=== PATIENT | female | born 1955 | race Two or more races ===

== ENCOUNTER 2020-07-21 15:10 | Outpatient (REF) | payer OTHER, SELFPAY ==
--- NOTE | 2020-07-21 15:14 | MM_ITS ---
EXAMINATION: MM SCREENING DIGITAL BREAST TOMOSYNTHESIS, BILATERAL CLINICAL INFORMATION: Screening. Asymptomatic. Family history breast cancer in sister. The lifetime risk of breast cancer based on the Tyrer-Cuzick Model is 12%. COMPARISON: Mammography: 07/16/2019, 06/30/2018 TECHNIQUE: Digital breast tomosynthesis is performed in both the craniocaudal and mediolateral oblique views along with computer-aided detection (CAD). Synthesized 2D images are generated from the tomosynthesis. FINDINGS: There are scattered areas of fibroglandular density (ACR BI-RADS breast composition Category b). There are no significant masses, abnormal calcifications, or other abnormalities. There is stable small smooth nodularity in both breasts, some intramammary nodes. Grouped dermal calcifications again seen posterior 7:00 left breast. There are bilateral vascular calcifications. No significant changes. MM/MM tomosynthesis screening BI IMPRESSION: No significant changes from prior studies. ASSESSMENT: BI-RADS 2: Benign RECOMMENDATION: Routine annual mammography screening. This patient's information was entered into a reminder system with a target due date for their next mammogram.
== END 2020-07-21 15:11 | disposition home or self-care (01) ==
LOC: HO.MAMMO 15:10
PROVIDERS: PCP Nurse Practitioner Family; Visit Provider Nurse Practitioner Family
DX: Z12.31 Encounter for screening mammogram for malignant neoplasm of breast (principal)
CPT/HCPCS: 77063; 77067

== ENCOUNTER 2021-02-20 10:10 | Emergency (ER) | payer MEDICAID, SELFPAY ==
--- NOTE | 2021-02-20 | ECG_ITS ---
Test Reason : EDMD Blood Pressure : / mmHG Vent. Rate : 059 BPM Atrial Rate : 059 BPM P-R Int : 160 ms QRS Dur : 090 ms QT Int : 440 ms P-R-T Axes : 048 003 006 degrees QTc Int : 435 ms Sinus bradycardia Minimal voltage criteria for LVH, may be normal variant Nonspecific T wave abnormality Abnormal ECG When compared with ECG of 26-NOV-2008 07:33, Nonspecific T wave abnormality now evident in Anterior leads Referred By: Generic ED Physician Electronically Signed By:ALEX BUSCH
--- NOTE | ~2021-02-20 | XR_ITS ---
EXAMINATION: XR CHEST CLINICAL INFORMATION: Hypertension COMPARISON: Chest 11/26/2008 TECHNIQUE: Frontal view of the chest was obtained. FINDINGS: No significant abnormality is noted involving the heart, lungs, mediastinum, bony thorax or soft tissues. XR/XR chest 1V IMPRESSION: Unremarkable chest examination.
[2021-02-20 10:39] VITALS: BP 120/70; PULSE 60; RESP 16; TEMP 37.1; O2SAT 98; BMI 30.3
[2021-02-20 12:36] LABS: MANUAL DIFF FLAG NO
[2021-02-20 12:40] LABS: Basophils Absolute Auto 0.1 X10*3/uL (0.0-0.2); Basophils Percent Auto 0.3 % (0-2); Eosinophils Absolute Auto 0.1 X10*3/uL (0.0-0.4); Eosinophils Percent Auto 0.6 % (0-4); Hematocrit 43.3 % (37-47); Hemoglobin 14.8 g/dl (12.0-16.0); Imm Gran Abs Auto 0.07 X10*3/uL (0.00-0.03); Imm Gran Pct Auto 0.4 % (0.0-0.4); Lymphocytes Absolute Auto 1.7 X10*3/uL (1.2-4.9); Lymphocytes Percent Auto 9.4 % (20-40); Mean Corpuscular HGB Conc 34.2 g/dl (31.0-35.0); Mean Corpuscular Hemoglobin 30.7 pg (27.0-33.0); Mean Corpuscular Volume 89.8 fL (80-98); Mean Platelet Volume 10.9 fL (9.4-12.3); Monocytes Absolute Auto 1.2 X10*3/uL (0.1-1.2); Monocytes Percent Auto 6.6 % (2-11); Neutrophils Absolute Auto 14.7 X10*3/uL (2.0-8.3); Neutrophils Percent Auto 82.7 % (45-73); Platelet Count 219 X10*3/uL (160-400); Red Blood Count 4.82 X10*6/uL (4.20-5.50); Red Cell Distribution Width 13.4 % (11.0-16.0); White Blood Count 17.8 X10*3/uL (4.8-10.8)
[2021-02-20 13:03] LABS: Glucose, Whole Blood 118 mg/dL (60-115)
[2021-02-20 13:04] LABS: Anion Gap 15 (12-20); Blood Urea Nitrogen 25 mg/dL (9-16); Calcium 10.7 mg/dL (8.4-10.2); Carbon Dioxide 29 mmol/L (22-29); Chloride 102 mmol/L (96-108); Creatinine Clr Calc Pharmacy 55.3; Estimated Glomerular Filt Rate 57; Glucose Random 137 mg/dL (60-115); Potassium 3.5 mmol/L (3.3-5.1); Sodium 142 mmol/L (135-145)
[2021-02-20 13:05] LABS: Troponin-I High Sensitivity 4.3 ng/L (<3.5-17.0)
--- NOTE | 2021-02-20 14:06 | ED.GENADULT ---
HPI - General Adult General Chief complaint: General Medical Stated complaint: LOW BP Time Seen by Provider: 02/20/21 13:31 Source: patient Mode of arrival: ambulatory Limitations: no limitations History of Present Illness HPI narrative: 65-year-old female history of hypertension patient taking atenolol 100 mg daily/lisinopril 20 mg daily. Patient recently been checking her blood pressure complaining that her blood pressure sometimes drop to her blood pressure. When blood pressure drops patient feel like she is going to pass out, patient declined any chest pain or shortness of breath. No fever, no chills, no coughing, no urinary tract symptoms no dysuria, no urinary frequency. Related Data Previous Rx's Medication Instructions Recorded cefuroxime axetil 500 mg PO BID #14 tab 02/20/21 Allergies Allergy/AdvReac Type Severity Reaction Status Date / Time No Known Allergies Allergy Unverified 06/16/20 14:47 [No Known Allergies*] Review of Systems Review of Systems: All other systems are reviewed and are negative Constitutional: Reports as per HPI and Reports no additional constitutional complaints Eyes: Reports as per HPI and Reports no additional eye complaints Reports system reviewed and no additional complaints, except as documented Cardiovascular: Reports as per HPI and Reports no additional cardiovascular complaints Respiratory: Reports as per HPI and Reports no additional respiratory complaints Gastrointestinal: Reports as per HPI and Reports no additional gastrointestinal complaints Genitourinary: Reports no additional female genitourinary complaints Musculoskeletal: Reports no additional musculoskeletal complaints Skin/Breast: Reports system reviewed and no additional complaints, except as docu Psychiatric: Reports no additional psychiatric complaints Endocrine: Reports no additional endocrine complaints Hematologic/Lymphatic: Reports no additional hematologic/lymphatic complaints Allergic/Immunologic: Reports no additional allergic/immunologic complaints Reports system reviewed and no additional complaints, except as documented and Reports Abnormal speech present [facility] Social History Social History Alcohol intake: never Smoking Status: Never smoker Use of substances other than those prescribed or required for medical reasons: No Advance Directives: Yes Advance Directives Information Provided: Yes Advance Directives on File: No Patient : No Physical Exam Vital Signs: Vital Signs: Last Vital Signs Temp 97.7 F 02/20/21 15:00 Pulse 62 02/20/21 16:12 Resp 18 02/20/21 16:12 BP 145/67 H 02/20/21 16:12 Pulse Ox 100 02/20/21 16:12 Body Mass Index 30.3 Vital signs have been reviewed as appeared to be correct. Blood pressure normal. Heart rate normal. Respiration rate normal. Temperature normal. Oxygen saturation normal. Appearance: Alert. Oriented X3. No acute distress. Head: Normal external exam. Normocephalic. Atraumatic. No [place] signs noted. No raccoon eyes noted Eyes: PERRLA. EOMI. Conjunctiva and sclera normal. Eyelids normal. ENT: TM's Normal. Pharynx normal. Uvula midline. Moist mucous membranes. No trismus noted. No drooling noted. No muffled voice noted. Neck: Normal inspection. Neck supple. FROM. No adenopathy. Thyroid Normal. No meningeal signs. No neck mass noted. CVS: Normal heart rate and rhythm. Heart sound normal. No murmurs noted. Pulses normal throughout. Respiratory: No respiratory distress. Painless inspiration. Breath sounds normal. No wheezes/rales/rhonchi noted. Chest nontender. No accessory muscle usage noted or decreased air movement noted. Abdomen: Soft and nontender. Bowel sounds normal in all 4 quadrants. No distention noted. No organomegaly noted. No visible injury noted. Back: No CVA tenderness. Full range of motion noted. Skin: Skin warm and dry. Normal skin color. Normal skin turgor. No rashes/lesions/lacerations noted. Extremities: No lower extremity edema. Extremities exhibit normal range of motion. Extremities nontender. Neuro: Oriented X 3. No motor deficit. No sensory deficit. Reflexes normal. Course Course Course Narrative: Assessment and plan. 65-year-old female came in for hypotension at home, patient then in the emergency department for few hours no reported hypotension while in the emergency department, patient remained asymptomatic, patient is taking lisinopril 20 mg and atenolol 100 mg which I thought to be to high dosage, I recommended to the patient to cut down the pills to half dosage, patient stated that she will not do that until get back to her primary doctor. Until then patient was instructed to drink plenty of fluids. Patient has no symptoms for UTI. Patient was instructed to drink plenty of fluids. Leukocytosis could be secondary to UTI. Not meeting criteria for SIRS, no sepsis. Medical Decision Making Lab Data Lab results reviewed: Yes I reviewed the patient's lab results. Result diagrams: 02/20/21 12:27 02/20/21 12:27 Labs: Lab Results 02/20/21 02/20/21 02/20/21 Range/Units 12:26 12:27 12:27 WBC 17.8 H (4.8-10.8) X10*3/uL RBC 4.82 (4.20-5.50) X10*6/uL Hgb 14.8 (12.0-16.0) g/dl Hct 43.3 (37-47) % MCV 89.8 (80-98) fL MCH 30.7 (27.0-33.0) pg MCHC 34.2 (31.0-35.0) g/dl RDW 13.4 (11.0-16.0) % Plt Count 219 (160-400) X10*3/uL MPV 10.9 (9.4-12.3) fL Immature Gran % (Auto) 0.4 (0.0-0.4) % Neut % (Auto) 82.7 H (45-73) % Lymph % (Auto) 9.4 L (20-40) % [place] % (Auto) 6.6 (2-11) % Eos % (Auto) 0.6 (0-4) % Baso % (Auto) 0.3 (0-2) % Lymph # (Auto) 1.7 (1.2-4.9) X10*3/uL [place] # (Auto) 1.2 (0.1-1.2) X10*3/uL Eos # (Auto) 0.1 (0.0-0.4) X10*3/uL Baso # (Auto) 0.1 (0.0-0.2) X10*3/uL Abs Immat Gran (auto) 0.07 H (0.00-0.03) X10*3/uL Absolute Neuts (auto) 14.7 H (2.0-8.3) X10*3/uL Absolute Nucleated RBC 0.000 (0.0-0.012) X10*3/uL Nucleated RBC % (auto) 0.0 (0.0-0.2) /100WBC Sodium 142 (135-145) mmol/L Potassium 3.5 (3.3-5.1) mmol/L Chloride 102 (96-108) mmol/L Carbon Dioxide 29 (22-29) mmol/L Anion Gap 15 (12-20) BUN 25 H (9-16) mg/dL Creatinine 0.99 (0.5-1.4) mg/dL Estim Creat Clear Calc 55.3 Estimated GFR 57 POC Glucose (60-115) mg/dL Random Glucose 137 H (60-115) mg/dL Calcium 10.7 H (8.4-10.2) mg/dL Troponin I High Sens 4.3 (<3.5-17.0) ng/L Urine Color Urine Appearance Urine pH (5.0-8.0) Ur Specific [place] (1.005-1.025) Urine Protein (NEG-TRACE) MG/DL Urine Glucose (UA) (NEG) MG/DL Urine Ketones (NEG) MG/DL Urine Blood (NEG) Urine Nitrite (NEG) Ur Leukocyte Esterase (NEG) 02/20/21 02/20/21 Range/Units 12:31 16:16 WBC (4.8-10.8) X10*3/uL RBC (4.20-5.50) X10*6/uL Hgb (12.0-16.0) g/dl Hct (37-47) % MCV (80-98) fL MCH (27.0-33.0) pg MCHC (31.0-35.0) g/dl RDW (11.0-16.0) % Plt Count (160-400) X10*3/uL MPV (9.4-12.3) fL Immature Gran % (Auto) (0.0-0.4) % Neut % (Auto) (45-73) % Lymph % (Auto) (20-40) % [place] % (Auto) (2-11) % Eos % (Auto) (0-4) % Baso % (Auto) (0-2) % Lymph # (Auto) (1.2-4.9) X10*3/uL [place] # (Auto) (0.1-1.2) X10*3/uL Eos # (Auto) (0.0-0.4) X10*3/uL Baso # (Auto) (0.0-0.2) X10*3/uL Abs Immat Gran (auto) (0.00-0.03) X10*3/uL Absolute Neuts (auto) (2.0-8.3) X10*3/uL Absolute Nucleated RBC (0.0-0.012) X10*3/uL Nucleated RBC % (auto) (0.0-0.2) /100WBC Sodium (135-145) mmol/L Potassium (3.3-5.1) mmol/L Chloride (96-108) mmol/L Carbon Dioxide (22-29) mmol/L Anion Gap (12-20) BUN (9-16) mg/dL Creatinine (0.5-1.4) mg/dL Estim Creat Clear Calc Estimated GFR POC Glucose 118 H (60-115) mg/dL Random Glucose (60-115) mg/dL Calcium (8.4-10.2) mg/dL Troponin I High Sens (<3.5-17.0) ng/L Urine Color YELLOW Urine Appearance HAZY Urine pH 6.0 (5.0-8.0) Ur Specific [place] 1.010 (1.005-1.025) Urine Protein NEG (NEG-TRACE) MG/DL Urine Glucose (UA) NEG (NEG) MG/DL Urine Ketones NEG (NEG) MG/DL Urine Blood NEG (NEG) Urine Nitrite NEG (NEG) Ur Leukocyte Esterase 1+ H (NEG) Imaging Data Chest x-ray: Radiologist's impression: Unremarkable chest examination. ECG Data Interpretation: sinus bradycardia at 59 beats per minute, LVH, left axis deviation, nonspecific T-wave changes, no major change from old EKG. Discharge Plan Discharge Clinical Impression: Hypotension, Leukocytosis UTI (urinary tract infection) Qualifiers: Urinary tract infection type: acute cystitis Hematuria presence: without hematuria Qualified Code(s): N30.00 - Acute cystitis without hematuria Patient Disposition: Home, Self-Care Instructions: Hypertension (ED) Additional Instructions: He should cut your blood pressure pills in to have of the does. Lisinopril should be 10 mg orally once a day instead of 20 mg pill. Atenolol should be 50 mg orally once a day instead of 100 mg pill a day. Prescriptions: New cefuroxime axetil 500 mg tablet 500 mg PO BID Qty: 14 RF: 0 Referrals: Physician,Unknown [Primary Care Provider] - 2 days
[2021-02-20 15:00] VITALS: BP 119/55; PULSE 61; RESP 18; TEMP 36.5; O2SAT 97
[2021-02-20] MEDS: 0.9 % Sodium Chloride 1,000 ML 999 ML IVCONT (15:27)
[2021-02-20 16:12] VITALS: BP 145/67; PULSE 62; RESP 18; O2SAT 100
[2021-02-20 16:22] LABS: Glucose Urine UA NEG (NEG); Leukocyte Esterase Urine 1+ (NEG); Nitrite Urine NEG (NEG); UACC Culture Trigger YES; Urine Blood NEG (NEG); Urine Ketones NEG (NEG); Urine Protein NEG (NEG-TRACE)
[2021-02-20 16:23] LABS: Appearance Urine HAZY; Color Urine YELLOW
[2021-02-20 16:31] LABS: Bacteria Urine 2+ /LPF; Mucus Urine 2+ /LPF; RBC Urine 0-2 /HPF (0); Squamous Epithelial Cell Urine 2+ /LPF
== END 2021-02-20 16:48 | disposition home or self-care (01) ==
PROVIDERS: Emergency Provider Emergency Medicine
DX: I95.9 Hypotension, unspecified (principal); D72.829 Elevated white blood cell count, unspecified; N30.00 Acute cystitis without hematuria; R00.1 Bradycardia, unspecified
CPT/HCPCS: 36415; 71045; 80048; 81001; 81003; 82947; 84484; 85025; 87086; 93005; 96360; 99284

== ENCOUNTER 2021-03-21 07:16 | Outpatient (REF) | payer MEDICAID, SELFPAY ==
[2021-03-21 07:53] LABS: MANUAL DIFF FLAG NO
[2021-03-21 07:58] LABS: Basophils Percent Auto 0.6 % (0-2); Eosinophils Absolute Auto 0.2 X10*3/uL (0.0-0.4); Eosinophils Percent Auto 2.5 % (0-4); Hematocrit 42.3 % (37-47); Hemoglobin 14.2 g/dl (12.0-16.0); Imm Gran Abs Auto 0.01 X10*3/uL (0.00-0.03); Imm Gran Pct Auto 0.2 % (0.0-0.4); Lymphocytes Percent Auto 31.5 % (20-40); Mean Corpuscular HGB Conc 33.6 g/dl (31.0-35.0); Mean Corpuscular Hemoglobin 30.1 pg (27.0-33.0); Mean Corpuscular Volume 89.6 fL (80-98); Monocytes Absolute Auto 0.5 X10*3/uL (0.1-1.2); Monocytes Percent Auto 7.1 % (2-11); Neutrophils Absolute Auto 3.8 X10*3/uL (2.0-8.3); Neutrophils Percent Auto 58.1 % (45-73); Platelet Count 232 X10*3/uL (160-400); Red Blood Count 4.72 X10*6/uL (4.20-5.50); Red Cell Distribution Width 13.3 % (11.0-16.0); White Blood Count 6.5 X10*3/uL (4.8-10.8)
[2021-03-21 08:45] LABS: Alanine Aminotransferase 22 U/L (0-31); Albumin Level 4.6 g/dL (3.5-5.0); Alkaline Phosphatase 124 U/L (39-117); Anion Gap 15 (12-20); Aspartate Amino Transferase 25 U/L (5-31); Bilirubin Total 2.4 mg/dL (0.0-1.0); Blood Urea Nitrogen 9 mg/dL (9-16); C Reactive Protein 0.59 mg/dL (< or = 0.50); Calcium 10.5 mg/dL (8.4-10.2); Carbon Dioxide 25 mmol/L (22-29); Chloride 108 mmol/L (96-108); Cholesterol 133 mg/dL; Erythrocyte Sedimentation Rate 10 MM/HR (0-20); Estimated Glomerular Filt Rate > 60; Glucose Random 97 mg/dL (60-115); HDL Cholesterol 49 mg/dL; LDL Cholesterol Calculated 55 mg/dl; Potassium 3.9 mmol/L (3.3-5.1); Sodium 144 mmol/L (135-145); Total Protein 7.8 g/dL (6.5-8.0); Triglycerides 146 mg/dL
[2021-03-21 08:46] LABS: Creatinine Urine 42.61 mg/dL; Microalbumin Urine < 5.0 mg/L
[2021-03-21 09:04] LABS: Thyroid Stimulating Hormone 0.67 uIU/mL (0.32-4.0); Vitamin D 25-OH Total 29.7 ng/mL (>30)
[2021-03-21 09:27] LABS: Folate 11.5 ng/mL (> or = 4.0); Vitamin B12 634 pg/mL (200-900)
== END 2021-03-21 07:17 | disposition home or self-care (01) ==
LOC: HO.LAB 07:16
PROVIDERS: PCP Internal Medicine; Visit Provider Internal Medicine
DX: E11.9 Type 2 diabetes mellitus without complications (principal); E78.2 Mixed hyperlipidemia; I10 Essential (primary) hypertension
CPT/HCPCS: 36415; 80053; 80061; 82043; 82306; 82607; 82746; 84443; 85025; 85652; 86140

== ENCOUNTER 2021-07-24 13:39 | Outpatient (REF) | payer MEDICAID, SELFPAY ==
--- NOTE | ~2021-07-24 | MM_ITS ---
EXAMINATION: MM SCREENING DIGITAL BREAST TOMOSYNTHESIS, BILATERAL CLINICAL INFORMATION: Screening. Asymptomatic. The lifetime risk of breast cancer based on the Tyrer-Cuzick Model is 10%. COMPARISON: Mammography: 07/21/2020, 07/16/2019, 06/30/2018 TECHNIQUE: Digital breast tomosynthesis is performed in both the craniocaudal and mediolateral oblique views along with computer-aided detection (CAD). Synthesized 2D images are generated from the tomosynthesis. FINDINGS: There are scattered areas of fibroglandular density (ACR BI-RADS breast composition Category b). There are no significant masses, abnormal calcifications, or other abnormalities. There is scattered stable nodularity again seen bilateral outer breasts and 2 inferior mid 6:00 left breast similar to prior exams. No developing density. There are vascular calcifications again seen as well as grouped benign dermal calcifications posterior 7:00 left breast. MM/MM tomosynthesis screening BI IMPRESSION: No significant changes from prior studies. ASSESSMENT: BI-RADS 2: Benign RECOMMENDATION: Routine annual mammography screening. This patient's information was entered into a reminder system with a target due date for their next mammogram.
== END 2021-07-24 13:40 | disposition home or self-care (01) ==
LOC: HO.MAMMO 13:39
PROVIDERS: Visit Provider Internal Medicine
DX: Z12.31 Encounter for screening mammogram for malignant neoplasm of breast (principal)
CPT/HCPCS: 77063; 77067

== ENCOUNTER 2022-07-26 14:12 | Outpatient (REF) | payer MEDICARE, MEDICAID, SELFPAY ==
--- NOTE | ~2022-07-26 | MM_ITS ---
EXAMINATION: BONE DENSITOMETRY CLINICAL INDICATION: Menopause. COMPARISON: This is the patient's baseline examination. TECHNIQUE: Using a Reppler DXA System (software version: 13.1) manufactured by [employer], dual-energy x-ray absorptiometry was performed of the lumbar spine and left hip. The images are of good technical quality. Summary results are attached. FINDINGS: AP SPINE L1-L4: BMD 1.146 g/cm2, Z-score 1.0, T-score -0.3, normal. LEFT FEMUR, NECK: BMD 0.937 g/cm2, Z-score 0.6, T-score -0.7, normal. LEFT FEMUR, TOTAL: BMD 1.011 g/cm2, Z-score 1.0, T-score 0.0, normal. IDENTIFIED RISK FACTORS: Menopause. HISTORY OF FRACTURE: None listed. MEDICATIONS: None listed. MM/XR DEXA axial skeleton IMPRESSION: 1. DIAGNOSIS: Normal bone density based on the lowest T-score value of -0.7 in the femoral neck applying World Health Organization criteria. 2. 10-YEAR FRACTURE RISK PREDICTION, FRAX: According to the guidelines, FRAX calculation should only be performed on patients in the osteopenia bone density category. Therefore, FRAX was not performed on this patient. 3. Treatment Recommendations: NOF guidelines recommend consideration for treatment in postmenopausal women and men age 50 and older presenting with the following: -A hip or vertebral (clinical or morphometric) fracture. -T-score less than or equal to -2.5 at the femoral neck or spine after appropriate evaluation to exclude secondary causes. -Low bone mass at the hip or spine and a 10-year fracture probability by FRAX of greater than or equal to 3% for hip fracture or greater than or equal to 20% for major osteoporotic fracture based on the [place] adapted WHO algorithm. 4. Other Recommendations: All treatment decisions require clinical judgment and consideration of individual patient factors, including patient preferences, comorbidities, previous drug use, risk factors not captured in the FRAX model (e.g. frailty, falls, vitamin D deficiency, increased bone turnover, interval significant decline in bone density) and possible under or overestimation of fracture risk by FRAX. FUTURE SCAN RECOMMENDATION: People with diagnosed cases of osteoporosis or at high risk for fracture should have regular bone mineral density tests. For patients eligible for Medicare, routine testing is allowed once every 2 years. The testing frequency can be increased to one year for patients who have rapidly progressing disease, those who are receiving or discontinuing medical therapy to restore bone mass, or have additional risk factors.
== END 2022-07-26 14:13 | disposition home or self-care (01) ==
LOC: HO.MAMMO 14:12
PROVIDERS: Visit Provider Internal Medicine
DX: Z13.820 Encounter for screening for osteoporosis (principal); Z78.0 Asymptomatic menopausal state
CPT/HCPCS: 77080

== ENCOUNTER 2022-08-16 14:05 | Outpatient (REF) | payer MEDICARE, SELFPAY ==
--- NOTE | ~2022-08-16 | MM_ITS ---
EXAMINATION: MM SCREENING DIGITAL BREAST TOMOSYNTHESIS, BILATERAL CLINICAL INFORMATION: Screening. Asymptomatic. The lifetime risk of breast cancer based on the Tyrer-Cuzick Model is 11.0%. COMPARISON: Mammography: July 24, 2021 and studies dating back to January 04, 2015 TECHNIQUE: Digital breast tomosynthesis is performed in both the craniocaudal and mediolateral oblique views along with computer-aided detection (CAD). Synthesized 2D images are generated from the tomosynthesis. FINDINGS: There are scattered areas of fibroglandular density (ACR BI-RADS breast composition Category b). There are no new significant masses, abnormal calcifications, or other abnormalities. Stable bilateral circumscribed densities again seen. MM/MM tomosynthesis screening BI IMPRESSION: No significant changes from prior exam. ASSESSMENT: BI-RADS 2: Benign RECOMMENDATION: Routine annual mammography screening. This patient's information was entered into a reminder system with a target due date for their next mammogram.
== END 2022-08-16 14:06 | disposition home or self-care (01) ==
LOC: HO.MAMMO 14:05
PROVIDERS: PCP Internal Medicine; Visit Provider Internal Medicine
DX: Z12.31 Encounter for screening mammogram for malignant neoplasm of breast (principal)
CPT/HCPCS: 77063; 77067

== ENCOUNTER 2023-03-01 07:35 | Outpatient (REF) | payer MEDICARE, MEDICAID, SELFPAY ==
--- NOTE | ~2023-03-01 | US_ITS ---
EXAMINATION: US ABDOMEN COMPLETE CLINICAL INFORMATION: History of elevated bilirubin. COMPARISON: Ultrasound abdomen limited 10/28/2019. TECHNIQUE: Real-time imaging of the abdominal viscera. FINDINGS: PANCREAS: Normal. ABDOMINAL AORTA: The proximal, mid, and distal segments are normal in caliber. INFERIOR VENA CAVA: Visualized portions are normal. LIVER: The liver is normal in size. The liver contour is normal. There is diffuse increased liver parenchymal echogenicity. No focal hepatic lesion. There is no intrahepatic biliary duct dilatation seen. GALLBLADDER: An increased gallbladder polyp is noted, now measuring 1.1 x 0.4 x 0.5 cm. Alternatively, this may represent 2 adjacent smaller gallbladder polyps abutting one another. The polyps previously noted measured 5 mm and 3 mm in maximal diameter. The gallbladder is physiologically distended without evidence of stones, sludge, wall thickening or pericholecystic fluid. COMMON BILE DUCT: Normal in caliber measuring 0.4 cm in diameter. RIGHT KIDNEY: At the interpolar aspect, a 1.1 cm benign, simple right renal cyst is seen. No hydronephrosis or renal calculi. The kidney measures 10.8 cm in maximum dimension. LEFT KIDNEY: Normal. No hydronephrosis. No renal calculi or focal parenchymal lesions. The kidney measures 10.8 cm in maximum dimension. SPLEEN: Normal. The spleen measures 10.7 cm in maximum dimension. FREE FLUID: None. US/US abdomen complete IMPRESSION: 1. There is generalized increase in hepatic echotexture, consistent with fatty infiltration or hepatocellular disease. Please correlate clinically. No focal hepatic mass or intrahepatic biliary dilatation is seen. 2. An increased gallbladder polyp or adjacent polyps are noted, with maximal aggregate diameter of 1.1 cm. General Surgery evaluation and management is recommended. 3. A 1.1 cm benign, simple right renal cyst is seen, for which no imaging follow-up is recommended.
== END 2023-03-01 07:36 | disposition home or self-care (01) ==
LOC: HO.US 07:35
PROVIDERS: Visit Provider Student in an Organized Health Care Education/Training Program
DX: E80.6 Other disorders of bilirubin metabolism (principal)
CPT/HCPCS: 76700

== ENCOUNTER → 2023-03-22 11:00 | Outpatient (BNVA) | payer MEDICARE, SELFPAY | PROVIDERS: PCP Student in an Organized Health Care Education/Training Program; Referring Provider Student in an Organized Health Care Education/Training Program; Visit Provider Surgery | DX: K82.4 Cholesterolosis of gallbladder (principal) | CPT/HCPCS: 99202 ==

== ENCOUNTER 2023-04-09 12:40 | Outpatient (REF) | payer MEDICARE, SELFPAY ==
[2023-04-13 03:27] LABS: HPV mRNA E6/E7 rflx Not Detected (Not Detected)
== END 2023-04-09 12:41 | disposition home or self-care (01) ==
LOC: HO.LNP 12:40
PROVIDERS: PCP Student in an Organized Health Care Education/Training Program; Visit Provider Advanced Practice Midwife
DX: Z01.419 Encounter for gynecological examination (general) (routine) without abnormal findings (principal); Z11.51 Encounter for screening for human papillomavirus (HPV)
CPT/HCPCS: 87624; 88142

== ENCOUNTER 2023-04-09 12:40 | Outpatient (AMB) | payer MEDICARE, SELFPAY ==
--- NOTE | 2023-04-09 12:54 | A.OFFVIS_ITS ---
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 Scribed for SITA Barger by Shavon Bledsoe medical transport specialist, on 04/09/2023 at 1:10 pm EST. Cash Applications Coordinator: Cash Applications Coordinator Present (Melly) Allergies No Known Allergies [No Known Allergies*] Allergy (Verified 04/09/23 12:56) HPI HPI Comments History of Present Illness Details She is a postmenopausal woman presenting for annual exam with complains of itching in groin area. Denies any new soaps or detergents Patient admits she tries to eat a healthy diet, Some calcium w/cheeses. She stays active with exercise. Currently sexually active. Reports VB, light x 1 episode after intercourse. Reports not SA often, decreased libido. Denies any vaginal discharge,itching-ext. only. STD screening offered; she declines and states it was recently done at [facility] along with bloodwork. Denies family hx of ovarian cancer. FMHx of HBP. Has appt. for w/specialist for HNT. Last pap smear 01/25/17. Hx. LEEP 2014. Last mammogram 08/16/22. Scheduling colonoscopy. [facility] Medical History Elevated cholesterol GERD (gastroesophageal reflux disease) High blood pressure Hypothyroid Type 2 diabetes mellitus Surgical History (Updated 04/09/23 @ 13:31 by Kimmy Love CNM) H/O colonoscopy History of loop electrical excision procedure (LEEP) Hx of dilation and curettage Family History Father Prostate cancer Sister History of breast cancer BRCA negative Family/Other Colon cancer Social History Alcohol intake: never Patient Tobacco Use Status: Never used Tobacco Sexual orientation: Straight/Heterosexual Gender identity: Female Female Reproductive History Menstrual control method: permanent sterilization Permanent Sterilization: BTL Menopause type: surgical Total pregnancies: 2 Full term: 2 Number of Living Children: 2 Date of last pap smear: 01/25/17 (neg pap and hpv) History of abnormal pap smear: Yes (08/13 rg 2 09/12/ colpo rg 2 10/14 leep rg 1) Date of Mammogram: 08/16/22 Physical Exam Vital Signs: Last Vital Signs BP 148/106 H 04/09/23 12:56 BMI result Body Mass Index 29.6 Const General: cooperative, healthy appearing, no acute distress, well developed and alert Orientation/consciousness: patient oriented x3 HEENT Head: Yes normal to inspection Eyes General: appearance normal, both eyes and all related structures Neck Neck: Yes normal visual inspection Thyroid: Thyroid normal Chest Chest palpation & inspection: normal inspection of the chest Breast/axilla inspection: normal inspection of the breasts (no puckering, dimpling, peau de orange, retraction, discharge, masses) Breast/axilla palpation: normal palpation of the breasts Resp Effort & Inspection: normal respiratory effort GI Inspection: Yes normal to inspection Palpation (GI): Soft to palpation (to palpation) Rectal Exam - Female: deferred General: Yes bladder normal to inspection External Female Exam: normal external appearance and normal appearance of the urethra Speculum Exam - Vagina: normal appearance of the vagina, normal palpation and vagina atrophic Speculum Exam - Cervix: normal appearance of the cervix and normal palpation Bimanual exam- vagina & uterus: normal palpation and normal palpation Bimanual Exam- Adnexa, other: normal adnexae and no masses Skin General skin exam: no rashes or lesions noted Neuro General: patient oriented x3 Cognition (Neuro): normal cognition Extrem General: Yes normal to inspection Psych Attitude: cooperative Thought process: Normal thought process present Thought content: Normal thought content present Assessment & Plan Assessment & Plan (1) Encounter for well woman exam: Code(s): Z01.419 - Encounter for gynecological examination (general) (routine) without abnormal findings Plan: Discussed: Current recommendations for pap smears per ASCCP guidelines. Breast awareness and periodic self breast exams. Encouraged yearly mammograms. Maintaining a healthy lifestyle including a well balanced diet including Calcium and Vitamin D and routine exercise. Release of records from [facility] regarding STD lab work. Advised to clean groin area with water only, no soaps to the area, dry well and wear cotton underwear. Use of vaginal lubrication for vaginal dryness. Contact office if experience VB episode after intimacy or any PMB. Normal libido changes with aging. All of her questions and concerns were addressed to the best of my ability RTO in 1 year for AG. Orders: Orders Pap Smear Today Z01.419 - Encounter for gynecological examination (general) (routine) without abnormal findings Coding Level of Care Code New Pt Prev Care >65yr (35659) Diagnoses Encounter for well woman exam Z01.419
[2023-04-09 12:56] VITALS: BP 148/106; BMI 29.6
== END 2023-04-09 14:00 | disposition home or self-care (01) ==
LOC: HO.HWS 12:40
PROVIDERS: PCP Student in an Organized Health Care Education/Training Program; Visit Provider Advanced Practice Midwife
DX: Z01.419 Encounter for gynecological examination (general) (routine) without abnormal findings (principal)
CPT/HCPCS: 99387

== ENCOUNTER 2023-04-11 07:17 | Day surgery (SDC) | payer MEDICARE, SELFPAY ==
[2023-04-08 15:27] VITALS: BMI 31.4
[2023-04-11] VITALS (11 sets, daily range): BP systolic 146–187; BP diastolic 67–95; PULSE 56–64; RESP 12–18; TEMP 36.1–36.7; O2SAT 95–100
--- NOTE | 2023-04-11 07:36 | MHC.SHP ---
Pre-Procedural Eval Section A Date of Service: 04/11/23 The patient is an INPATIENT: No Changes since office visit: No Cold of Flu in the past 2 weeks, No New Medical Problems, No Changes in Medication and No Patient answered all questions The History & Physical has been completed within 30 days and I have reviewed it.: Yes Section B Chief Complaint: Cholesterolosis of gallbladder Allergies: Allergies Allergy/AdvReac Type Severity Reaction Status Date / Time No Known Allergies Allergy Verified 04/09/23 12:56 [No Known Allergies*] Plan I have reviewed the history and physical and performed a pertinent physical examination on my patient. No changes have occurred unless specified. Time Spent With Patient Time: Total time managing care of this patient today ____ minutes.
[2023-04-11 08:06] LABS: Glucose, Whole Blood 105 mg/dL (60-115)
[2023-04-11] MEDS: Lactated Ringers 1,000 ML 100 ML IVCONT (08:12)
--- NOTE | 2023-04-11 08:37 | HO.ANESPROP2 ---
HPI - Anesthesia Eval Consult details Narrative: lap choly PMFSH Active Problems Active Problems: All Active Problems (Updated 04/09/23 @ 13:31 by Kimmy Love CNM) Gallbladder polyp (Acute) Past Medical History Medical History Elevated cholesterol GERD (gastroesophageal reflux disease) High blood pressure Hypothyroid Type 2 diabetes mellitus Family History Family History Father Prostate cancer Sister History of breast cancer BRCA negative Family/Other Colon cancer Family history of problems with anesthesia: No Surgical History Surgical History H/O colonoscopy History of loop electrical excision procedure (LEEP) Hx of dilation and curettage History of Problems with Anesthesia: No Social History Social History Alcohol intake: never Patient Tobacco Use Status: Never used Tobacco Are you DNR?: No Advance Directives: No Advance Directives Information Provided: Yes Nutrition Risks: No Nutritional Risk Sexual orientation: Straight/Heterosexual Gender identity: Female Meds Allergies Allergy/AdvReac Type Severity Reaction Status Date / Time No Known Allergies Allergy Verified 04/11/23 08:23 [No Known Allergies*] Active Medications: Current Medications Lactated Ringer's (Lr) 1,000 mls @ 100 mls/hr IVCONT .Q10H MAYITO Last Admin: 04/11/23 08:12 Dose: 100 mls/hr Home Medications Medication Instructions Recorded Confirmed Last Taken Type atorvastatin 20 mg tablet 20 mg PO DAILY 03/22/23 04/08/23 Unknown History cholecalciferol (vitamin D3) 25 25 mcg PO DAILY 03/22/23 04/08/23 Unknown History mcg (1,000 unit) capsule levothyroxine 75 mcg capsule 75 mcg PO DAILY 03/22/23 04/08/23 04/11/23 History losartan 100 mg tablet 100 mg PO DAILY 03/22/23 04/08/23 04/11/23 History metoprolol succinate 25 mg 12.5 mg PO BID 03/22/23 04/08/23 04/11/23 History tablet,extended release 24 hr Exam Exam Date and Time: April 11, 2023 0837 Height,Weight and Vital Signs: Height 5 ft 1 in Weight 75.296 kg Last Vital Signs Temp 98.1 F 04/11/23 08:16 Pulse 63 04/11/23 08:16 Resp 18 04/11/23 08:16 BP 187/95 H 04/11/23 08:16 Pulse Ox 97 04/11/23 08:16 O2 Del Method Room Air 04/11/23 08:16 Pertinent Lab Results Pertinent Lab Results: Laboratory Tests 04/11/23 08:03 POC Glucose 105 Airway Mallampati Class: III TM Dist: <=3cm Heart: rrr Lungs: cta Assessment and Plan Assessment Anesthesia Assessment: Anesthesia Plan Discussed and Chart Reviewed Final Anesthetic Review Family History of Problems with Anesthesia: No History of Problems with Anesthesia: No NPO: Yes ASA Class: II Final Preanesthetic Review: No Changes in Pt Med Stat, Meds/Allgs Chart Reviewed, Consent Obtained/Reviewed and Anes Risks/Benef Reviewed Patient Risk: Intermediate Procedure Risk: Intermediate Anesthetic Plan Anesthetic Plan: GA and Agree w/ Assess. and Plan Disposition: Standard PACU
--- NOTE | 2023-04-11 08:44 | PC.NURSE ---
dr. gardiner updated of which medications patient took at 0630 and bp result. okay to proceed no interventions at this time.
--- NOTE | 2023-04-11 09:56 | W.PM.OPN ---
Operative Note Operative Note Date of Service: 04/11/23 Narrative: Preoperative diagnosis: [] enlarging gallbladder polyp Postop diagnosis: [] save Procedure [] laparoscopic cholecystectomy Surgeon: [] Lauri Dredge Or Barge Shore Hand: [] Verónica STILL Type of Anesthesia: [] general Indication for surgery: [] corpulent abdomen. Omental and gastric adhesions to the gallbladder. Findings: [] Patient brought to the operating room, placed on operative table in supine position, after adequate level of general anesthesia was induced, the patient's abdomen was prepped and draped in usual sterile fashion. Using an infraumbilical incision from a prior scar from previous surgery, Gonzalez technique was used to insufflate the abdominal cavity to 15 mm of CO2. Upper midline and right subcostal ports were placed under direct laparoscopic view, and the patient was placed in reverse Trendelenburg position, tilted to the left. Gallbladder was grasped using laparoscopic graspers, and retracted superiorly and laterally. Soft gastric and omental adhesions were swept off the gallbladder, where it's was hilum was approached. Cystic artery and cystic duct were each identified, circumferentially skeletonized, traced directly to the gallbladder and critical view obtained. Each was clipped proximally x2, distally x1, and transected. Gallbladder was then cauterized from the gallbladder fossa using Bovie. Specimen was placed in an Endo-Catch bag, andretrieved through the umbilical port. Abdominal cavity was copiously irrigated, and secured hemostasis. All ports were removed under direct laparoscopic view. Wounds were closed in the following manner; umbilical wound had it's fascia reapproximated using interrupted 0 Vicryl sutures. Skin wounds were closed using subcuticular 4-0 Vicryl sutures followed by Steri-Strips and sterile dressings. Wounds were infiltrated 0.5% Marcaine at completion. Sponge, needle, and instrument counts reported to be correct. Patient tolerated the procedure well and emerged anesthesia in stable condition. EBL minimal
[2023-04-11] MEDS: fentaNYL citrate/PF 100 MCG/2 ML VIAL 25 MCG IVPUSH (10:25)
== END 2023-04-11 11:48 | disposition home or self-care (01) ==
PROVIDERS: PCP Student in an Organized Health Care Education/Training Program; Visit Provider Surgery
PROC: 0FT44ZZ Resection of Gallbladder, Percutaneous Endoscopic Approach (ICD-10-PCS; CPT 47562; principal; 2023-04-11 09:30)
DX: K80.10 Calculus of gallbladder with chronic cholecystitis without obstruction (principal); K82.8 Other specified diseases of gallbladder; K66.0 Peritoneal adhesions (postprocedural) (postinfection); I10 Essential (primary) hypertension; E78.00 Pure hypercholesterolemia, unspecified; E03.9 Hypothyroidism, unspecified; E11.9 Type 2 diabetes mellitus without complications; Z79.899 Other long term (current) drug therapy
CPT/HCPCS: 47562; 82947; 88304; J0690; J1100; J2250; J2405; J2795; J3010

== ENCOUNTER → 2023-04-11 07:17 | Outpatient (BNV) | payer MEDICARE, SELFPAY | PROVIDERS: PCP Student in an Organized Health Care Education/Training Program; Visit Provider Surgery | DX: K81.1 Chronic cholecystitis (principal) | CPT/HCPCS: 47562 ==

== ENCOUNTER 2023-04-19 11:35 | Outpatient (AMB) | payer MEDICARE, SELFPAY ==
[2023-04-19 11:49] VITALS: BP 176/92; PULSE 86
--- NOTE | 2023-04-19 11:49 | A.OFFVIS_ITS ---
Intake Vital Signs 04/19/23 11:49 Weight 160 lb BP 176/92 H Blood Pressure Location Rt brachial Position Sitting Pulse 86 Intake Visit Reasons: S/P lap yony Intake Note: Patient here s/p lap yony. Patient reports steri strips are irritating and itchy. Denies bleeding, pain or oozing. Reports incisions healing well. Pediatric Oncology Nurse Required: No Accompanied by: Self / Same As Patient Allergies No Known Allergies [No Known Allergies*] Allergy (Verified 04/19/23 11:50) HPI HPI Comments History of Present Illness Details Aside from mild incisional discomfort, patient is doing well. She has time diet. She is having normal bowel habits. She is slowly but steadily increasing her activity level. Pathology was reviewed and is benign. [facility] Medical History Elevated cholesterol GERD (gastroesophageal reflux disease) High blood pressure Hypothyroid Type 2 diabetes mellitus Surgical History H/O colonoscopy History of laparoscopic cholecystectomy (04/11/23) History of loop electrical excision procedure (LEEP) Hx of dilation and curettage Family History Father Prostate cancer Sister History of breast cancer BRCA negative Family/Other Colon cancer Social History Alcohol intake: never Patient Tobacco Use Status: Never used Tobacco Sexual orientation: Straight/Heterosexual Gender identity: Female Physical Exam Vital Signs: Last Vital Signs Pulse 86 04/19/23 11:49 BP 176/92 H 04/19/23 11:49 Eyes Other: Anicteric GI Other: Abdomen soft. All wounds clean dry and intact and healing uneventfully. Assessment & Plan Assessment & Plan (1) Gallbladder polyp: Code(s): K82.4 - Cholesterolosis of gallbladder Plan Patient has been given local wound instructions, and will follow-up p.r.n. Coding Level of Care Code Global (41168) Diagnoses Gallbladder polyp K82.4
== END 2023-04-19 12:01 | disposition home or self-care (01) ==
PROVIDERS: PCP Student in an Organized Health Care Education/Training Program; Visit Provider Surgery
DX: K82.4 Cholesterolosis of gallbladder (principal)
CPT/HCPCS: 99024

== ENCOUNTER → 2023-04-19 11:35 | Outpatient (BNVA) | payer MEDICARE, SELFPAY | PROVIDERS: PCP Student in an Organized Health Care Education/Training Program; Visit Provider Surgery ==

== ENCOUNTER 2023-06-26 10:30 | Outpatient (AMB) | payer MEDICARE, SELFPAY ==
--- NOTE | 2023-06-26 10:46 | A.OFFVIS_ITS ---
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 It seems that numerous recordings while getting checked at doctor's office are generally high but at home the blood pressure readings are substantially lower. Even today, blood pressure recording is 178/96 mm Hg but she states home recordings them across 140 mm Hg and generally much lower than that, more so in the 120s. Hence not clear why there is a big discrepancy. She does not seem to be too anxious. In terms of symptoms, does not have any chest pain or shortness of breath or in fact anything cardiac sounding. No history of any coronary artery disease, myocardial infarction or cardiomyopathy. [facility] Medical History Elevated cholesterol GERD (gastroesophageal reflux disease) High blood pressure Hypothyroid Type 2 diabetes mellitus Surgical History History of laparoscopic cholecystectomy (04/11/23) History of loop electrical excision procedure (LEEP) Hx of dilation and curettage H/O colonoscopy Family History Father Prostate cancer Sister History of breast cancer BRCA negative Family/Other Colon cancer Social History Alcohol intake: never Patient Tobacco Use Status: Never used Tobacco Sexual orientation: Straight/Heterosexual Gender identity: Female Review of Systems Const Denies chills, Denies daytime sleepiness, Denies fatigue, Denies fever(s), Denies frequent falls, Denies night sweats, Denies snoring, Denies weakness, Denies weight gain and Denies weight loss Eyes Denies loss of vision ENT Denies dizziness and Denies hearing loss Card Denies chest pain, Denies chest pain with activity, Denies syncope, Denies rapid heart rate, Denies edema, Denies claudication, Denies leg edema, Denies lightheadedness, Denies palpitations, Denies dyspnea, Denies dyspnea on exertion and Denies orthopnea Resp Denies cough, Denies excessive phlegm production, Denies dyspnea, Denies dyspnea on exertion, Denies snoring and Denies wheezing GI Denies abdominal pain, Denies hematochezia, Denies change in bowel habits, Denies change in stool character, Denies heartburn, Denies nausea and Denies vomiting Denies hematuria, Denies urinary frequency and Denies dysuria Musc Denies arthralgias, Denies muscle weakness, Denies numbness and Denies tingling Skin/Breast Denies nail changes and Denies rash Neuro Denies Abnormal speech present, Denies dizziness, Denies syncope, Denies frequent falls, Denies loss of vision, Denies memory loss, Denies numbness, Denies tingling and Denies weakness Psych Denies depression and Denies memory loss Endo Denies fatigue and Denies palpitations Aller/Immun Denies wheezing Physical Exam Vital Signs: Last Vital Signs Pulse 62 06/26/23 10:50 BP 178/96 H 06/26/23 10:50 BMI result Body Mass Index 29.7 Const General: comfortable and no acute distress Orientation/consciousness: patient oriented x3 HEENT Other: Unremarkable Head: Yes normal to inspection Neck Neck: Yes normal visual inspection Chest Chest palpation & inspection: normal inspection of the chest Resp Auscultation: clear to auscultation bilaterally Cardio Palpation: normal PMI Heart sounds: S1 normal heart sound present, S2 normal heart sound present, no gallops, no murmurs and no rubs GI Palpation (GI): Soft to palpation Back/Spine/Pelvis Other: unremarkable Skin General skin exam: no rashes or lesions noted Neuro General: patient oriented x3 Speech: No Abnormal speech present Extrem General: Yes normal to inspection Psych Mental Status: mental status grossly normal Office Procedures EKG Details: EKG with sinus rhythm at 62/Min; no significant ST-T changes and otherwise [place]remark[place] [id number], Complete Assessment & Plan Assessment & Plan (1) Essential hypertension: Code(s): I10 - Essential (primary) hypertension Plan Unclear if this is just poorly controlled hypertension or if there is truly high readings in the clinic but not at home. Advised to bring the diary next time. Also advised her to bring the home acute when she uses for blood pressure checking so we can double check here. Will get echocardiogram to look for any LV dysfunction or left ventricular hypertrophy or diastolic dysfunction. These will be indicated above poorly controlled hypertension. Based on the above, may need medication changes. To be followed up in a few weeks time. Orders: Orders CA echo transthoracic complete Today I10 - Essential (primary) hypertension, I51.7 - Cardiomegaly, I51.89 - Other ill-defined heart diseases Coding Level of Care Code New Pt Level 3 (02095) Diagnoses Essential hypertension I10 CPT Codes EKG - CPT: 18310-[id number], Complete ([id number])
[2023-06-26 10:50] VITALS: BP 178/96; PULSE 62; BMI 29.7
== END 2023-06-26 11:07 | disposition home or self-care (01) ==
PROVIDERS: PCP Student in an Organized Health Care Education/Training Program; Visit Provider Internal Medicine
DX: I10 Essential (primary) hypertension (principal)
CPT/HCPCS: 93010; 99213

== ENCOUNTER → 2023-06-26 10:30 | Outpatient (BNVA) | payer MEDICARE, SELFPAY | PROVIDERS: PCP Student in an Organized Health Care Education/Training Program; Visit Provider Internal Medicine | DX: I10 Essential (primary) hypertension (principal) | CPT/HCPCS: 93005; 99212 ==

== ENCOUNTER → 2023-07-11 14:07 | Outpatient (BNVA) | payer MEDICARE, SELFPAY | PROVIDERS: PCP Student in an Organized Health Care Education/Training Program; Visit Provider Physician Assistant ==

== ENCOUNTER 2023-07-23 09:27 | Outpatient (REF) | payer MEDICARE, SELFPAY ==
[2023-07-23 11:27] LABS: MANUAL DIFF FLAG NO
[2023-07-23 11:42] LABS: Basophils Percent Auto 0.5 % (0-2); Eosinophils Absolute Auto 0.2 X10*3/uL (0.0-0.4); Eosinophils Percent Auto 2.8 % (0-4); Hematocrit 46.5 % (37.0-47.0); Hemoglobin 15.6 g/dl (12.0-16.0); Imm Gran Abs Auto 0.01 X10*3/uL (0.00-0.03); Imm Gran Pct Auto 0.2 % (0.0-0.4); Lymphocytes Absolute Auto 2.2 X10*3/uL (1.2-4.9); Lymphocytes Percent Auto 33.9 % (20-40); Mean Corpuscular HGB Conc 33.5 g/dl (31.0-35.0); Mean Corpuscular Hemoglobin 29.7 pg (27.0-33.0); Mean Corpuscular Volume 88.6 fL (80.0-98.0); Mean Platelet Volume 11.6 fL (9.4-12.3); Monocytes Absolute Auto 0.5 X10*3/uL (0.1-1.2); Neutrophils Absolute Auto 3.6 x10*3/uL (2.0-8.3); Neutrophils Percent Auto 54.6 % (45-73); Platelet Count 172 X10*3/uL (160-400); Red Blood Count 5.25 X10*6/uL (4.20-5.50); Red Cell Distribution Width 14.2 % (11.0-16.0); White Blood Count 6.5 X10*3/uL (4.8-10.8)
[2023-07-23 12:21] LABS: Alanine Aminotransferase 23 U/L (0-31); Albumin Level 4.6 g/dL (3.5-5.0); Alkaline Phosphatase 123 U/L (39-117); Anion Gap 17 (12-20); Aspartate Amino Transferase 22 U/L (5-31); Bilirubin Total 3.3 mg/dL (0.0-1.0); Blood Urea Nitrogen 13 mg/dL (9-16); Calcium 10.6 mg/dL (8.4-10.2); Carbon Dioxide 24 mmol/L (22-29); Chloride 107 mmol/L (96-108); Cholesterol 130 mg/dL (<200); Estimated Glomerular Filt Rate > 60; Glucose Random 103 mg/dL (60-115); HDL Cholesterol 59 mg/dL (>40); Iron 141 mcg/dL (30-160); LDL Cholesterol Calculated 51 mg/dL (<100); Percent Iron Saturation 46 % (15-50); Potassium 3.6 mmol/L (3.3-5.1); Sodium 144 mmol/L (135-145); Total Iron Binding Capacity 309 mcg/dL (228-428); Total Protein 8.2 g/dL (6.5-8.0); Triglycerides 102 mg/dL (<150); Unsaturated Iron Binding 168 ug/dL
[2023-07-23 12:29] LABS: Ferritin 77 ng/mL (10-250); Free T4 (Free Thyroxine) 1.12 ng/dL (0.71-1.85); Thyroid Stimulating Hormone 1.22 uIU/mL (0.32-4.0)
[2023-07-23 12:33] LABS: Folate 7.9 ng/mL (> or = 4.0); Vitamin B12 1105 pg/mL (200-900)
[2023-07-23 12:57] LABS: Estimated Average Glucose 108 mg/dL; Hemoglobin A1c % 5.4 % (<6.0)
[2023-07-30 00:09] LABS: VITAMIN D (1,25 OH) D3 61 pg/mL; Vit D (1,25-Dihydroxy) Total 61 pg/mL (18-72); Vitamin D (1,25 OH) D2 <8 pg/mL
== END 2023-07-23 09:28 | disposition home or self-care (01) ==
LOC: HO.HHCL 09:27
PROVIDERS: Visit Provider Student in an Organized Health Care Education/Training Program
DX: E11.9 Type 2 diabetes mellitus without complications (principal); L65.9 Nonscarring hair loss, unspecified; E03.9 Hypothyroidism, unspecified; Z13.21 Encounter for screening for nutritional disorder
CPT/HCPCS: 36415; 80053; 80061; 82607; 82652; 82728; 82746; 83036; 83540; 84439; 84443; 85025

== ENCOUNTER → 2023-07-25 13:29 | Outpatient (REF) | payer MEDICARE, SELFPAY ==
--- NOTE | 2023-07-25 13:31 | CA_ITS ---
Transthoracic Echocardiogram Patient (Last, First, Middle): Laura Arellano E Gender: Female Date of : 1955 Age: 68 Procedure Date: 07/25/2023 Procedure Type: Transthoracic Echocardiogram Location: OP Height: 157.48 cm Weight: 71.67 kg BSA: 1.73 m2 Heart Rate: bpm BP: 130 / 90 mmHg Band Attacher: TO Referring MD: Arian Hernandez MD Silver Service Waiter: Rafiq Vazquez MD Symptoms: I10 - Essential (primary) hypertension Study Quality: Fair ECG Rhythm: Sinus Conclusions: - 1. Normal LV systolic and diastolic function 2. Normal cardiac valvular Dopplers 3. Mildly elevated right ventricular systolic pressure of 40 mmHg 4. No gross pericardial effusion Findings Left Ventricle Normal left ventricular size, thickness, and systolic function. The visually estimated ejection fraction is between 60-65%. Spectral Doppler is indicative of a normal filling pattern. Right Ventricle Normal right ventricular cavity size and systolic function. Atria Both atria are normal in size. There is no evidence of interatrial shunt. Aortic Valve Normal aortic valve structure and function. There is no aortic valve stenosis. There is no aortic valve regurgitation. Mitral Valve Normal mitral valve structure and function. There is trace mitral valve regurgitation. There is no mitral valve stenosis. Pulmonic Valve The pulmonic valve is likely normal. There is trace pulmonic valve regurgitation. Tricuspid Valve Normal tricuspid valve structure. There is mild tricuspid valve regurgitation. Normal right atrial pressure. Mild pulmonary hypertension is present. Great Vessels All visible segments of the aorta are normal in size. The pulmonary artery was not well visualized. Venous The inferior vena cava is normal in size and collapses greater than 50% with inspiration. Pericardium/Pleural There is no evidence of pericardial effusion. Prior Study Comparison No prior study available for comparison. Measurements 2D Linear Measurements IVSd: 0.92 0.6-0.9/0.6-1.0 cm LVIDd: 4.47 3.9-5.3/4.2-5.9 cm LVIDd Index: 2.58 2.4-3.2/2.2-3.1 cm/m2 LVIDs: 2.65 2.0-3.6 cm LVPWd: 0.77 0.7-1.1 cm LA Diam: 3.70 2.7-3.8/3.0-4.0 cm LAIDs Index: 2.14 1.5-2.3 cm/m2 LV Mass: 149.73 67-162/88-224 g LV Mass Index: 86.55 43-95/49-115 g/m2 LVOT Diam: 1.80 3.0+(-)1.3 cm 2D Systolic Function EF 4C: 62.10 >55% EF 2C: 65.40 >55% EF BiP: 64.20 >55% Mitral Valve MV Pk E: 0.90 MV PK A: 0.83 MV Decel Time: 214.00 E/A: 1.10 E'Lateral: 9.90 E'Medial: 8.49 E/E' Med: 10.50 E/E' Lat: 9.00 PHT: 63.00 MVA PHT: 3.49 Decel Mccormick: 4.19 Aortic Valve AoV Pk Jason: 1.18 AoV Mn Jason: 0.76 AoV VTI: 0.26 AoV Pk Grad: 6.00 Aov Mn Grad: 3.00 JYOTSNA Cont.VTI: 2.25 LVOT LVOT Pk Jason: 0.97 LVOT Mn Jason: 0.59 LVOT VTI: 0.23 LVOT Pk Grad: 4.00 LVOT Mn Grad: 2.00 LVOT Diam: 1.80 LVOT Area: 2.54 Diastolic Function MV Pk E: 0.90 MV Pk A: 0.83 E/A: 1.10 E'Medial: 8.49 E/E' Med: 10.50 E' Laterial: 9.90 E/E' Lat: 9.00 Right Ventricle TAPSE (mm): 25.60 TVS' Jason: 11.90 Tricuspid Valve TR Pk Jason: 3.03 TR Pk Grad: 37.00 RA Press: 3.00 RVSP: 40.00 Great Vessels Aorta Sinus of Valsalva: 2.80 2.0-3.[address] [place]: 2.29 1.7-3.4 cm Ao Asc: 3.00 2.1-3.4 cm Updated in Other Vendor System with Status of Final Rafiq Vazquez MD electronically signed on 07/26/2023 8:48:54 AM with status of Final
== END ==
LOC: HO.CARD 13:29
PROVIDERS: PCP Student in an Organized Health Care Education/Training Program; Visit Provider Internal Medicine
DX: I51.7 Cardiomegaly (principal); I51.89 Other ill-defined heart diseases
CPT/HCPCS: 93306

== ENCOUNTER → 2023-07-25 13:31 | Outpatient (BNV) | payer MEDICARE, SELFPAY | PROVIDERS: PCP Student in an Organized Health Care Education/Training Program; Visit Provider Internal Medicine Cardiovascular Disease | DX: I36.1 Nonrheumatic tricuspid (valve) insufficiency (principal) | CPT/HCPCS: 93306 ==

== ENCOUNTER 2023-08-19 14:22 | Outpatient (REF) | payer MEDICARE, SELFPAY | END 2023-08-19 14:23 | disposition home or self-care (01) | LOC: HO.MAMMO 14:22 | PROVIDERS: PCP Student in an Organized Health Care Education/Training Program; Visit Provider Internal Medicine | DX: Z12.31 Encounter for screening mammogram for malignant neoplasm of breast (principal) | CPT/HCPCS: 77063; 77067 ==

== ENCOUNTER → 2023-08-19 14:30 | Outpatient (BNV) | payer MEDICARE, SELFPAY | PROVIDERS: PCP Student in an Organized Health Care Education/Training Program; Visit Provider Radiology Diagnostic Radiology | DX: Z12.31 Encounter for screening mammogram for malignant neoplasm of breast (principal) | CPT/HCPCS: 77063; 77067 ==

== ENCOUNTER 2023-08-27 14:50 | Outpatient (AMB) | payer MEDICARE, SELFPAY ==
[2023-08-27 15:12] VITALS: BP 140/90; PULSE 59
--- NOTE | 2023-08-27 15:12 | MHC.OFFVIS ---
Intake Vital Signs 08/27/23 15:12 Height 5 ft 2 in Weight 164 lb 0.383 oz BMI 30.0 BP 140/90 H Blood Pressure Location Lt brachial Position Sitting Pulse 59 Pulse Source Pulse Oximeter Intake Visit Reasons: f/up echo HS Food Operations Manager Required: No Allergies nifedipine Allergy (Mild, Verified 08/27/23 15:14) Unknown Medication List - Last Reconciled 08/27/23 by Alana Cox, MONAE-C atorvastatin 20 mg PO DAILY bisacodyl (Dulcolax (bisacodyl)) 20 mg (4 x 5 mg) PO ONCE 1 day cholecalciferol (vitamin D3) 25 mcg PO DAILY levothyroxine 75 mcg PO DAILY losartan 100 mg PO DAILY metoprolol tartrate 50 mg PO BID pantoprazole 20 mg PO BID polyethylene glycol 3350 (Miralax) 238 grams PO ONCE PRN 1 day HPI f/up echo HS HPI Details Laura is a 68-year-old female past medical history of hypertension, hyperlipidemia, obesity who recently underwent an echocardiogram and presents for follow-up. Today she reports that her home blood pressures for the most part are good. She brings her automated cuff and shows me the electronic readings. The systolic ranges from 130 to 160s recently. Over the summer systolic was more 120-130. She reports no recent medication adjustment. She she is taking meds as directed. She denies any concerning symptoms. No chest discomfort at rest or with activity. No shortness of breath, palpitations, presyncope, syncope, PND, orthopnea or edema. Home sleep study to be done next week. [facility] Medical History GERD (gastroesophageal reflux disease) Type 2 diabetes mellitus Hypothyroid Elevated cholesterol High blood pressure Surgical History History of laparoscopic cholecystectomy (04/11/23) History of loop electrical excision procedure (LEEP) Hx of dilation and curettage H/O colonoscopy Family History Father Prostate cancer Sister History of breast cancer BRCA negative Family/Other Colon cancer Social History Household Members: Spouse Alcohol intake: never Patient Tobacco Use Status: Never used Tobacco Sexual orientation: Straight/Heterosexual Gender identity: Female Review of Systems Const All systems reviewed & are unremarkable except as noted in HPI and below ENT Reports dizziness Card Denies chest pain, Denies chest pain at rest, Denies chest pain with activity, Denies rapid heart rate, Denies pedal edema, Denies edema, Denies leg edema, Denies lightheadedness, Denies palpitations, Denies dyspnea, Denies dyspnea on exertion and Denies orthopnea Resp Denies cough, Denies dyspnea and Denies dyspnea on exertion GI Denies hematochezia and Denies change in stool character Musc Denies abnormal gait, Denies limited range of motion, Denies muscle cramps, Denies muscle weakness, Denies numbness, Denies radiating pain into limb, Denies stiffness and Denies tingling Neuro Denies abnormal gait, Reports dizziness, Denies numbness and Denies tingling Endo Denies palpitations Physical Exam Vital Signs: Last Vital Signs Pulse 59 08/27/23 15:12 BP 140/90 H 08/27/23 15:12 BMI result Body Mass Index 30.0 Const General: cooperative, healthy appearing, comfortable and no acute distress Orientation/consciousness: patient oriented x3 Neck Neck: Yes normal visual inspection Resp Effort & Inspection: normal respiratory effort Auscultation: clear to auscultation bilaterally, no crackles, no rales, no rhonchi and no wheezes Cardio Jugular venous distension: no JVD Rate: regular rate Rhythm: regular rhythm Heart sounds: S1 normal heart sound present, S2 normal heart sound present, no murmurs and no rubs Neuro General: patient oriented x3 Extrem General: Yes normal to inspection, No no pedal edema and No calf tenderness Psych Appearance: grossly normal Mental Status: mental status grossly normal Speech and movement: Normal speech and movement present Assessment & Plan Assessment & Plan (1) Essential hypertension: Code(s): I10 - Essential (primary) hypertension Plan: History of hypertension. Currently on losartan 100 mg daily and metoprolol tartrate 50 mg b.i.d.. Blood pressure not yet optimally controlled. Elevated in the office today at 140/90. Echocardiogram done 07/25/2023 showing EF 60-65%, normal LV thickness, normal RV, mildly elevated RV systolic pressure of 40 mmHg. A home sleep study has been ordered however not completed as of yet. 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 Labs done on 07/23/2023 showed creatinine 0.83, potassium 3.6. Will add Aldactone 12.5 mg daily to help with blood pressure control. BMP planned for 1 week from now. She will continue to monitor blood pressures at home. Cardiology follow-up in 4-6 weeks, sooner if needed (2) Abnormal echocardiogram findings without diagnosis: Code(s): R93.1 - Abnormal findings on diagnostic imaging of heart and coronary circulation Plan: Elevated RVSP. Adding Aldactone. Sleep study pending Orders: Orders Basic Metabolic Panel Today I10 - Essential (primary) hypertension Medications: New spironolactone 12.5 mg (1/2 x 25 mg) PO DAILY 30 days 15 tabs 2RF Coding Level of Care Code Est Pt Level 3 (30058) Diagnoses Essential hypertension I10 Abnormal echocardiogram findings without diagnosis R93.1 Time Spent (min) 24
== END 2023-08-27 15:58 | disposition home or self-care (01) ==
PROVIDERS: PCP Student in an Organized Health Care Education/Training Program; Visit Provider Nurse Practitioner Family
DX: I10 Essential (primary) hypertension (principal); R93.1 Abnormal findings on diagnostic imaging of heart and coronary circulation
CPT/HCPCS: 99213

== ENCOUNTER → 2023-08-27 14:50 | Outpatient (BNVA) | payer MEDICARE, SELFPAY | PROVIDERS: PCP Student in an Organized Health Care Education/Training Program; Visit Provider Nurse Practitioner Family | DX: I10 Essential (primary) hypertension (principal); R93.1 Abnormal findings on diagnostic imaging of heart and coronary circulation | CPT/HCPCS: 99212 ==

== ENCOUNTER → 2023-09-04 14:42 | Outpatient (REF) | payer MEDICARE, SELFPAY ==
[2023-09-04 15:28] LABS: Anion Gap 10 (12-20); Blood Urea Nitrogen 14 mg/dL (9-16); Calcium 10.5 mg/dL (8.4-10.2); Carbon Dioxide 29 mmol/L (22-29); Chloride 105 mmol/L (96-108); Estimated Glomerular Filt Rate > 60; Glucose Random 120 mg/dL (60-115); Potassium 3.9 mmol/L (3.3-5.1); Sodium 140 mmol/L (135-145)
== END ==
LOC: HO.SL 14:42
PROVIDERS: Absent Provider Nurse Practitioner Family; PCP Student in an Organized Health Care Education/Training Program; Visit Provider Internal Medicine
DX: I10 Essential (primary) hypertension (principal); G47.33 Obstructive sleep apnea (adult) (pediatric)
CPT/HCPCS: 36415; 80048

== ENCOUNTER → 2023-10-17 14:44 | Outpatient (REF) | payer OTHER, SELFPAY | LOC: HO.SL 14:44 | PROVIDERS: PCP Student in an Organized Health Care Education/Training Program; Visit Provider Internal Medicine | DX: G47.33 Obstructive sleep apnea (adult) (pediatric) (principal) | CPT/HCPCS: 95806 ==

== ENCOUNTER → 2023-10-17 14:53 | Outpatient (BNV) | payer OTHER, SELFPAY | PROVIDERS: PCP Student in an Organized Health Care Education/Training Program; Visit Provider Internal Medicine | DX: R06.83 Snoring (principal) | CPT/HCPCS: 95806 ==

== ENCOUNTER → 2023-10-21 13:21 | Outpatient (BNVA) | payer OTHER, SELFPAY | PROVIDERS: PCP Student in an Organized Health Care Education/Training Program; Visit Provider Nurse Practitioner Family | DX: Z01.810 Encounter for preprocedural cardiovascular examination (principal); I10 Essential (primary) hypertension; R93.1 Abnormal findings on diagnostic imaging of heart and coronary circulation | CPT/HCPCS: 93005; 99212 ==

== ENCOUNTER 2023-12-12 06:51 | Day surgery (SDC) | payer MEDICARE, SELFPAY ==
[2023-12-10 13:38] VITALS: BMI 30.2
[2023-12-12 07:15] VITALS: BMI 29.8
[2023-12-12 07:28] VITALS: BP 161/74; PULSE 56; RESP 16; TEMP 36.7; O2SAT 98
--- NOTE | 2023-12-12 07:35 | HO.ANESPROP2 ---
HPI - Anesthesia Eval Consult details Narrative: for colonoscopy [facility] Active Problems Active Problems: All Active Problems (Updated 04/18/23 @ 14:21 by RASHID Cedeno) Preop cardiovascular exam (Acute) Abnormal echocardiogram findings without diagnosis (Acute) Encounter for screening colonoscopy (Acute) Essential hypertension (Acute) Gallbladder polyp (Acute) Past Medical History Medical History GERD (gastroesophageal reflux disease) Type 2 diabetes mellitus Hypothyroid Elevated cholesterol High blood pressure Narrative: ECHO: Normal LV, RV, and valves. Mild PHTN. Normal IVC. Family History Family History Father Prostate cancer Sister History of breast cancer BRCA negative Family/Other Colon cancer Family history of problems with anesthesia: No Surgical History Surgical History History of laparoscopic cholecystectomy (04/11/23) History of loop electrical excision procedure (LEEP) Hx of dilation and curettage H/O colonoscopy History of Problems with Anesthesia: No Social History Social History Household Members: Spouse Alcohol intake: never Patient Tobacco Use Status: Never used Tobacco Use of substances other than those prescribed or required for medical reasons: No Are you DNR?: No Advance Directives: No Advance Directives Information Provided: Yes Sexual orientation: Straight/Heterosexual Gender identity: Female Meds Allergies Allergy/AdvReac Type Severity Reaction Status Date / Time nifedipine Allergy Mild Unknown Verified 12/12/23 07:17 Home Medications Medication Instructions Recorded Confirmed Last Taken Type atorvastatin 20 mg tablet 20 mg PO DAILY 03/22/23 12/12/23 Unknown History cholecalciferol (vitamin D3) 25 25 mcg PO DAILY 03/22/23 12/12/23 Unknown History mcg (1,000 unit) capsule levothyroxine 75 mcg capsule 75 mcg PO DAILY 03/22/23 12/12/23 12/12/23 06:00 History pantoprazole 20 mg tablet,delayed 20 mg PO BID 07/11/23 12/12/23 Unknown History release Exam Height,Weight and Vital Signs: Height 5 ft 2 in Weight 73.936 kg Last Vital Signs Temp 98.0 F 12/12/23 07:28 Pulse 56 12/12/23 07:28 Resp 16 12/12/23 07:28 BP 161/74 H 12/12/23 07:28 Pulse Ox 98 12/12/23 07:28 O2 Del Method Room Air 12/12/23 07:28 Airway Mallampati Class: II TM Dist: <=3cm Neck ROM: Full Loose/Missing/Broken Teeth: Yes, Upper and Lower Heart: ok Lungs: ok Assessment and Plan Assessment Anesthesia Assessment: Anesthesia Plan Discussed and Chart Reviewed Final Anesthetic Review Family History of Problems with Anesthesia: No History of Problems with Anesthesia: No NPO: Yes ASA Class: II Final Preanesthetic Review: No Changes in Pt Med Stat, Meds/Allgs Chart Reviewed, Consent Obtained/Reviewed and Anes Risks/Benef Reviewed Patient Risk: Low Procedure Risk: Low Anesthetic Plan Anesthetic Plan: MAC: and Agree w/ Assess. and Plan Disposition: Standard PACU
[2023-12-12 07:56] LABS: Glucose, Whole Blood 119 mg/dL (60-115)
--- NOTE | 2023-12-12 08:23 | MHC.SHP ---
Pre-Procedural Eval Section A - 24 Hr Update-Section A only Date of Service: 12/12/23 Section B - Complete if H&P > 30 days Chief Complaint: screening Details of Present Illness: GERD (gastroesophageal reflux disease) Type 2 diabetes mellitus Hypothyroid Elevated cholesterol High blood pressure Surgical History History of laparoscopic cholecystectomy (04/11/23) History of loop electrical excision procedure (LEEP) Hx of dilation and curettage H/O colonoscopy Allergies: Allergies Allergy/AdvReac Type Severity Reaction Status Date / Time nifedipine Allergy Mild Unknown Verified 12/12/23 07:17 Review of Systems Review of Systems Comment: 10 point ROS negative Exam Exam Comment: Gen appear: No acute distress HEENT: no icterus Chest: No overt resp distress Abd: soft, nontender, nondistended Psych: Stable affect, answering questions appropriately Neuro: A/Ox3 noted to move all extremities spontaneously Ext: no peripheral edema Plan Diagnosis/Plan: Unchanged I have reviewed the history and physical and performed a pertinent physical examination on my patient. No changes have occurred unless specified. Time Spent With Patient Time: Total time managing care of this patient today ____ minutes.
--- NOTE | 2023-12-12 08:41 | P.OP_ITS ---
Operative Note Operative Note Date of Service: 12/12/23 Narrative: Procedure: Colonoscopy Indication: Screening Endoscopist: Calli Michelle MD Anesthesia Provider: Dr Rolf Kaur Anesthesia type: MAC Instrument: Olympus [id number]-[id number] Consent: Indication, risks vs benefits, and alternatives were discussed with the patient who gave written informed consent to proceed. EKG, pulse, pulse oximetry and blood pressure were monitored throughout the procedure. Please see anesthesia flowsheet. Procedure: The patient was brought to the procedure room and placed in the left lateral decubitus position. IV medications were administered by the anesthesia provider in attendance. A digital rectal exam was performed which was normal. A distal attachment cap was affixed to the colonoscope which was then inserted through the anus and advanced through the colon to the cecum at 75 cm,and terminal ileum. Mucosa was carefully examined under high definition white light as the instrument was slowly withdrawn in a retrograde panoramic fashion. Retroflexion was performed in rectum. The procedure was not difficult. There were no immediate obvious complications. The quality of the prep was BBPS: 3+2+3 = adequate Withdrawal time 11 minutes. Limitations: No limitations. Findings: Mucosa: Normal to cecum and terminal ileum. Protruding lesions: * 1 sessile polyp of size 2 mm in ascending colon. Cold forceps polypectomy was performed. The polyp was completely removed and retrieved. * Medium internal hemorrhoids without stigmata of recent bleeding. Impression: 1. Normal colon and terminal ileum mucosa 2. Total of 1 polyp removed 3. Internal hemorrhoids Recommendations: - Follow path results. - Repeat colonoscopy in 7-10 years if polyp is an adenoma
[2023-12-12 09:06] VITALS: BP 112/61; PULSE 66; RESP 18; TEMP 36.2; O2SAT 96
[2023-12-12 09:21] VITALS: BP 115/68; PULSE 64; RESP 18; TEMP 36.2; O2SAT 99
== END 2023-12-12 10:07 | disposition home or self-care (01) ==
PROVIDERS: PCP Student in an Organized Health Care Education/Training Program; Visit Provider Internal Medicine
PROC: 0DJD8ZZ Inspection of Lower Intestinal Tract, Via Natural or Artificial Opening Endoscopic (ICD-10-PCS; CPT 45378; principal; 2023-12-12 08:00)
DX: Z12.11 Encounter for screening for malignant neoplasm of colon (principal); D12.2 Benign neoplasm of ascending colon; K64.8 Other hemorrhoids; K21.9 Gastro-esophageal reflux disease without esophagitis; I10 Essential (primary) hypertension; E78.00 Pure hypercholesterolemia, unspecified; E03.9 Hypothyroidism, unspecified; E11.9 Type 2 diabetes mellitus without complications; Z79.899 Other long term (current) drug therapy; Z88.8 Allergy status to other drugs, medicaments and biological substances
CPT/HCPCS: 45380; 82947; 88305; J2704

== ENCOUNTER → 2023-12-12 06:51 | Outpatient (BNV) | payer MEDICARE, SELFPAY | PROVIDERS: PCP Student in an Organized Health Care Education/Training Program; Visit Provider Internal Medicine | DX: Z12.11 Encounter for screening for malignant neoplasm of colon (principal); D12.2 Benign neoplasm of ascending colon; K64.8 Other hemorrhoids | CPT/HCPCS: 45380 ==

== ENCOUNTER 2023-12-26 10:45 | Outpatient (AMB) | payer OTHER, SELFPAY ==
--- NOTE | 2023-12-26 10:49 | MHC.OFFVIS ---
Intake Vital Signs 12/26/23 10:51 Height 5 ft 2 in Weight 165 lb 8.821 oz BMI 30.3 BP 168/88 H Blood Pressure Location Lt brachial Position Sitting Pulse 52 Intake Visit Reasons: s/p colon Intake Note: Laura presents in the office as a follow up colonoscopy. CC: No concerns just here for results. Line Repairer Required: No Allergies nifedipine Allergy (Mild, Verified 12/26/23 10:50) Unknown HPI HPI Comments History of Present Illness Details A 68 y/o female f/u after screening colonoscopy- BP up A bit anxious today- Reviewed procedure, path, recommendations Appetite good , bowels are normal No N/V/D No CP, SOB- PFSH Medical History GERD (gastroesophageal reflux disease) Type 2 diabetes mellitus Hypothyroid Elevated cholesterol High blood pressure Surgical History History of laparoscopic cholecystectomy (04/11/23) History of loop electrical excision procedure (LEEP) Hx of dilation and curettage H/O colonoscopy Family History Father Prostate cancer Sister History of breast cancer BRCA negative Family/Other Colon cancer Social History Household Members: Spouse Alcohol intake: never Patient Tobacco Use Status: Never used Tobacco Sexual orientation: Straight/Heterosexual Gender identity: Female Review of Systems Const All systems reviewed & are unremarkable except as noted in HPI and below Card Denies chest pain and Denies dyspnea Resp Denies dyspnea GI Denies abdominal pain Physical Exam Vital Signs: Last Vital Signs Pulse 52 12/26/23 10:51 BP 168/88 H 12/26/23 10:51 BMI result Body Mass Index 30.3 Const General: cooperative, healthy appearing, comfortable and no acute distress Orientation/consciousness: patient oriented x3 Limitations: no limitations Resp Effort & Inspection: normal respiratory effort and able to speak in complete sentences GI Palpation (GI): Soft to palpation and nontender Auscultation: normal bowel sounds Skin General skin exam: no rashes or lesions noted Neuro General: patient oriented x3 Extrem General: Yes full ROM Psych Appearance: grossly normal Mental Status: mental status grossly normal Speech and movement: Normal speech and movement present Affect: normal affect Attitude: cooperative Thought process: Normal thought process present Thought content: Normal thought content present Insight: Good insight present (Psych) Judgement: Good judgement present (Psych) Results Reviewed Results Reviewed: indings: Mucosa: Normal to cecum and terminal ileum. Protruding lesions: 1 sessile polyp of size 2 mm in ascending colon. Cold forceps polypectomy was performed. The polyp was completely removed and retrieved. Medium internal hemorrhoids without stigmata of recent bleeding. Impression: 1. Normal colon and terminal ileum mucosa 2. Total of 1 polyp removed 3. Internal hemorrhoids carey: Laura Arellano Age/Sex: 68/F Attending: Calli Michelle MD : 1955 Submitted by: Calli Michelle MD Copies to: Barbara Breen MD MR #: [id number] Status: [facility] Collected: 12/12/23 Location: [facility] Received: 12/12/23 Diagnosis Colon, ascending, polypectomy: Fragments of tubular adenoma; negative for high-grade dysplasia or carcinoma. Clinical History Pre-Op Dx: Screening Post-Op Dx: Colon polyp, hemorrhoids Microscopic Description Microscopic sections reviewed. Material Received Polyp ascending colon Gross Description Received in formalin labeled ?polyp ascending colon? are 2 lu-pink irregular tissue fragments each measuring 0.2 cm, submitted in toto in a cassette labeled A. CEDS Copies To Barbara Breen MD [address] [place] [address] Calli Michelle MD [address] [place] [address], [address] [place] [address] [email or web address] NOTE: Unless otherwise stated, all tissue is formalin-fixed and paraffin-embedded. Some or all of the immunohistochemical tests reported herein may have been developed and their performance characteristics determined by [facility]. They have not been cleared or approved by the U.S. Food and Drug Administration (FDA). However, the FDA has determined that such clearance or approval is not necessary. This laboratory is certified under the Clinical Laboratory Improvement Amendments of 1988 (CLIA) as qualified to perform high complexity clinical laboratory testing. Patient: Laura Arellano Age/Sex: 68/F [facility] [id number] MR#: [id number] Page 1 of 2 Assessment & Plan Assessment & Plan (1) Tubular adenoma of colon: Code(s): D12.6 - Benign neoplasm of colon, unspecified Plan: 5 year repeat colonoscopy (2) Hemorrhoids: Code(s): K64.9 - Unspecified hemorrhoids Plan: HFD avoid strain Plan HFD avoid strain Repeat colonoscopy 5 years Patient Instructions: HFD avoid strain Repeat colonoscopy 5 years Coding Level of Care Code Est Pt Level 3 (96768) Diagnoses Tubular adenoma of colon D12.6 Hemorrhoids K64.9 Time Spent (min) 20
[2023-12-26 10:51] VITALS: BP 168/88; PULSE 52; BMI 30.3
== END 2023-12-26 13:30 | disposition home or self-care (01) ==
PROVIDERS: PCP Student in an Organized Health Care Education/Training Program; Visit Provider Physician Assistant
DX: D12.6 Benign neoplasm of colon, unspecified (principal); K64.9 Unspecified hemorrhoids
CPT/HCPCS: 99213

== ENCOUNTER → 2023-12-26 10:45 | Outpatient (BNVA) | payer OTHER, SELFPAY | PROVIDERS: PCP Student in an Organized Health Care Education/Training Program; Visit Provider Physician Assistant | DX: D12.6 Benign neoplasm of colon, unspecified (principal); K64.9 Unspecified hemorrhoids | CPT/HCPCS: 99212 ==

== ENCOUNTER 2024-04-15 13:50 | Outpatient (AMB) | payer OTHER, SELFPAY ==
--- NOTE | 2024-04-15 14:01 | MHC.OFFVIS ---
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 She is doing well with no concerns. Attempting to eat a healthy diet with calcium and vitamin D and stays active with exercise. Currently sexually active. Denies any vaginal dryness or irritation. STI testing offered; she declined. Last pap smear; 2022. History of abnormal Pap due in 2025. Last mammogram; 2022. Colonoscopy is UTD. Denies any family history of ovarian or colon cancer. Family history of breast cancer sister, BRCA negative. PENDING SALE TO [facility] Medical History GERD (gastroesophageal reflux disease) Type 2 diabetes mellitus Hypothyroid Elevated cholesterol High blood pressure Surgical History History of laparoscopic cholecystectomy (04/11/23) History of loop electrical excision procedure (LEEP) Hx of dilation and curettage H/O colonoscopy Family History Father Prostate cancer Sister History of breast cancer BRCA negative Family/Other Colon cancer Social History Household Members: Spouse Alcohol intake: never Patient Tobacco Use Status: Never used Tobacco Sexual orientation: Straight/Heterosexual Gender identity: Female Female Reproductive History Menstrual Menopause type: natural Total pregnancies: 2 Full term: 2 Number of Living Children: 2 Date of last pap smear: 04/09/23 (neg pap and hpv) History of abnormal pap smear: Yes (08/13 cin2 09/12 colpo cin2 10/14 leep cin1 01/14 neg, neg) Date of Mammogram: 08/19/23 (Birad 1) Review of Systems Const All systems reviewed & are unremarkable except as noted in HPI and below Reports as per HPI Eyes Reports no additional complaints ENT Reports no additional complaints Card Reports no additional complaints Resp Reports no additional complaints GI Reports as per HPI and Reports no additional complaints Reports as per HPI Musc Reports no additional complaints Skin/Breast Reports as per HPI Neuro Reports no additional complaints Psych Reports no additional complaints Endo Reports no additional complaints Bhaskar/Lymph Reports no additional complaints Aller/Immun Reports no additional complaints Physical Exam Vital Signs: Last Vital Signs BP 118/88 04/15/24 14:02 BMI result Body Mass Index 31.5 Const General: cooperative, healthy appearing and no acute distress Orientation/consciousness: patient oriented x3 HEENT Head: Yes normal to inspection Eyes General: appearance normal, both eyes and all related structures Neck Neck: Yes normal visual inspection Thyroid: Thyroid normal Chest Chest palpation & inspection: normal inspection of the chest and other (no puckering, dimpling, peau de orange, retraction, discharge, masses) Breast/axilla inspection: normal inspection of the breasts Breast/axilla palpation: normal palpation of the breasts Resp Effort & Inspection: normal respiratory effort GI Inspection: Yes normal to inspection Palpation (GI): Soft to palpation Rectal Exam - Female: deferred Other: External hypopigmentation dark black irregular with a flaky area in the right labia minora General: Yes bladder normal to palpation External Female Exam: normal external appearance and normal appearance of the urethra Speculum Exam - Vagina: normal appearance of the vagina, normal palpation and normal vaginal discharge Speculum Exam - Cervix: normal appearance of the cervix and normal palpation Bimanual exam- vagina & uterus: normal bimanual exam, normal palpation, uterine size normal, bladder normal to palpation, normal palpation and non-tender Bimanual Exam- Adnexa, other: no masses Skin General skin exam: no rashes or lesions noted Rashes: no rashes Neuro General: patient oriented x3 Cognition (Neuro): normal cognition Extrem General: Yes normal to inspection Psych Appearance: well kempt Attitude: cooperative Thought process: Normal thought process present Assessment & Plan Assessment & Plan (1) Encounter for well woman exam with routine gynecological exam: Code(s): Z01.419 - Encounter for gynecological examination (general) (routine) without abnormal findings Category: Medical (2) Vulvar lesion: Code(s): N90.89 - Other specified noninflammatory disorders of vulva and perineum Category: Medical Plan Discussed: Current recommendations for pap smears per ASCCP guidelines. Breast awareness, periodic self breast exams and yearly mammogram. Maintain a healthy lifestyle, well balanced diet including Calcium 1,200 mg and Vitamin D 600 IU daily, and routine exercise. Advised vulvar skin biopsy to determine any abnormalities including cancer of the vulvar tissue, she agrees to schedule follow up appointment for procedure. Contact the office with any postmenopausal bleeding. Patient verbalizes understanding and agrees to the plan of care. She was given opportunity to ask questions and all questions were answered to the best of my ability. RTO in 1 year for annual obstetrics gyn physician exam. This note is constructed using voice recognition software. While every effort has been made to ensure accuracy, mechanical assembly technician errors may have been included. Coding Level of Care Code Est Pt Prev Care >65y(27848) Diagnoses Encounter for well woman exam with routine gynecological exam Z01.419 Vulvar lesion N90.89
[2024-04-15 14:02] VITALS: BP 118/88; BMI 31.5
== END 2024-04-15 14:33 | disposition home or self-care (01) ==
PROVIDERS: PCP Student in an Organized Health Care Education/Training Program; Visit Provider Advanced Practice Midwife
DX: Z01.419 Encounter for gynecological examination (general) (routine) without abnormal findings (principal); N90.89 Other specified noninflammatory disorders of vulva and perineum
CPT/HCPCS: 99397

== ENCOUNTER → 2024-04-15 13:50 | Outpatient (BNVA) | payer OTHER, SELFPAY | PROVIDERS: PCP Student in an Organized Health Care Education/Training Program; Visit Provider Advanced Practice Midwife ==

== ENCOUNTER 2024-04-21 14:08 | Outpatient (AMB) | payer OTHER, SELFPAY ==
[2024-04-21 14:10] VITALS: BP 158/90; PULSE 66; BMI 31.2
--- NOTE | 2024-04-21 14:10 | MHC.OFFVIS ---
Vital Signs 04/21/24 14:10 Height 5 ft 2 in Weight 170 lb 10.205 oz BMI 31.2 BP 158/90 H Blood Pressure Location Rt brachial Position Sitting Pulse 66 Pulse Source Pulse Oximeter Intake Visit Reasons: 6 mth f/up Property Coordinator Required: No Allergies nifedipine Allergy (Mild, Verified 04/21/24 14:12) Unknown Medication List - Last Reconciled 04/21/24 by Alana Cox, MONAE-C atorvastatin 20 mg PO DAILY cholecalciferol (vitamin D3) 25 mcg PO DAILY levothyroxine 75 mcg PO DAILY losartan 100 mg PO DAILY metoprolol tartrate 25 mg PO BID 30 days pantoprazole 20 mg PO BID spironolactone 12.5 mg (1/2 x 25 mg) PO DAILY 90 days HPI HPI 6 mth f/up: Details: Laura is a 69-year-old female past medical history of hypertension, hyperlipidemia, obesity who presents for follow-up. Today she reports that she has had 3 fainting episodes in the last few months. She states that 2 of the episodes occurred when she was in her house, after doing cleaning she felt her face was cold then developed nausea and then had fainting. When she woke up she had loose stools. Her 3rd episode occurred after being outside in the hot weather mowing her lawn. She went into the house, was sweaty, nauseous and again had fainting. Again she had loose stools following the event. She did not seek medical attention for any of these events. She has been taking all her medications as directed. She believes that she drinks enough liquids. She has been monitoring her blood pressure at home and it ranges between 102 to 123/62 to 83. She tells me her blood pressure was into the 80s following 1 of her fainting episodes. Her heart rate on her blood pressure monitor ranges in the 50s to 60s. She has not had lightheadedness, heart palpitations, shortness of breath, PND, orthopnea or edema. No chest discomfort at rest or with activity. Does not drive. [facility] Medical History GERD (gastroesophageal reflux disease) Type 2 diabetes mellitus Hypothyroid Elevated cholesterol High blood pressure Surgical History History of laparoscopic cholecystectomy (04/11/23) History of loop electrical excision procedure (LEEP) Hx of dilation and curettage H/O colonoscopy Family History Father Prostate cancer Sister History of breast cancer BRCA negative Family/Other Colon cancer Social History Household Members: Spouse Alcohol intake: never Patient Tobacco Use Status: Never used Tobacco Sexual orientation: Straight/Heterosexual Gender identity: Female Review of Systems Const Details: 3 fainting episodes All systems reviewed & are unremarkable except as noted in HPI and below ENT Denies dizziness Card Denies chest pain, Denies chest pain at rest, Denies chest pain with activity, Denies rapid heart rate, Denies pedal edema, Denies edema, Denies leg edema, Denies lightheadedness, Denies palpitations, Denies dyspnea, Denies dyspnea on exertion and Denies orthopnea Resp Denies cough, Denies dyspnea and Denies dyspnea on exertion GI Denies hematochezia and Denies change in stool character Musc Denies abnormal gait, Denies limited range of motion, Denies muscle cramps, Denies muscle weakness, Denies numbness, Denies radiating pain into limb, Denies stiffness and Denies tingling Neuro Denies abnormal gait, Denies dizziness, Denies numbness and Denies tingling Endo Denies palpitations Physical Exam Vital Signs: BMI result Body Mass Index 31.2 Const General: cooperative, healthy appearing, comfortable and no acute distress Orientation/consciousness: patient oriented x3 Neck Neck: Yes normal visual inspection Resp Effort & Inspection: normal respiratory effort Auscultation: clear to auscultation bilaterally, no crackles, no rales, no rhonchi and no wheezes Cardio Jugular venous distension: no JVD Rate: regular rate Rhythm: regular rhythm Heart sounds: S1 normal heart sound present, S2 normal heart sound present, no murmurs and no rubs Neuro General: patient oriented x3 Extrem General: Yes normal to inspection, No no pedal edema and No calf tenderness Psych Appearance: grossly normal Mental Status: mental status grossly normal Speech and movement: Normal speech and movement present Office Procedures EKG Details: Today, read by me, sinus bradycardia with PAC, rate 52, QTC 396 milliseconds, [place]. [id number], Complete Assessment & Plan Assessment & Plan (1) Syncope: Code(s): R55 - Syncope and collapse Category: Medical Plan: Report of 3 syncopal events as described above. Sounds like vasovagal events. EKG done today in the office is showing sinus bradycardia, rate 52, normal W[place], QRS and QTC intervals. Her blood pressure is mildly elevated today however home blood pressures tend to run lower. Following 1 of her syncopal event she reports having a systolic reading in the 80s. Instructed on increasing her fluid intake. Recognize the signs of presyncope and sit/lay down. Will reduce her metoprolol tartrate down to 25 mg b.i.d. from 50 mg b.i.d.. Will check a limited echocardiogram to reassess EF and wall motion. Will check a Holter monitor to assess for any significant bradycardia or arrhythmia. Cardiology follow-up in 6-8 weeks, sooner if needed. Emergency care if needed for recurrent syncope. No driving. (2) Essential hypertension: Code(s): I10 - Essential (primary) hypertension Category: Medical Plan: History of hypertension which has been better controlled on losartan, metoprolol and Aldactone. Labs done 09/04/2023 showed potassium 3.9, creatinine 0.86. Echocardiogram done 07/25/2023 showing EF 60-65%, normal LV thickness, normal RV, mildly elevated RV systolic pressure of 40 mmHg. A home sleep study was done on 10/24/2023 showing no sleep apnea. Home blood pressures running on the lower side. Will reduce her metoprolol dose as above. Continue Aldactone and losartan without change. (3) Abnormal echocardiogram findings without diagnosis: Code(s): R93.1 - Abnormal findings on diagnostic imaging of heart and coronary circulation Category: Medical Plan: Elevated RVSP noted on echo. Blood pressure now better controlled. Sleep study negative. Plan Time spent on chart review, documentation, interview and assessment Orders: Orders ECG 3 day holter monitor Today R55 - Syncope and collapse CA Echo Limited Today R55 - Syncope and collapse Medications: New metoprolol tartrate dose reduced 25 mg PO BID 30 days 60 tabs 5RF Discontinued metoprolol tartrate Discontinued Reason: Doctor's Order 50 mg PO BID 90 days 180 tabs 3RF Coding Level of Care Code Est Pt Level 4 (16783) Diagnoses Syncope R55 Essential hypertension I10 Abnormal echocardiogram findings without diagnosis R93.1 CPT Codes EKG - CPT: 44902-[id number], Complete ([id number]) Time Spent (min) 28
== END 2024-04-21 14:40 | disposition home or self-care (01) ==
PROVIDERS: PCP Student in an Organized Health Care Education/Training Program; Visit Provider Nurse Practitioner Family
DX: R55 Syncope and collapse (principal); I10 Essential (primary) hypertension; R93.1 Abnormal findings on diagnostic imaging of heart and coronary circulation
CPT/HCPCS: 93010; 99214

== ENCOUNTER → 2024-04-21 14:08 | Outpatient (BNVA) | payer OTHER, SELFPAY | PROVIDERS: PCP Student in an Organized Health Care Education/Training Program; Visit Provider Nurse Practitioner Family | DX: R55 Syncope and collapse (principal); I10 Essential (primary) hypertension; R93.1 Abnormal findings on diagnostic imaging of heart and coronary circulation; Z79.899 Other long term (current) drug therapy | CPT/HCPCS: 93005; 99212 ==

== ENCOUNTER → 2024-05-14 13:45 | Outpatient (REF) | payer OTHER, SELFPAY ==
--- NOTE | 2024-05-14 14:06 | HM_ITS ---
Conclusion: 1. Patient was monitored for total period of 2 days and 23 hours 2. Baseline was normal sinus rhythm with average heart of 58 beats per minute 3. No significant pauses noted but frequent sinus bradycardia noted with 53% of the time heart rate below 60 beats per minute 4. No significant arrhythmias noted 5. No patient reported events MTDD
--- NOTE | 2024-05-14 14:06 | CA_ITS ---
Transthoracic Echocardiogram Patient (Last, First, Middle): Laura Arellano E Gender: Female Date of : 1955 Age: 69 Procedure Date: 05/14/2024 Procedure Type: Transthoracic Echocardiogram Location: OP Height: 157.48 cm Weight: 77.57 kg BSA: 1.79 m2 Heart Rate: bpm BP: 150 / 88 mmHg Bar Machine Operator Production: TO Referring MD: Alana Cox OVERLOCK SEWING MACHINE OPERATORDharmesh Symptoms: R55 - Syncope and collapse Study Quality: Adequate w contrast ECG Rhythm: Sinus Conclusions: - The left ventricular systolic function is normal. The calculated ejection fraction is 62% by biplane method. Findings Procedure Information Contrast agent, definity, is being given per protocol without apparent complications. Left Ventricle Normal left ventricular cavity size. There is normal left ventricular wall thickness. The left ventricular systolic function is normal. The calculated ejection fraction is 62% by biplane method. There is no evidence of regional wall motion abnormalities. Venous The inferior vena cava is normal in size and collapses greater than 50% with inspiration. Prior Study Comparison No significant change compared to prior study dated: 07/25/2023. Measurements 2D Linear Measurements IVSd: 0.90 0.6-0.9/0.6-1.0 cm LVIDd: 4.37 3.9-5.3/4.2-5.9 cm LVIDd Index: 2.44 2.4-3.2/2.2-3.1 cm/m2 LVIDs: 2.70 2.0-3.6 cm LVPWd: 0.86 0.7-1.1 cm LV Mass: 153.24 67-162/88-224 g LV Mass Index: 85.61 43-95/49-115 g/m2 LVOT Diam: 1.80 3.0+(-)1.3 cm 2D Systolic Function EF 4C: 59.40 >55% EF 2C: 64.00 >55% EF BiP: 62.00 >55% LVOT LVOT Pk Jason: 1.29 LVOT Mn Jason: 0.73 LVOT VTI: 0.26 LVOT Pk Grad: 7.00 LVOT Mn Grad: 3.00 LVOT Diam: 1.80 LVOT Area: 2.54 Tricuspid Valve RA Press: 3.00 Updated in Other Vendor System with Status of Final Arian Hernandez MD electronically signed on 05/16/2024 1:56:59 PM with status of Final
== END ==
LOC: HO.CARD 13:45
PROVIDERS: PCP Student in an Organized Health Care Education/Training Program; Visit Provider Nurse Practitioner Family
DX: R55 Syncope and collapse (principal)
CPT/HCPCS: 93242; 93308; Q9957

== ENCOUNTER → 2024-05-14 14:06 | Outpatient (BNV) | payer OTHER, SELFPAY | PROVIDERS: PCP Student in an Organized Health Care Education/Training Program; Visit Provider Internal Medicine | DX: R00.1 Bradycardia, unspecified (principal) | CPT/HCPCS: 93244; 93308 ==

== ENCOUNTER 2024-05-22 14:10 | Outpatient (REF) | payer OTHER, SELFPAY | END 2024-05-22 14:11 | disposition home or self-care (01) | LOC: HO.LAB 14:10 | PROVIDERS: PCP Student in an Organized Health Care Education/Training Program; Visit Provider Advanced Practice Midwife | DX: N90.89 Other specified noninflammatory disorders of vulva and perineum (principal) | CPT/HCPCS: 56605; 88305; 88312 ==

== ENCOUNTER 2024-05-22 14:10 | Outpatient (AMB) | payer OTHER, SELFPAY ==
--- NOTE | 2024-05-22 14:12 | A.OFFVIS_ITS ---
Vital Signs 3 05/22/24 14:16 Height 5 ft 2 in Weight 171 lb BMI 31.3 BP 120/80 Intake Visit Reasons: skin biopsy Latex Caster: Latex Caster Present (Melly) Allergies nifedipine Allergy (Mild, Verified 05/22/24 14:12) Unknown Is last menstrual period known: Yes HPI Comments Details: Patient is here today for a vulvar skin biopsy on the right labia. [facility] Medical History GERD (gastroesophageal reflux disease) Type 2 diabetes mellitus Hypothyroid Elevated cholesterol High blood pressure Surgical History History of laparoscopic cholecystectomy (04/11/23) History of loop electrical excision procedure (LEEP) Hx of dilation and curettage H/O colonoscopy Family History Father Prostate cancer Sister History of breast cancer BRCA negative Family/Other Colon cancer Social History Household Members: Spouse Alcohol intake: never Patient Tobacco Use Status: Never used Tobacco Sexual orientation: Straight/Heterosexual Gender identity: Female Review of Systems Const All systems reviewed & are unremarkable except as noted in HPI and below Endo Reports no additional complaints Physical Exam Vital Signs: Last Vital Signs BP 120/80 05/22/24 14:16 BMI result Body Mass Index 31.3 Const General: cooperative, healthy appearing and no acute distress Female genitals images: 2 1. Right labial lesion Psych Appearance: well kempt Attitude: cooperative Thought process: Normal thought process present Office Procedures Skin Biopsy Details: Vulvar Biopsy: Preop Diagnosis: Vulvar biopsy. The patient was consented for a vulvar skin biopsy procedure today. The purpose of the procedure is to rule out any skin abnormalities in the area of concern(s) including: PAUL, or skin conditions such as lichen sclerosis. All the risks and benefits were reviewed. The risk of the procedure including: pain, bleeding, swelling, bruising, injury to nerves blood supply, and surrounding tissue, scarring, and permanent skin discoloration. All of her questions and concerns were addressed to the best of my ability and shared decision making. She is agreeable to the plan of care. The patient was placed in the dosal lithotomy position. Using aseptic technique for the procedure the biopsy area was cleansed and prepped with Betadine solution. The skin area was anesthetized with Lidocaine 2% using a 3cc syringe and a 25g needle, 1cc was injected perpendicular into the dermis at the biopsy site until elevation was noted. A Shave biopsy technique was utilized. The bleeding site was minimal and controlled by direct pressure. Vaseline ointment and guaze dressing was applied to the biopsy site. The patient tolerated the procedure well and left the department in good condition. Post biopsies skin care: Keep the area clean and dry. Apply Vaseline to the area as directed for the 1st week. Wear loose clothing and avoid intimacy until well healed. Report any signs of infection: Fever flu-like symptom, increased pain, redness, any foul odor or pus discharge. Return to the office in 1-2 weeks for biopsy results. Call sooner if any concerns. All of her questions and concerns were addressed to the best of my ability and shared decision making. She is agreeable to the plan of care. This note is constructed using voice recognition software. While every effort has been made to ensure accuracy, blower blast furnace errors may have been included. Skin biopsy performed by: Kimmy Love Informed consent given: Yes Consent signed: Yes Type of Biopsy: shave Hemostasis: pressure Wound closure: secondary intention Patient tolerated procedure: well Complications: No Assessment & Plan Assessment & Plan (1) Vulvar lesion: Code(s): N90.89 - Other specified noninflammatory disorders of vulva and perineum Category: Medical Plan See procedure notes. Orders: Orders 2 Surgical Today N90.89 - Other specified noninflammatory disorders of vulva and perineum Coding Level of Care Code Procedure Only Diagnoses Vulvar lesion N90.89
[2024-05-22 14:16] VITALS: BP 120/80; BMI 31.3
== END 2024-05-22 15:50 | disposition home or self-care (01) ==
LOC: HO.HWS 14:10
PROVIDERS: PCP Student in an Organized Health Care Education/Training Program; Visit Provider Advanced Practice Midwife
DX: N90.89 Other specified noninflammatory disorders of vulva and perineum (principal)
CPT/HCPCS: 56605

== ENCOUNTER 2024-05-28 13:10 | Outpatient (AMB) | payer OTHER, SELFPAY ==
--- NOTE | 2024-05-28 13:10 | A.OFFVIS_ITS ---
Intake Visit Reasons: Biopsy results Allergies nifedipine Allergy (Mild, Verified 05/22/24 14:12) Unknown HPI Comments Details: Tele [place] visit 13:11-13:14. I spent 3 minutes speaking with the patient on the phone plus an additional 5 minutes reviewing the chart and 5 minutes updating the medical record for a total of 13 minutes. Patient unable to accept a video with doximity on her phone, landline utilized. Patient presents via phone to discuss: Vulvar biopsy results. She reports she is healing well and has no pain, discharge, or signs of infection, she is applying Vaseline topically. [facility] Medical History GERD (gastroesophageal reflux disease) Type 2 diabetes mellitus Hypothyroid Elevated cholesterol High blood pressure Surgical History History of laparoscopic cholecystectomy (04/11/23) History of loop electrical excision procedure (LEEP) Hx of dilation and curettage H/O colonoscopy Family History Father Prostate cancer Sister History of breast cancer BRCA negative Family/Other Colon cancer Social History Household Members: Spouse Alcohol intake: never Patient Tobacco Use Status: Never used Tobacco Sexual orientation: Straight/Heterosexual Gender identity: Female Results Reviewed Results Reviewed: Name: Laura Arellano Age/Sex: 69/F Attending: Kimmy Love CNM : 1955 Submitted by: Kimmy Love CNM Copies to: Babrara Breen MD MR #: [id number] Status: DEP REF Collected: 05/22/24 Location: .LAB Received: 05/25/24 Diagnosis Vulva, right, biopsy: Seborrheic keratosis; no atypia or fungi identified. Clinical History Vulvar lesion Microscopic Description Microscopic sections reviewed. No fungi are seen, supported by PAS stain. Material Received Right vulva biopsy Gross Description Received in formalin labeled ?right vulva biopsy? is a fragment of red-brown soft tissue measuring 0.6 x 0.4 x 0.3 cm in greatest dimension which is bisected, wrapped in lens paper and entirely submitted for microscopic examination, 2 pieces in cassette A. [facility] Special studies ordered and performed: PAS stain Copies To Kimmy Love CNM [facility] [place] [facility] [address] [place] [address] Barbara Breen MD [address] [place] [address] NOTE: Unless otherwise stated, all tissue is formalin-fixed and paraffin- embedded. Some or all of the immunohistochemical tests reported herein may have been developed and their performance characteristics determined by [facility]. They have not been cleared or approved by the U.S. Food and Drug Administration (FDA). However, the FDA has determined that such clearance or approval is not necessary. This laboratory is certified under the Clinical Laboratory Improvement Amendments of 1988 (CLIA) as qualified to perform high complexity clinical laboratory testing. Electronically Signed By: Thien Mckay MD 05/26/24 [id number] Patient: Laura Arellano Age/Sex: 69/F MR#: [id number] Page 1 of 1 Assessment & Plan Assessment & Plan (1) Encounter to discuss test results: Code(s): Z71.2 - Person consulting for explanation of examination or test findings Plan Discussed: Vulvar skin biopsy-seborrheic keratosis, no atypia. Patient has no further questions or concerns, advised to follow up if there is any concerns with healing. Reviewed that the skin color will be different from the surrounding tissue as it is healing. Annual exam scheduled 03/2025. All of her questions and concerns were addressed to the best of my ability and shared decision making. She is agreeable to the plan of care. This note is constructed using voice recognition software. While every effort has been made to ensure accuracy, corrections counselor errors may have been included. Coding Level of Care Code Tele Est Pt Level 2 (12190) Diagnoses Encounter to discuss test results Z71.2
== END 2024-05-28 15:50 | disposition home or self-care (01) ==
LOC: HO.HWS 13:10
PROVIDERS: PCP Student in an Organized Health Care Education/Training Program; Visit Provider Advanced Practice Midwife
DX: Z71.2 Person consulting for explanation of examination or test findings (principal)
CPT/HCPCS: 99212

== ENCOUNTER → 2024-05-28 13:10 | Outpatient (BNVA) | payer OTHER, SELFPAY | PROVIDERS: PCP Student in an Organized Health Care Education/Training Program; Visit Provider Advanced Practice Midwife ==

== ENCOUNTER 2024-12-11 09:35 | Outpatient (AMB) | payer OTHER, MEDICAID, SELFPAY ==
[2024-12-11 09:47] VITALS: BP 168/62; PULSE 62; BMI 32.6
--- NOTE | 2024-12-11 09:47 | MHC.OFFVIS ---
Vital Signs 12/11/24 09:47 Height 5 ft 2 in Weight 178 lb 2.136 oz BMI 32.6 BP 168/62 H Blood Pressure Location Lt brachial Position Sitting Pulse 62 Pulse Source Pulse Oximeter Intake Visit Reasons: Abnormal echocardiogram findings without diagnosis Help Desk Engineer Required: No Accompanied by: Self / Same As Patient Allergies nifedipine Allergy (Mild, Verified 05/22/24 14:12) Unknown Medication List - Last Reconciled 12/11/24 by Alana Cox NP-C atorvastatin 20 mg PO DAILY blood pressure monitor As directed Take BP twice weekly and call if SBP> 140s cholecalciferol (vitamin D3) 25 mcg PO DAILY levothyroxine 75 mcg PO DAILY losartan 100 mg PO DAILY metoprolol tartrate 25 mg PO BID pantoprazole 20 mg PO BID spironolactone 12.5 mg (1/2 x 25 mg) PO DAILY 90 days HPI HPI Abnormal echocardiogram findings without diagnosis: Details: Laura is a 69-year-old female past medical history of hypertension, hyperlipidemia, obesity, syncope who presents for follow-up. Today she reports that she has not had any recurrent syncopal events her last visit in March. Prior to that time she had experienced 3 fainting episodes in the previous few months. She states that 2 of the episodes occurred when she was in her house, after doing cleaning she felt her face was cold then developed nausea and then had fainting. When she woke up she had loose stools. Her 3rd episode occurred after being outside in the hot weather mowing her lawn. She went into the house, was sweaty, nauseous and again had fainting. Again she had loose stools following the event. She did not seek medical attention for any of these events. She currently denies any issues with chest pains, shortness of breath, heart palpitations. Home blood pressures typically run between 120 and 150 systolic. Taking meds as directed. She is requesting a script for a new home blood pressure cuff. [facility] Medical History GERD (gastroesophageal reflux disease) Type 2 diabetes mellitus Hypothyroid Elevated cholesterol High blood pressure Surgical History History of laparoscopic cholecystectomy (04/11/23) History of loop electrical excision procedure (LEEP) Hx of dilation and curettage H/O colonoscopy Family History Father Prostate cancer Sister History of breast cancer BRCA negative Family/Other Colon cancer Social History Household Members: Spouse Alcohol intake: current Alcohol intake frequency: holidays/special occasions only Patient Tobacco Use Status: Never used Tobacco Sexual orientation: Straight/Heterosexual Gender identity: Female Review of Systems Const All systems reviewed & are unremarkable except as noted in HPI and below Denies chills, Denies fatigue, Denies fever(s), Denies weight gain and Denies weight loss ENT Denies dizziness Card Denies chest pain, Denies leg edema, Denies lightheadedness, Denies palpitations, Denies dyspnea on exertion, Denies orthopnea and Denies other Resp Denies cough and Denies dyspnea on exertion GI Denies hematochezia and Denies change in stool character Musc Denies abnormal gait, Denies muscle weakness, Denies numbness, Denies radiating pain into limb and Denies tingling Neuro Denies abnormal gait, Denies dizziness, Denies numbness and Denies tingling Endo Denies fatigue and Denies palpitations Physical Exam Vital Signs: Last Vital Signs Pulse 62 12/11/24 09:47 BP 168/62 H 12/11/24 09:47 BMI result Body Mass Index 32.6 Const General: cooperative, healthy appearing, comfortable and no acute distress Orientation/consciousness: patient oriented x3 Neck Neck: Yes normal visual inspection Resp Effort & Inspection: normal respiratory effort Auscultation: clear to auscultation bilaterally, no rales, no rhonchi and no wheezes Cardio Rate: regular rate Rhythm: regular rhythm Heart sounds: S1 normal heart sound present, S2 normal heart sound present, no gallops, no murmurs and no rubs Neuro General: patient oriented x3 Extrem General: Yes normal to inspection, No no pedal edema and No calf tenderness Psych Appearance: grossly normal Mental Status: mental status grossly normal Speech and movement: Normal speech and movement present Assessment & Plan Assessment & Plan (1) Syncope: Code(s): R55 - Syncope and collapse Category: Medical Plan: Report of 3 syncopal events in 2024 as described above. Sounds like vasovagal events. EKG done last visit showed sinus bradycardia, rate 52, normal AR, QRS and QTC intervals. An echocardiogram was done on 05/14/2024 with EF 62%, no wall motion abnormalities and no significant valve abnormalities. Holter monitor was done on 05/14/2024 for 3 days showing sinus rhythm with average heart rate 58, 53% of the time heart rate less than 60, no significant arrhythmia. Test results reviewed with her in detail. She has not had recurrent syncopal events since her visit in March. If she does have recurrent syncope then will order a tilt-table test for further evaluation. Reviewed the need for increasing her fluid intake, Recognize the signs of presyncope and sit/lay down. Emergency care if needed for recurrent syncope. No driving. Cardiology follow-up in 6 months, sooner if needed. (2) Essential hypertension: Code(s): I10 - Essential (primary) hypertension Category: Medical Plan: History of hypertension which has been better controlled on losartan, metoprolol and Aldactone. Labs are followed by her PCP. A home sleep study was done on 10/24/2023 showing no sleep apnea. Home blood pressures reported as normal range to mildly elevated. Blood pressure elevated in the office today. She will continue to monitor blood pressure at home and call us if systolic is running greater than 140 consistently. No med changes made. (3) Abnormal echocardiogram findings without diagnosis: Code(s): R93.1 - Abnormal findings on diagnostic imaging of heart and coronary circulation Category: Medical Plan: Elevated RVSP noted on echo. Sleep study negative. No shortness of breath. Plan Time spent on chart review, documentation, interview and assessment Medications: New blood pressure monitor As directed Take BP twice weekly and call if SBP> 140s 1 ea 0RF hypertension Coding Level of Care Code Est Pt Level 4 (65403) Complex EM visit Add On G2211 Diagnoses Syncope R55 Essential hypertension I10 Abnormal echocardiogram findings without diagnosis R93.1 Time Spent (min) 30
--- OUTSIDE RECORDS SUMMARY | 2024-12-11 10:32 | XMS_ITS | Encounter Summary ---
Author Organization [facility] Address [address] [place] [address] Care Team Providers Care Medical Case Manager Name Role Phone Dede Child ESTELA Primary Care Provider [phone] Barbara Breen MD Primary Care Pro vider Reason for Visit * Reason Onset Date Comments Med Refill 10/26/2022 Encounter Details Date Type Department Care Team (Late st Contact Info) Description 10/26/2022 Refill [facility] [address] [place] [address] Milton Martin MD Type 2 diabetes mellitus with hyperosmolarity without coma, without long-term current use of insulin ([facility]) (Primary Dx); Primary hypertension; Hypothyroidism, unspecified type Social History Tobacco Use Types Packs/Day Years Used Date Smoking Tobacco: Never Assessed Comments Unknown Sex and Gender Information Value Date Recorded Sex Assigned at Female 07/30/2022 10:20 AM EDT Legal Sex Female 10:20 AM EDT Gender Identity Female 07/30/2022 10:20 AM EDT Sexual Orientation Straight 07/30/2022 10 :20 AM EDT documented as of this encounter Miscellaneous Notes * Telephone Encounter - Nicko Silveira - 10/26/2022 3:09 PM EST Tc from pt requesting med refill Levothyroxine 75 mcg, hydrochlorothaiazide 25 mg, freestyle lite strips, freestyle lancets 28 g, losartan 100 mg documented in this encounter Plan of Treatment Upcoming Encounters Date Type Department Care Team (Late st Contact Info) Description 12/15/2024 11:00 AM EDT Office Visit [facility] [address] [place] [address] documented as of this encounter Visit Diagnoses Diagnosis Type 2 diabetes mellitus with hyperosmolarity without coma, without long-term current use of insulin ([facility])- Primary Primary hypertension Unspecified essential hypertension Hypothyroidism, unspecified type documented in this encounter Care Teams Medical Case Manager Relationship Specialty Start Date End Date Dede Child FNP [address] [place] [address] PCP - General Family Medicine 10/26/22 01/14/23 Barbara Breen MD [address] [place] [address] PCP - General Internal Medicine 01/15/23 documented as of this encounter
--- OUTSIDE RECORDS SUMMARY | 2024-12-11 10:32 | XMS_ITS | Clinical Summary ---
Author Organization [employer] Address [address] [place] [address] Care Team Providers Care Trader Name Role Phone Barbara Breen MD Primary Care Pro vider Allergies Active Allergy Reactions Criticality Noted Date Comments Nifedipine Rash Low 08/23/2021 Medications FreeStyle lancetsIndications :Type 2 diabetes mellitus with hyperosmolarity without coma, without long-term current use of insulin ([facility]) CHECK BY FINGERSTICK ROUTE 3 TIMES EVERY DAY 100 each 023 Active glucose blood (OneTouch Verio) test stripIndications:T ype 2 diabetes mellitus with hyperosmolarity without coma, without long-term current use of insulin ([facility]) Test blood sugar 3 times a day 100 strip 11 023 Active Blood Glucose Monitoring Suppl (OneTouch Verio Flex System) w/Device kitIndications:Typ e 2 diabetes mellitus with hyperosmolarity without coma, without long-term current use of insulin ([facility]) Test blood sugars 3 times a day 1 kit 023 Active OneTouch Delica Lancets 33G miscIndications:Ty pe 2 diabetes mellitus with hyperosmolarity without coma, without long-term current use of insulin ([facility]) Teas blood sugars 3 times a day 100 each 11 023 Active loratadine (Claritin) 10 MG tablet Take 1 tablet (10 mg) by mouth in the morning. 30 tablet 2 023 Active pantoprazole (ProtoNix) 20 MG EC tablet Take 1 tablet (20 mg) by mouth before breakfast. Do not crush, chew, or split. 90 tablet 023 Active metoprolol tartrate (Lopressor) 50 MG tablet Take 1 tablet (50 mg) by mouth 2 times daily. 180 tablet 023 Active hydrOXYzine HCl (Atarax) 10 MG tablet Take 1 tablet (10 mg) by mouth every 12 (twelve) hours if needed for itching or anxiety for up to 10 days. 30 tablet 023 Active cholecalciferol (Vitamin D3) 25 MCG (1000 UT) tablet TAKE 1 TABLET (25 MCG) BY MOUTH IN THE MORNING 90 tablet 1 024 Active levothyroxine (Synthroid, Levoxyl) 75 MCG tabletIndications: Hypothyroidism, unspecified type TAKE 1 TABLET BY MOUTH EVERY DAY 90 tablet 025 Active atorvastatin (Lipitor) 20 MG tabletIndications: Other hyperlipidemia TAKE 1 TABLET BY MOUTH EVERY DAY IN THE EVENING 90 tablet 025 Active losartan (Cozaar) 100 MG tabletIndications: Primary hypertension TAKE 1 TABLET BT MOUTH EVERY DAY 90 tablet 025 Active losartan (Cozaar) 100 MG tabletIndications: Primary hypertension TAKE 1 TABLET BT MOUTH EVERY DAY 90 tablet 1 023 2024 Discontinued(R eorder (will not trigger notification to Pharmacy)) atorvastatin (Lipitor) 20 MG tabletIndications: Other hyperlipidemia TAKE 1 TABLET BY MOUTH EVERY DAY IN THE EVENING 90 tablet 024 2024 Discontinued Active Problems Problem Noted Date Diagnosed Date Hair loss 06/30/2023 Memory loss 06/30/2023 Elevated bilirubin 03/05/2023 Assessment & Plan (03/28/2023 5:56 PM EDT): -bilirubin total is 1.7<--- 2 ,indirect 1.6, LDH and haptoglobin are wnl, PTH ,ionisex ca wnl ,,02/2021 SPEP and UPEP that were normal in [facility] -Abd US 02/2023: generalized increase in hepatic echotexture, consistent with fatty infiltration or hepatocellular disease. . No focal hepatic mass or intrahepatic biliary dilatation is seen. An increased gallbladder polyp or adjacent polyps are noted, with maximal aggregate diameter of 1.1 cm. General Surgery evaluation and management is recommended. The 1.1 cm benign, simple right renal cyst is seen, for which no imaging follow-up is recommended. -likely Gilbert's dx? --had hx of elevated total bili before -never > 4 -so no indication at this time for further testing Assessment & Plan (03/05/2023 3:21 PM EDT): -bilirubin total is1.7<--- 2 ,indirect 1.6, LDH and haptoglobin are wnl, PTH ,ionisex ca wnl ,,02/2021 SPEP and UPEP that were normal in [facility] -Abd US 02/2023: generalized increase in hepatic echotexture, consistent with fatty infiltration or hepatocellular disease. . No focal hepatic mass or intrahepatic biliary dilatation is seen. An increased gallbladder polyp or adjacent polyps are noted, with maximal aggregate diameter of 1.1 cm. General Surgery evaluation and management is recommended. The 1.1 cm benign, simple right renal cyst is seen, for which no imaging follow-up is recommended. -likely Gilbert's dx? --had hx of elevated total bili before -never > 4 -so no indication at this time for further testing [facility] maintenance 02/05/2023 Assessment & Plan (03/28/2023 5:56 PM EDT): -menopause : 56y of age -pap smear:2020 neg per pt--pt f w CRT at [facility]-has apt x 04/09/23 -MM: 07/2022 : birads 2 to f annually /reports her sister w breast ca had BRCA neg test -will refer at next visit -colonoscopy: > 10 y ago, normal per pt -referred to GI already -pd to get apt -DEXA scan: 06/2022: Normal --would repeat in 3 years -vaccines: s/p tdap in 2013, hep B immune, p20 06/2022, ,covid 19 vaccine x3 and booster w Bivalent already x1,Zoster x1 in 2017 w zostavax--advised to get vaccine at vaccine clinic to start series of shingrix if not done until next visit will refer to px ----- -low vit D -started daily vit D -not adding ca w normal but borderline elev ca Assessment & Plan (03/05/2023 3:23 PM EDT): -menopause : 56y of age -pap smear:2020 neg per pt--pt f w CRT at [facility]-pt states will schedule apt w them and I will try to get last pap smear report-requested already to PA-Not tonny to get -MM: 07/2022 : birads 2 to f annually /reports her sister w breast ca had BRCA neg test -colonoscopy: > 10 y ago, normal per pt -referred to GI already -pd to get apt -DEXA scan: 06/2022: Normal --would repeat in 3 years -vaccines: s/p tdap in 2013, hep B immune, p20 06/2022, ,covid 19 vaccine x3 and booster w Bivalent already x1,Zoster x1 in 2016 w zostavax--today to get vaccine at vaccine clinic to start series of shingrix -low vit D -started daily vit D -not adding ca w normal but borderline elev ca Assessment & Plan (02/05/2023 12:50 PM EDT): -menopause : 56y of age -pap smear:2020 neg per pt--pt f w CRT at [facility]-pt states will schedule apt w them and I will try to get last pap smear report-requested already to PA -MM: 07/2022 : birads 2 to f annually -colonoscopy: > 10 y ago, normal per pt -referred today to GI -DEXA scan: 06/2022: Normal --would repeat in 3 years -vaccines: s/p tdap in 2013, p20 06/2022, ,covid 19 vaccine x3 and booster w Bivalent already x1,Zoster x1 in 2017 w zostavax--today to get vaccine at to start series of shingrix ---2nd dose in 2 to 6 months -pt will ask her sister about BRCA- if tested in the past -sister w hx of breast ca-if ot done may consider doing BRCA to my pt at future visit if sister had ca before 50 y of age -labs x annual exam -pt will RTC in fasting x labs -pt agreed to have STI testing including HIV to have for baseline Obesity (BMI 30.0-34.9) 02/05/2023 Assessment & Plan (03/28/2023 5:54 PM EDT): Advised pt to improve diet and exercise,discussed healthy life style -discussed taste tester referral but wants t hold x now -Will discuss w pt about consider low dose trulicity at her next apt x DM and obesity Assessment & Plan (03/05/2023 3:17 PM EDT): Advised pt to improve diet and exercise,discussed healthy life style -discussed taste tester referral but wants t hold x now Assessment & Plan (02/05/2023 12:35 PM EDT): Advised pt to improve diet and exercise,discussed healthy life style -discussed taste tester referral but wants t hold x now Acquired hypothyroidism 02/04/2023 Assessment & Plan (03/28/2023 5:53 PM EDT): 01/2023 TSH ,T4 wnl -continue her levothyroxine 75 mg daily -states to be complaint -will repeat TFT in 6 mo aprox 08/2023 Assessment & Plan (03/05/2023 3:17 PM EDT): 01/2023 TSH ,T4 wnl -continue her levothyroxine 75 mg daily -states to be complaint -will repeat TFT in 6 mo aprox 08/2023 Assessment & Plan (02/05/2023 12:34 PM EDT): -continue her levothyroxine 75 mg daily -states to be complaint -advised to RTC w/o taking med in am of labs to check labs -checked pt's bottles and has refills until next visit Type 2 diabetes mellitus without complication Assessment & Plan (03/28/2023 5:53 PM EDT): Mentioned hx of DM -controlled w meds 01/2023 Hb1AC Is 5.9, LDL 64, Microalb neg Not tolerated metformin before -life style changes advised -ophthalmology -last 3 y ago-normal per pt-referred already -pick up operator -will refer at next visit if uncontrol result -DM labs in 6 mo -aprox 08/2023 Assessment & Plan (03/05/2023 3:16 PM EDT): Mentioned hx of DM -controlled w meds 01/2023 Hb1AC Is 5.9, LDL 64, Microalb neg Not tolerated metformin before -life style changes advised -ophthalmology -lat 3 y ago-normal per pt-referred already -pick up operator -will refer at next visit if uncontrol result -DM labs in 6 mo Assessment & Plan (02/05/2023 12:33 PM EDT): Mentioned hx of DM -controlled w meds -will do fasting labs -ophthalmology -lat 3 y ago-normal per pt-referred today -pick up operator -will refer at next visit if uncontrol result Heartburn 02/03/2018 Assessment & Plan (03/28/2023 5:52 PM EDT): Reports sporadic maybe once a month pantoprazole 40 mg daily x GERD symptoms -advised pt about diet changes -at next apt when needs med refill will send pantoprazole 20 mg to see if enough -explained to avoid chronic use Assessment & Plan (03/05/2023 3:12 PM EDT): Reports sporadic maybe once a month pantoprazole 40 mg daily x GERD symptoms -advised pt about diet changes -at next apt when needs med refill will send pantoprazole 20 mg to see if enough -explained to avoid chronic use Assessment & Plan (02/05/2023 12:32 PM EDT): Reports sporadic maybe once a month pantoprazole 40 mg daily x GERD symptoms -advised pt about diet changes -at next apt when needs med refill will send pantoprazole 20 mg to see if enough -explained to avoid chronic use Essential hypertension 01/07/2017 Assessment & Plan (03/28/2023 5:51 PM EDT): BP today elevated here BUT all of her BP readings at home are normal -reviewed today in her BP machine -baseline EKG 01/2023 is normal -hx of SE w nifedipine -rash,amlodipine-LE edema,lisinopril -BOSE 01/2023 Microalb neg STOPPED HDCTZ at previous visit x noted ongoing low K+ -continue recently started metoprolol 25 mg BID --if tolerating and BP controlled will change later to ER -continue her losartan 100 mg daily -referred today to cardiology x 24 h BP monitoring and to clarify significant elevated Bps in office would be reactive but is too ifrah from normal at home -advised to bring home BP readings 3 times a week at next apt and w f here in 3 to 4 weeks to monitor BP --if not able to controlled BP can consider increase BB if tolerated or to switch back to her combination losartan/HDCTZ and start K tab 3 times a week if actual having elevated BP with cards eval -opthalmo -last seen 3 y ago -normal per pt ---referred already -[place] Checked already in list x apt - will repeat chem then to monitor K + ---I will call pt w result Assessment & Plan (03/05/2023 3:22 PM EDT): BP today elevated but states just prior coming here her BP was normal at home 115/80 -baseline EKG 01/2023 is normal -hx of SE w nifedipine -rash,amlodipine-LE edema,lisinopril -BOSE Rechecked manually BP here at previous visit with bigger cuff and BP was 135/80 similar readings with her own BP machine brought before -home BP readings are all wnl bw 110 to 120s /70 to 80s per pt 01/2023 Microalb neg -noted low K + repeated 3.3<--3.5--3.4--mag wnl ---will stop x now HDCTZ and eval chem w/o it -instead will start metoprolol 25 mg BID --if tolerating and BP controlled will change later to ER -continue her losartan 100 mg daily -advised to bring home BP readings 3 times a week at next apt and w f here in 3 to 4 weeks to monitor BP --if not able to controlled BP can consider increase BB if tolerated or to switch back to her combination losartan/HDCTZ and start K tab 3 times a week? -opthalmo -last seen 3 y ago -normal per pt ---referred already -[place] White Checked already in list x apt -f BP at next apt in 3 weeks and will repeat chem then to monitor K + Assessment & Plan (02/05/2023 12:40 PM EDT): -baseline EKG today is normal -hx of SE w nifedipine -rash,amlodipine-LE edema,lisinopril -BOSE Rechecked manually BP here today with bigger cuff and BP was 135/80 similar readings with her own BP machine brought today -home BP readings are all wnl bw 110 to 120s /70 to 80s -px today combination pill of her losartan and HDCTZ -taking x now as -advised to bring home BP readings 3 times a week at next apt -microalb -opthalmo -last seen 3 y ago -normal per pt ---referred today Resolved Problems Problem Noted Date Diagnosed Date Resolved Date Diabetes due to undrl condit ion w oth diabetic neuro comp 03/28/2023 03/28/2023 Encounters Date Type Department Care Team Description 11/18/2024 Refill [facility] [address] [place] [address] Barbara Breen MD Primary hypertension 11/13/2024 Refill [facility] [address] [place] [address] Barbara Breen MD Other hyperlipidemia 10/16/2024 Refill [facility] [address] [place] [address] Barbara Breen MD Hypothyroidism, unspecified type from Last 3 Months Immunizations Name Administration Dates Next Due Influenza High-dose Quadriva lent Preservative Free 06/28/2023,07/04/2022 Influenza injectable quadriv alent IIV4 with preservative 07/02/2018,07/02/2017 Influenza injectable quadriv alent preservative free 06/30/2021,06/22/2020,07/28/2019,07/05 Influenza, High Dose Seasona l, Preservative Free 06/25/2024 Influenza, IIV3, injectable 06/09/2014 Influenza, Split (incl. cally fied surface antigen) 09/02/2013,08/20/2012 Pfizer Covid-19 Vaccine 12+ 06/25/2024 Pneumococcal Conjugate PCV 20 07/13/2022 Pneumococcal Polysaccharide PPSV23 10/22/2019 Tdap 11/25/2013 Zoster, Recombinant 05/07/2023,03/05/2023 Zoster, live 07/25/2017 Family History Medical History Relation Name Comments hypothyroidism,prostate ca Father DM2,hypothyroidism Mother Breast cancer Sister Relation Name Status Comments Father Mother Sister Social History Tobacco Use Types Packs/Day Years Used Date Smoking Tobacco: Never Passive Smoke Exposure: Never Smokeless Tobacco: Never Tobacco Cessation:Counseling Given: Not Answered Alcohol Use Standard Drinks/Week Comments Yes 0 (1 standard drink = 0.6 oz pur e alcohol) social Depression Answer Date Recorded Patient Health Questionnaire-9 Score 1 02/05/2023 Housing Stability Answer Date Recorded What is your housing situation today? I have elie nancy 07/22/[address] you li ve. Do you have problems with any of the following? None of the above 07/22/2023 Food Insecurity Answer Date Recorded Within the past 12 months, y ou worried that your food would run out before you got money to buy more: Never True 07/22/2023 Within the past 12 months,th e food you bought just didn't last and you didn't have enough money to get more: Never True Transportation Answer Date Recorded In the past 12 months, has l ack of transportation kept you from medical appts, meetings, work or from getting things needed for daily living? No 07/22/2023 Utilities Answer Date Recorded In the past 12 months, has t he electric, gas, oil or water company threatened to shut off services in your home? No 07/22/2023 Depression Answer Date Recorded Patient Health Questionnaire-2 Score 0 02/05/2023 Comments Unknown Sex and Gender Information Value Date Recorded Sex Assigned at Female 07/30/2022 10:20 AM EDT Legal Sex Female 10:20 AM EDT Gender Identity Female 07/30/2022 10:20 AM EDT Sexual Orientation Straight 07/30/2022 10 :20 AM EDT Last Filed Vital Signs Vital Sign Reading Time Taken Comments Blood Pressure 205/101 07/31/2023 3:37 PM EDT Pulse 68 07/31/2023 3:36 PM EDT Temperature 37.1 ??C (98.7 ??F) 02/05/2023 10:07 AM E DT Respiratory Rate 20 07/31/2023 3:36 PM EDT Oxygen Saturation 97% 07/31/2023 3:36 PM EDT Inhaled Oxygen Concentration - - Weight 72.3 kg (159 lb 6.4 oz) 07/31/2023 3:36 P M EDT Height 154.9 cm (5' 1 ) 07/31/2023 3:36 PM EDT Body Mass Index 30.12 07/31/2023 3:36 PM EDT Plan of Treatment Upcoming Encounters Date Type Department Care Team (Late st Contact Info) Description 12/15/2024 11:00 AM EDT Office Visit [facility] [address] [place] [phone] Health Maintenance Due Date Last Done Comments CT Colonography 1955 Colonoscopy 1955 Colorectal Cancer Screening 1955 FIT DNA/Cologuard 1955 FIT 1955 FOBT 1955 Sigmoidoscopy 1955 Alcohol/Substance Use Screening 1969 DTaP/Tdap/Td Vaccines (2 - Td or Tdap) 11/25/2023 11/25/2013 SDOH Screening 01/30/2024 01/29/2023 Depression Screening 02/06/2024 02/05/2023, 02/06/20 23 Tobacco Screening 07/31/2024 07/31/2023 Mammogram 08/19/2025 08/19/2023, 07/31, 07/26/2022, Additional history exists Lipid Panel 07/23/2028 07/23/2023, 01/28, 03/23/2021 RSV Patients and Patients Aged 60 years or older (1 - 1-dose 75+ series) 2032 Pneumococcal Vaccine: 50+ Years Completed 07/13/2022, 10/22/2019 Hepatitis C Screening Completed 02/07/2023, 020 Cervical Cancer Screening Discontinued Pap Smear Discontinued 04/09/2023 Zoster Vaccines Completed 05/07/2023, 0602/2023, 07/25/2017 COVID-19 Vaccine Completed 06/25/2024, 01/2022, 09/19/2021, Additional history exists Influenza Vaccine Completed 06/25/2024, , 07/04/2022, Additional history exists HIB Vaccines Aged Out No longer eligi ble based on patient's age to complete this topic HPV Vaccines Aged Out No longer eligi ble based on patient's age to complete this topic HPV/Cotest Discontinued Hepatitis A Vaccines Aged Out No long er eligible based on patient's age to complete this topic Hepatitis B Vaccines Aged Out No long er eligible based on patient's age to complete this topic IPV Vaccines Aged Out No longer eligi ble based on patient's age to complete this topic Meningococcal Vaccine Aged Out No david yaya eligible based on patient's age to complete this topic RSV under 20 months Aged Out No longe r eligible based on patient's age to complete this topic Rotavirus Vaccines Aged Out No longer eligible based on patient's age to complete this topic Procedures Procedure Name Priority Date/Time Associated Diagnosis Comments BI MAMMOGRAM SCREENING TOMOSYNTHESIS BILATERAL Routine 08/19/2023 2:46 PM EST LIPID PANEL, STANDARD Routine 07/23/2023 9:33 AM EDT Type 2 diabetes mellitus without complication, without long-term current use of insulin (CMS/HCC) PAP SMEAR Routine 04/09/2023 1:25 PM EDT HEPATITIS C AB W/REFL TO HCV RNA, QN, PCR Routine 02/07/2023 8:36 AM EDT Health care maintenance from Last 3 Months or Most Recently Relevant to Health Maintenance Results * BI Mammogram Screening Tomosynthesis Bilateral (08/19/2023 2:46 PM EST) Anatomical Region Laterality Modality Breast Bilateral Mammography 08/19/2023 2:46 PM EST Narrative 09/05/2023 7:34 AM EST ? [facility] ? [address] ?[place] [address] ? Mammography Report ? Signed ? Patient: Arellano,Laura E ?MR#: [id number] ?? 7 ? : 1955 ?Acct:[id number] ? Age/Sex: 68 / F ?ADM Date: 08/19/23 ? Loc: HO.MAMMO ? Attending Dr: Milton Martin MD ? Ordering Physician: Barbara Breen MD ?Re ?? sults: 1Negative ? Date of Service: 08/19/23 ?Follow Up: 1 Year From Orig ?? inal Mammogram ? Procedure(s): MM tomosynthesis screening BI ?? Accession Number(s): [id number] ? cc: Barbara Breen MD ? EXAMINATION: ?? MM SCREENING DIGITAL BREAST TOMOSYNTHESIS, BILATERAL ? CLINICAL INFORMATION: ? Screening. Asymptomatic. ? COMPARISON: ?? Mammography: This study is compared with prior exams dating back to ?? 2017. ? TECHNIQUE: ?? Digital breast tomosynthesis is performed in both the craniocaudal and ?? mediolateral oblique views along with computer-aided detection (CAD). ?? Synthesized 2D images are generated from the tomosynthesis. ? FINDINGS: ?? There are scattered areas of fibroglandular density (ACR BI-RADS breast ?? composition Category b). ? There are no significant masses, abnormal calcifications, or other ?? abnormalities. ? MM/MM tomosynthesis screening BI ?? IMPRESSION: ?? No mammographic evidence of malignancy. ? ASSESSMENT: ? BI-RADS BI-RADS 1 - Negative ? RECOMMENDATION: ?? Routine annual mammography screening. ? 1 year F/U ? This examination should not preclude the clinical evaluation of a ?? suspicious palpable abnormality. ? This patient's information was entered into a reminder system with a ?? target due date for their next mammogram. ? Dictated By: ?Stephanie Williamson MD ? Signed By: ?<Electronically signed by Stephanie Williamson MD in OV> ? 09/05/23729 ? DD/ 1446 ? TD/TT: ? Pneumatic Riveter: ? Procedure Note Donwesleyter, Image - 09/05/2023 [facility] [address] [place], [place] [address] Mammography Report Signed Patient: Laura Arellano EMR#: [id number] 7 : 1955cct:[id number] Age/Sex: 68 / FADM Date: 08/19/23 Loc: HO.MAMMO Attending Dr: Milton Martin MD Ordering Physician: Barbara Breen sults: 1Negative Date of Service: 08/19/23Follow Up: 1 Year From Orig inal Mammogram Procedure(s): MM tomosynthesis screening BI Accession Number(s): [id number] cc: Barbara Breen MD EXAMINATION: MM SCREENING DIGITAL BREAST TOMOSYNTHESIS, BILATERAL CLINICAL INFORMATION: Screening. Asymptomatic. COMPARISON: Mammography: This study is compared with prior exams dating back to 2017. TECHNIQUE: Digital breast tomosynthesis is performed in both the craniocaudal and mediolateral oblique views along with computer-aided detection (CAD). Synthesized 2D images are generated from the tomosynthesis. FINDINGS: There are scattered areas of fibroglandular density (ACR BI-RADS breast composition Category b). There are no significant masses, abnormal calcifications, or other abnormalities. MM/MM tomosynthesis screening BI IMPRESSION: No mammographic evidence of malignancy. ASSESSMENT: BI-RADS BI-RADS 1 - Negative RECOMMENDATION: Routine annual mammography screening. 1 year F/U This examination should not preclude the clinical evaluation of a suspicious palpable abnormality. This patient's information was entered into a reminder system with a target due date for their next mammogram. Dictated By: Stephanie Williamson MD Signed By: <Electronically signed by Stephanie Williamson MD in OV> 09/05/23 0730 DD/ 1446 TD/TT: Pneumatic Riveter: Barbara Donahue MD IMG BI PROCEDURES Final Result * Lipid Panel, Standard (07/23/2023 9:33 AM EDT) Triglycerides 102 <150 mg/dL [facility] Comment:Desirable Triglyceri de: less than 150 mg/dLBorderline High Triglyceride 150-199 mg/dLHigh Triglyceride: 200-499 mg/dLVery High Triglyceride: greater than or equal to 5OO mg/dL Cholesterol 130 <200 mg/dL [facility] Comment:Desirable Cholestero l: less than 200 mg/dLBorderline High Cholesterol: 200-239 mg/dLHigh Cholesterol: greater than 239 mg/dL LDL Cholesterol Calculated 51 <100 mg/dL [facility] Comment:Desirable LDL: less than 100 mg/dLNear Optimal/Above Optimal LDL: 110- 129 mg/dLBorderline High LDL: 130-159 mg/dLHigh LDL: 160-189 mg/dLVery High LDL: greater than or equal to 190 mg/dL HDL Cholesterol 59 >40 mg/dL [facility] Comment:Desirable HDL: great er than 40 mg/dL Note: This HDL assay may give artificially low results in patients with liver disease. Blood Venous blood specimen / Unknown 07/23/2023 9:33 AM EDT 07/23/2023 11:23 AM EDT Barbara Donahue MD LAB BLOOD ORDERAB LES Final Result [facility] [address] [place] [address] [phone] * Pap Smear (04/09/2023 1:25 PM EDT) 04/09/2023 1:25 PM EDT 04/11/2023 10:00 AM EDT [facility] - 05/03/2023 10:26 AM EDT ----- ------- Name: Laura Arellano ?Age/Sex: 68/F ? : 1955 Unit#: [id number] ?? Attend Dr: Kimmy Love CNM ?Re04/09/23 ?Status: DEP REF ? Location: HO.LNP ?Disch: ? ----- ------- SPEC : [id number] ? RECD: 04/11/23-999 ? STATUS: ??SOUT ? REQ NUM: [id number] ? YUKI: 04/09/23-5 ? SUBM DR: Kimmy Love CNM ? ENTERED: ??04/11/23 ?SP TYPE: Pap Smr ?OTHR DR: Barbara Breen MD ORDERED: ??Pap Smear ? Interpretation ?? Satisfactory for evaluation. ?? Mild inflammation. ?? Negative for intraepithelial lesion or malignancy. ?HPV mRNA E6/E7: ?NOT DETECTED ? This assay detects E6/E7 viral messenger RNA (mRNA) from 14 high-risk HPV types (16, 18, ?? 31, 33, 35, 39, 45, 51, 52, 56, 58, 59, 66, 68) ?? HPV testing performed by [facility], [place], [place]. ??See reference laboratory ?? pion of the EMR for entire report. ?Clinical Information LMP: Menopausal Previous PAP test: 2017, Abnormal Other surgery: Leep 2014 SWATHI II ? Material Received ?? ThinPrep-Cervical Copies To: ?? Kimmy Love CNM ?? [address] [place] [address] Dr. [address] ?? [place] [address] ?? [phone] ?? Barbara Breen MD ?? [address] [employer] ?? [place] [address] ?? [phone] ----- ------- Signed (signature on file) Marietta LATASHA Moran ([facility]) 05/03/23 1026 ? ----- ------- ? END OF REPORT ? [facility] External Provider LAB CYT OLOGY ORDERABLES Final Result [facility] [address] [place] [phone] * Hepatitis C Antibody with Reflex to HCV, RNA, Quantitative, Real-Time PCR (02/07/2023 8:36 AM EDT) Hepatitis C Antibody NON-REACT JUAN NON-REACT JUAN [facility] [employer] Index 0.10 <1.00 [facility] Comment: HCV antibody was non-reactive. There is no laboratory evidence of HCV infection. In most cases, no further action is required. However, if recent HCV exposure is suspected, a test for HCV RNA (test code 59191) is suggested. For additional information please refer to http://education.[employer]/faq/NHY36x6 (This link is being provided for informational/ educational purposes only.) Blood Venous blood specimen / Unknown 02/07/2023 8:36 AM EDT 02/07/2023 8:37 AM EDT Narrative [facility] - 02/12/2023 12:57 AM EDT FASTING:YES COLLECTION KIT GIVEN TO PATIENT. PATIENT ADVISED TO RETURN. FASTING: YES Barbara Donahue MD LAB BLOOD ORDERAB LES Final Result [facility] [address] [facility], [facility], [place] [address] [facility] [address] [place] [address] from Last 3 Months or Most Recently Relevant to Health Maintenance Insurance - [employer] Care Teams Trader Relationship Specialty Start Date End Date Barbara Breen MD [address] [place] [address] PCP - General Internal Medicine 01/15/23
--- OUTSIDE RECORDS SUMMARY | 2024-12-11 10:32 | XMS_ITS | Encounter Summary ---
Author Organization [employer] Address [address] [place] [address] 7 [place] [address] Care Team Providers Care Mutuel Teller Name Role Phone Barbara Breen MD Primary Care Pro vider Reason for Visit * Reason Comments Med Refill Encounter Details Date Type Department Care Team ([facility] st Contact Info) Description 11/13/2024 Refill [facility] MEDICINE [address] [place] [address] Barbara Breen MD [address] [place] [address] Other hyperlipidemia Social History Tobacco Use Types Packs/Day Years Used Date Smoking Tobacco: Never Passive Smoke Exposure: Never Smokeless Tobacco: Never Alcohol Use Standard Drinks/Week Comments Yes 0 (1 standard drink = 0.6 oz pur e alcohol) social Depression Answer Date Recorded Patient Health Questionnaire-9 Score 1 02/05/2023 Housing Stability Answer Date Recorded What is your housing situation today? I have elieafsaneh cruz 07/22/[address] you li [...] AM EDT documented as of this encounter Plan of Treatment Upcoming Encounters Date Type Department Care Team (Late st Contact Info) Description 12/15/2024 11:00 AM EDT Office Visit [facility] OPTOM[facility] [address] [place] [address] [phone] documented as of this encounter Visit Diagnoses Diagnosis Other hyperlipidemia documented in this encounter Additional Health Concerns Assessment Noted Time PHQ-9 Depression Total Score: 1 02/06/20 23 10:09 AM EDT documented as of this encounter Care Teams Mutuel Teller Relationship Specialty Start Date End Date Barbara Breen MD [address] [place] [phone] PCP - General Internal Medicine 01/15/23 documented as of this encounter
--- OUTSIDE RECORDS SUMMARY | 2024-12-11 10:32 | XMS_ITS | Encounter Summary ---
Author Organization [employer] Address [address] [place] [address] 7 [place] [address] Care Team Providers Care Footwear Sales Representative Name Role Phone Barbara Breen MD Primary Care Pro vider Reason for Visit * Reason Comments Med Change Request Encounter Details Date Type Department Care Team ([facility] Contact Info) Description 08/09/2023 Refill [facility] MEDICINE [address] [place] [address] Barbara Breen MD 230 [place] [address] Social History Tobacco Use Types Packs/Day Years [...] Description 12/15/2024 11:00 AM EDT Office Visit [facility] OPTOMETRY [address] [place] [address] [phone] documented as of this encounter Visit Diagnoses Not on filedocumented in this encounter Additional Health Concerns Assessment Noted Time PHQ-9 Depression Total Score: 1 02/06/20 23 10:09 AM EDT documented as of this encounter Care Teams Footwear Sales Representative Relationship Specialty Start Date End Date Barbara Breen MD [address] [place] [id number] PCP - General Internal Medicine 01/15/23 documented as of this encounter
--- OUTSIDE RECORDS SUMMARY | 2024-12-11 10:32 | XMS_ITS | Encounter Summary ---
Author Organization [employer] Address [address] [place] [address] 7t [place] [address] Care Team Providers Care Instructional Technology Director Name Role Phone Dede Child Primary Care Provider [phone] Barbara Breen MD Primary Care Pro vider Reason for Visit * Reason Comments Med Change Request Encounter Details Date Type Department Care Team (Late Contact Info) Description 10/26/2022 Refill [facility] MEDICINE [address] [place] [address] Dede Child FNP [address] [place] [address] Controlled type 2 diabetes mellitus without complication, without long-term current use of insulin (CMS/HCC) (Primary Dx); Type 2 diabetes mellitus with hyperosmolarity without coma, without long-term current use of insulin (CMS/HCC) Social History Tobacco Use Types Packs/Day Years [...] Encounters Date Type Department Care Team (Late Contact Info) Description 12/15/2024 11:00 AM EDT Office Visit [facility] OPTOMETRY [address] [place] [address] documented as of this encounter Visit Diagnoses Diagnosis Controlled type 2 diabetes mellitus without complication, without long-term current use of insulin (CMS/HCC)- Primary Type 2 diabetes mellitus with hyperosmolarity without coma, without long-term current use of insulin ([facility]) documented in this encounter Care Teams Instructional Technology Director Relationship Specialty Start Date End Date Dede Child FNP [address] [place] [address] PCP - General Family Medicine 10/26/22 01/14/23 Barbara Breen MD 230 [place] [address] PCP - General Internal Medicine 01/15/23 documented as of this encounter
--- OUTSIDE RECORDS SUMMARY | 2024-12-11 10:32 | XMS_ITS | Encounter Summary ---
Author Organization [employer] Address [address] [place] [address] 7 [place] [address] Care Team Providers Care Medical Claims Examiner Name Role Phone Barbara Breen MD Primary Care Pro vider Reason for Visit * Reason Comments Med Refill Encounter Details Date Type Department Care Team ([facility] st Contact Info) Description 08/15/2024 Refill [facility] MEDICINE [address] [place] [address] Barbara Breen MD [address] [place] [address] Other hyperlipidemia Social History Tobacco Use Types [...] Description 12/15/2024 11:00 AM EDT Office Visit [facility] OPTOMETRY [address] [place] [address] [phone] documented as of this encounter Visit Diagnoses Diagnosis Other hyperlipidemia documented in this encounter Additional Health Concerns Assessment Noted Time PHQ-9 Depression Total Score: 1 02/06/20 23 10:09 AM EDT documented as of this encounter Care Teams Medical Claims Examiner Relationship Specialty Start Date End Date Barbara Breen MD [address] [place] [id number] PCP - General Internal Medicine 01/15/23 documented as of this encounter
--- OUTSIDE RECORDS SUMMARY | 2024-12-11 10:32 | XMS_ITS | Encounter Summary ---
Author Organization [employer] Address [address] [place] [address] [place] [address] Care Team Providers Care Casting Machine Adjuster Name Role Phone Barbara Breen MD Primary Care Pro vider Reason for Visit * Reason Comments Med Refill Encounter Details Date Type Department Care Team ([facility] Contact Info) Description 03/28/2023 Refill [facility] MEDICINE [address] [place] [address] Barbara Breen MD [address] [place] [address] Social History Tobacco Use Types Packs/Day Years Used Date Smoking Tobacco: Never Passive Smoke Exposure: Never Smokeless Tobacco: Never Alcohol Use Standard Drinks/Week Comments Yes 0 (1 standard drink = 0.6 oz pur e alcohol) social Depression Answer Date Recorded Patient Health Questionnaire-9 Score 1 02/05/2023 Depression Answer Date Recorded Patient Health Questionnaire-2 Score 0 02/05/2023 Comments Unknown Sex and Gender Information Value Date Recorded Sex Assigned at Female 07/30/2022 10:20 AM EDT Legal Sex Female 10:20 AM EDT Gender Identity Female 07/30/2022 10:20 AM EDT Sexual Orientation Straight 07/30/2022 10 :20 AM EDT COVID-19 Exposure Response Date Recorded In the last 10 days, have yo u been in contact with someone who was confirmed or suspected to have Coronavirus/COVID-19? No / Unsure 03/28/2023 2:42 PM EDT documented as of this encounter Plan of Treatment Upcoming Encounters Date Type Department Care Team ([facility] Contact Info) Description 12/15/2024 11:00 AM EDT Office Visit [facility] OPTOMETRY [address] [place] [address] documented as of this encounter Visit Diagnoses Not on filedocumented in this encounter Additional Health Concerns Assessment Noted Time PHQ-9 Depression Total Score: 1 02/06/20 10:09 AM EDT documented as of this encounter Care Teams Casting Machine Adjuster Relationship Specialty Start Date End Date Barbara Breen MD [address] [place] [phone] PCP - General Internal Medicine 01/15/23 documented as of this encounter
--- OUTSIDE RECORDS SUMMARY | 2024-12-11 10:32 | XMS_ITS | Encounter Summary ---
Author Organization [employer] Address [address] [place] [address] [place] [address] Care Team Providers Care Business Office Technology Instructor Name Role Phone Barbara Breen MD Primary Care Pro vider Reason for Visit * Reason Onset Date Comments Med Refill 11/18/2024 Encounter Details Date Type Department Care Team ([facility] st Contact Info) Description 11/18/2024 Refill [facility] MEDICINE [address] [place] [address] Barbara Breen MD [address] [place] [address] Primary hypertension Social History Tobacco Use Types Packs/Day Years [...] encounter Miscellaneous Notes * Telephone Encounter - Yamila Garibay - 11/18/2024 11:32 AM EST TC from pt requesting medication refill. Medications needing refill : losartan (Cozaar) 100 MG tablet To be sent to: [facility] #[id number] [place] [address] - [address] [place] [address] documented in this encounter Plan of Treatment Upcoming Encounters Date Type Department Care Team (Late st Contact Info) Description 12/15/2024 11:00 AM EDT Office Visit [facility] OPTOMETRY [address] [place] [phone] documented as of this encounter Visit Diagnoses Diagnosis Primary hypertension Unspecified essential hypertension documented in this encounter Additional Health Concerns Assessment Noted Time PHQ-9 Depression Total Score: 1 02/06/20 23 10:09 AM EDT documented as of this encounter Care Teams Business Office Technology Instructor Relationship Specialty Start Date End Date Barbara Breen MD [address] [place] [phone] PCP - General Internal Medicine 01/15/23 documented as of this encounter
== END 2024-12-11 10:25 | disposition home or self-care (01) ==
LOC: HO.HCS 09:36
PROVIDERS: PCP Student in an Organized Health Care Education/Training Program; Visit Provider Nurse Practitioner Family
DX: R55 Syncope and collapse (principal); I10 Essential (primary) hypertension; R93.1 Abnormal findings on diagnostic imaging of heart and coronary circulation
CPT/HCPCS: 99214; G2211

== ENCOUNTER → 2024-12-11 09:35 | Outpatient (BNVA) | payer OTHER, SELFPAY | PROVIDERS: PCP Student in an Organized Health Care Education/Training Program; Visit Provider Nurse Practitioner Family ==

== ENCOUNTER 2025-05-19 14:32 | Outpatient (REF) | payer MEDICARE, MEDICAID, SELFPAY ==
--- NOTE | ~2025-05-19 | XR_ITS ---
EXAMINATION: XR CHEST CLINICAL INFORMATION: 1 mo of onging dry mouth COMPARISON: Chest x-ray 02/20/2021 TECHNIQUE: 2 views of the chest were obtained. FINDINGS: Lungs are well-expanded and clear. The heart size and pulmonary vascularity is normal. No gross bony abnormality. XR/XR chest 2V IMPRESSION: Unremarkable chest examination. Electronically signed by: Joel Calloway MD 05/19/2025 02:58 PM EDT RP
--- OUTSIDE RECORDS SUMMARY | 2025-05-19 15:30 | XMS_ITS | Encounter Summary ---
Author Organization [employer] Address [address] [place] [address] 7 [place] [address] Care Team Providers Care Drafting Layout Man Name Role Phone Barbara Breen MD Primary Care Pro vider Reason for Visit * Reason Comments Med Refill Encounter Details Date Type Department Care Team ([facility] Contact Info) Description 08/15/2024 Refill [facility] MEDICINE [address] [place] [address] Barbara Breen MD [address] [place] [address] Other hyperlipidemia Social History Tobacco Use Types [...] t he electric, gas, oil or water [facility] threatened to shut off services in your [...] Care Team (Late st Contact Info) Description 07/22/2025 11:15 AM EDT Office Visit [facility] MEDICINE [address] [place] [address] Barbara Breen MD [address] [place] [phone] documented as of this encounter Visit Diagnoses Diagnosis Other hyperlipidemia documented in this encounter Additional Health Concerns Assessment Noted Time PHQ-9 Depression Total Score: 1 02/06/20 23 10:09 AM EDT documented as of this encounter Care Teams Drafting Layout Man Relationship Specialty Start Date End Date Barbara Breen MD [address] [place] [address] [phone] PCP - General Internal Medicine 01/15/23 documented as of this encounter
== END 2025-05-19 14:33 | disposition home or self-care (01) ==
LOC: HO.HHCX 14:32
PROVIDERS: PCP Student in an Organized Health Care Education/Training Program; Visit Provider Student in an Organized Health Care Education/Training Program
DX: R05.8 Other specified cough (principal)
CPT/HCPCS: 71046

== ENCOUNTER → 2025-05-19 14:38 | Outpatient (BNV) | payer MEDICARE, MEDICAID, SELFPAY | PROVIDERS: PCP Student in an Organized Health Care Education/Training Program; Visit Provider Radiology Diagnostic Radiology | DX: R68.2 Dry mouth, unspecified (principal) | CPT/HCPCS: 71046 ==

== ENCOUNTER 2025-06-01 15:18 | Outpatient (AMB) | payer MEDICARE, MEDICAID, SELFPAY ==
--- NOTE | 2025-06-01 15:34 | HO.NEPHOV ---
Vital Signs 06/01/25 15:35 Height 5 ft 2 in Weight 175 lb BMI 32.0 BP 150/70 H Blood Pressure Location Lt brachial Position Sitting Pulse 58 Pulse Source Pulse Oximeter Pulse Oximetry (%) 97 Oxygen Delivery Method Room Air Intake Visit Reasons: ENP: Uncontrolled hypertension-[facility] Administrator Required: No Accompanied by: Self / Same As Patient Allergies nifedipine Allergy (Mild, Verified 06/01/25 15:38) Unknown HPI Comments Details: 70-year-old very pleasant and cheerful lady with past medical history of hypertension, hypothyroidism, low vitamin-D is here to establish care for the management of hypertension Hypertension: Since many years , on losartan 100 mg, spironolactone 12.5 mg daily, metoprolol 25 mg b.i.d. no other medical problems not taking vitamin D pills her recently diagnosed with cancer and is slightly stressed about it. [facility] Medical History GERD (gastroesophageal reflux disease) Type 2 diabetes mellitus Hypothyroid Elevated cholesterol High blood pressure Surgical History History of laparoscopic cholecystectomy (04/11/23) History of loop electrical excision procedure (LEEP) Hx of dilation and curettage H/O colonoscopy Family History Father Prostate cancer Sister History of breast cancer BRCA negative Family/Other Colon cancer Social History Household Members: Spouse Alcohol intake: current Alcohol intake frequency: holidays/special occasions only Patient Tobacco Use Status: Never used Tobacco Sexual orientation: Straight/Heterosexual Gender identity: Female Review of Systems Const Details: Const : no body aches, no chills, no excessive sweating and no fatigue Eyes: no blurry vision and no change in vision ENT: no bleeding gums and no change in voice, no dizziness Card: no chest pain, no shortness of breath, no orthopnea, no PND Resp: no cough, no excessive phlegm production, no SOB GI: no abdominal pain and no nausea, no vomiting : no hematuria, no urinary frequency and no difficulty voiding Musc: no abnormal gait, no bone pain Neuro: no abnormal movements, no weakness, no dizziness Psych: no behavioral changes and no change in appetite Endo: no change in body appearance, no cold intolerance, snores in the night Physical Exam Vital Signs: Last Vital Signs Pulse 58 06/01/25 15:35 BP 150/70 H 06/01/25 15:35 Pulse Ox 97 06/01/25 15:35 Oxygen Delivery Method Room Air 06/01/25 15:35 BMI result Body Mass Index 32.0 General: not in any acute distress, comfortable, sitting on the chair Nutritional Appearance: well nourished and weight Eyes: normal position, no icterus Neck: No lymphadenopathy, no thyromegaly Resp: bilateral air entry equal, no added sounds present Cardio: normal S1, S2 heard, no murmur heard, no edema GI: soft, nontender, no guarding, no hepatosplenomegaly : bladder normal to inspection, bladder normal to palpation, no renal angle tenderness Skin: no rashes or lesions noted and elasticity normal Neuro: oriented to person, oriented to place, oriented to time and moves all extremities Assessment & Plan Assessment & Plan (1) Essential hypertension: Code(s): I10 - Essential (primary) hypertension Category: Medical (2) Vitamin D deficiency: Code(s): E55.9 - Vitamin D deficiency, unspecified Category: Medical Plan Hypertension Patient regularly checks his blood pressure at his home and is usually around:115-130, at office is usually around: Currently she is on losartan 100 mg, spironolactone 12.5 mg, metoprolol 25 b.i.d. good/ poor compliance to medication sleep study done an year ago was normal She is nonsmoker, h/o CAD- grand mother, no stroke in family, diabetic. Her relative risk reduction of major cardiovascular events is possibly high, will calculate based on lab results. Starting on Monjauro this week, currently weighing 175lbs, loosing weight would definitely help controlling blood pressures- explained to her. plan: - target SBP < 120-130/90 or <140/90 - weight reduction, low salt diet, smoking cessation, plasma aldosterone and renin levels to look for the ratio, TSH ordered - will get renal artery dopplers to rule out renal artery stenosis - will plan for 24 hr sodium, aldosterone and creatinine excretion if needed - avoid any NSAID intake, excessive decongestant intake, herbal preparations intake - will do a 24 hours ambulatory blood pressure monitoring and will call her based on results, possibly will take off metoprolol and adjust spironolactone as necessitated. Vitamin D deficiency: not on supplements will check Vitamin D and PTH levels. Orders: Orders UA and rflx microscopic Today E55.9 - Vitamin D deficiency, unspecified, I10 - Essential (primary) hypertension Microalbumin, Random (w Creat) Today E55.9 - Vitamin D deficiency, unspecified, I10 - Essential (primary) hypertension Total Protein Urine Random Today E55.9 - Vitamin D deficiency, unspecified, I10 - Essential (primary) hypertension Vitamin D 25-OH Total Today E55.9 - Vitamin D deficiency, unspecified, I10 - Essential (primary) hypertension Parathyroid Hormone Intact Today E55.9 - Vitamin D deficiency, unspecified, I10 - Essential (primary) hypertension Aldost/Renin Today E55.9 - Vitamin D deficiency, unspecified, I10 - Essential (primary) hypertension AMB 24 HR B/P Monitor PLACEMENT Today E55.9 - Vitamin D deficiency, unspecified, I10 - Essential (primary) hypertension Hemoglobin A1c Today E55.9 - Vitamin D deficiency, unspecified, I10 - Essential (primary) hypertension Lipid Panel Today E55.9 - Vitamin D deficiency, unspecified, I10 - Essential (primary) hypertension Basic Metabolic Panel Today E55.9 - Vitamin D deficiency, unspecified, I10 - Essential (primary) hypertension Creatinine Urine Today E55.9 - Vitamin D deficiency, unspecified, I10 - Essential (primary) hypertension US renal doppler Today E55.9 - Vitamin D deficiency, unspecified, I10 - Essential (primary) hypertension TSH reflex Free T4 Today E55.9 - Vitamin D deficiency, unspecified, I10 - Essential (primary) hypertension Magnesium Today E55.9 - Vitamin D deficiency, unspecified, I10 - Essential (primary) hypertension Potassium Urine Random Today E55.9 - Vitamin D deficiency, unspecified, I10 - Essential (primary) hypertension Coding Level of Care Code New Pt Level 4 (89835) Diagnoses Essential hypertension I10 Vitamin D deficiency E55.9
[2025-06-01 15:35] VITALS: BP 150/70; PULSE 58; O2SAT 97; BMI 32.0
--- OUTSIDE RECORDS SUMMARY | 2025-06-01 16:26 | XMS_ITS | Encounter Summary ---
Author Organization [employer] Address [address] [place] [address] [place] [address] Care Team Providers Care Collar Setter Overlock Name Role Phone Dede Child [facility] Primary Care Provider [phone] Barbara Breen MD Primary Care Pro vider Reason for Visit * Reason Comments Med Change Request Encounter Details Date Type Department Care Team (Late Contact Info) Description 10/26/2022 Refill [facility] MEDICINE [address] [place] [address] Dede Child FNP [address] [place] [address] Controlled type 2 diabetes mellitus without complication, without long-term current use of insulin ([facility]) (Primary Dx); Type 2 diabetes mellitus with hyperosmolarity without coma, without long-term current use of insulin (CMS/[facility]) Social History Tobacco Use Types Packs/Day Years [...] Department Care Team (Late Contact Info) Description 07/22/2025 11:15 AM EDT Office Visit [facility] MEDICINE [address] [place] [address] Barbara Breen MD [address] [place], [place] [phone] documented as of this encounter Visit Diagnoses Diagnosis Controlled type 2 diabetes mellitus without complication, without long-term current use of insulin (CMS/HCC)- Primary Type 2 diabetes mellitus with hyperosmolarity without coma, without long-term current use of insulin (CMS/HCC) documented in this encounter Care Teams Collar Setter Overlock Relationship Specialty Start Date End Date Dede Child FNP [address] [place] [address] PCP - General Family Medicine 10/26/22 01/14/23 Barbara Breen MD [address] [place] [address] PCP - General Internal Medicine 01/15/23 documented as of this encounter
--- OUTSIDE RECORDS SUMMARY | 2025-06-01 16:26 | XMS_ITS | Encounter Summary ---
Author Organization [employer] Address [address] [place] [address] 7t [place] [address] Care Team Providers Care Wildlife Control Agent Name Role Phone Dede Child INDUSTRIAL ORDER CLERK Primary Care Provider [phone] Barbara Breen MD Primary Care Pro vider Reason for Visit * Reason Onset Date Comments Med Refill 10/26/2022 Encounter Details Date Type Department Care Team (Late st Contact Info) Description 10/26/2022 Refill [facility] MEDICINE [address] [place] [phone] Milton Martin MD Type 2 diabetes mellitus with hyperosmolarity without coma, without long-term current use of insulin ([facility]) (Primary Dx); Primary hypertension; Hypothyroidism, unspecified type [...] Description 07/22/2025 11:15 AM EDT Office Visit [facility] MEDICINE [address] [place] [address] Barbara Breen MD [address] [place], [place] [phone] documented as of this encounter Visit Diagnoses Diagnosis Type 2 diabetes mellitus with hyperosmolarity without coma, without long-term current use of insulin ([facility])- Primary Primary hypertension Unspecified essential hypertension Hypothyroidism, unspecified type documented in this encounter Care Teams Wildlife Control Agent Relationship Specialty Start Date End Date Dede Child FNP [address] [place], [place] [phone] PCP - General Family Medicine 10/26/22 01/14/23 Barbara Breen MD [address] [place] [address] [phone] PCP - General Internal Medicine 01/15/23 documented as of this encounter
--- OUTSIDE RECORDS SUMMARY | 2025-06-01 16:26 | XMS_ITS | Encounter Summary ---
Author Organization [employer] Address [address] [place] [address] 7 [place] [address] Care Team Providers Care Stack Yield Engineer Name Role Phone Barbara Breen MD Primary Care Pro vider Reason for Visit * Reason Comments Med Refill Encounter Details Date Type Department Care Team ([facility] Contact Info) Description 08/15/2024 Refill [facility] [address] [place] [address] Barbara Breen MD [address] [place] [address] Other hyperlipidemia Social History Tobacco Use Types [...] t he electric, gas, oil or water [employer] threatened to shut off services in your [...] Description 07/22/2025 11:15 AM EDT Office Visit [facility] [address] [place] [phone] Barbara Breen MD [address] [place] [phone] documented as of this encounter Visit Diagnoses Diagnosis Other hyperlipidemia documented in this encounter Additional Health Concerns Assessment Noted Time PHQ-9 Depression Total Score: 1 02/06/20 23 10:09 AM EDT documented as of this encounter Care Teams Stack Yield Engineer Relationship Specialty Start Date End Date Barbara Breen MD [address] [place] [address] [phone] PCP - General Internal Medicine 01/15/23 documented as of this encounter
--- OUTSIDE RECORDS SUMMARY | 2025-06-01 16:26 | XMS_ITS | Clinical Summary ---
Author Organization [employer] Address [address] [facility] 7[address] [place] [address] Care Team Providers Care Lockstitch Cup Setter Name Role Phone Barbara Breen MD Primary Care Pro vider Allergies Active Allergy Reactions Criticality Noted Date Comments Nifedipine Rash Low 08/23/2021 Medications FreeStyle lancetsIndications :Type 2 diabetes mellitus with hyperosmolarity without coma, without long-term current use of insulin ([facility]) CHECK BY FINGERSTICK ROUTE 3 TIMES EVERY DAY 100 each 11 023 Active glucose blood (Via Response TechnologiesTouch Verio) test stripIndications:T ype 2 diabetes mellitus with hyperosmolarity without coma, without long-term current use of insulin ([facility]) Test blood sugar 3 times a day 100 strip 11 023 Active Blood Glucose Monitoring Suppl (OneTouch Verio Flex System) w/Device kitIndications:Typ e 2 diabetes mellitus with hyperosmolarity without coma, without long-term current use of insulin ([facility]) Test blood sugars 3 times a day 1 kit 023 Active OneTouch Delica Lancets 33G miscIndications:Ty pe 2 diabetes mellitus with hyperosmolarity without coma, without long-term current use of insulin ([facility]) Teas blood sugars 3 times a day 100 each 11 023 Active losartan (Cozaar) 100 MG tabletIndications: Primary hypertension TAKE 1 TABLET BT MOUTH EVERY DAY 90 tablet 025 Active spironolactone (Aldactone) 25 MG tablet TAKE 1/2 TABLET ORALLY DAILY FOR 90 DAYS 025 Active metoprolol tartrate (Lopressor) 25 MG tablet TAKE 1 TABLET BY MOUTH 2 TIMES A DAY PLEASE CALL FOR CARDIOLOGY FOLLOW UP [facility]- [phone] Active levothyroxine (Synthroid, Levoxyl) 75 MCG tabletIndications: Hypothyroidism, unspecified type TAKE 1 TABLET BY MOUTH EVERY DAY 90 tablet Active atorvastatin (Lipitor) 20 MG tabletIndications: Other hyperlipidemia TAKE 1 TABLET BY MOUTH EVERY DAY IN THE EVENING 90 tablet Active Tirzepatide (Mounjaro) 2.5 MG/0.5ML solution auto-injector Inject 2.5 mg under the skin 1 (one) time per week. Start 2.5 mg weekly x 4 weeks, then increase to 5 mg weekly x 4 weeks, then 7.5 mg weekly 2 mL 025 2024 Active fluticasone (Flonase) 50 MCG/ACT nasal spray Administer 1-2 sprays into each nostril Once per day for 28 days. Shake gently. Before first use, prime pump. After use, clean tip and replace cap.treat postansal drip for 28 days no need refills 16 g 025 2024 Active sodium chloride ([place]) 0.65 % nasal spray Administer 1 spray into each nostril if needed for rhinitis. 15 mL 2 025 2025 Active pantoprazole (ProtoNix) 20 MG EC tablet Take 1 tablet (20 mg) by mouth before breakfast. Do not crush, chew, or split. 90 tablet 025 2024 Active fexofenadine (Suly) 180 MG tablet Take 1 tablet (180 mg) by mouth if needed each day (Allergies). 90 tablet 025 2024 Active loratadine (Claritin) 10 MG tablet Take 1 tablet (10 mg) by mouth in the morning. 30 tablet 2 023 2024 Discontinued(O ther) pantoprazole (ProtoNix) 20 MG EC tablet Take 1 tablet (20 mg) by mouth before breakfast. Do not crush, chew, or split. 90 tablet 023 2024 Discontinued(R eorder (will not trigger notification to Pharmacy)) hydrOXYzine HCl (Atarax) 10 MG tablet Take 1 tablet (10 mg) by mouth every 12 (twelve) hours if needed for itching or anxiety for up to 10 days. 30 tablet 023 2024 Discontinued(O ther) cholecalciferol (Vitamin D3) 25 MCG (1000 UT) tablet TAKE 1 TABLET (25 MCG) BY MOUTH IN THE MORNING 90 tablet 1 024 2024 Discontinued(O ther) atorvastatin (Lipitor) 20 MG tabletIndications: Other hyperlipidemia TAKE 1 TABLET BY MOUTH EVERY DAY IN THE EVENING 90 tablet 025 2024 Discontinued Active Problems Problem Noted Date Diagnosed Date Dry cough 05/18/2025 Memory loss 06/30/2023 Elevated bilirubin 03/05/2023 Assessment & Plan (03/28/2023 5:56 PM EDT): -bilirubin total is 1.7<--- 2 ,indirect 1.6, LDH and haptoglobin are wnl, PTH ,ionisex ca wnl ,,02/2021 SPEP and UPEP that were normal in Next -Abd US 02/2023: generalized increase in hepatic [...] indication at this time for further testing [facility] maintenance 02/05/2023 Assessment & Plan (03/28/2023 5:56 PM EDT): -menopause : 56y of age -pap smear:2020 neg per pt--pt f w AUDIO/VISUAL MANAGER at [facility]-has apt x 04/09/23 -MM: 07/2022 : birads [...] -pap smear:2020 neg per pt--pt f w AUDIO/VISUAL MANAGER at [facility]-pt states will schedule apt w them and [...] 2017 w zostavax--today to get vaccine at vaccine clinic to start series of shingrix -low vit D -started daily vit D -not adding ca w normal but borderline elev ca Assessment & Plan (02/05/2023 12:50 PM EDT): -menopause : 56y of age -pap smear:2020 neg per pt--pt f w AUDIO/VISUAL MANAGER at [facility]-pt states will schedule apt w them and [...] 2016 w zostavax--today to get vaccine at to [...] diet and exercise,discussed healthy life style -discussed surfacer operator referral but wants t hold x now -Will discuss w pt about consider low dose trulicity at her next apt x DM and obesity Assessment & Plan (03/05/2023 3:17 PM EDT): Advised pt to improve diet and exercise,discussed healthy life style -discussed surfacer operator referral but wants t hold x now Assessment & Plan (02/05/2023 12:35 PM EDT): Advised pt to improve diet and exercise,discussed healthy life style -discussed surfacer operator referral but wants t hold x now [...] -last 3 y ago-normal per pt-referred already -occupational therapy assistant -will refer at next visit if uncontrol result -DM labs in 6 mo -aprox 08/2023 Assessment & Plan (03/05/2023 3:16 PM EDT): Mentioned hx of DM -controlled w meds 01/2023 Hb1AC Is 5.9, LDL 64, Microalb neg Not tolerated metformin before -life style changes advised -ophthalmology -lat 3 y ago-normal per pt-referred already -occupational therapy assistant -will refer at next visit if uncontrol result -DM labs in 6 mo Assessment & Plan (02/05/2023 12:33 PM EDT): Mentioned hx of DM -controlled w meds -will do fasting labs -ophthalmology -lat 3 y ago-normal per pt-referred today -occupational therapy assistant -will refer at next visit if uncontrol [...] Problem Noted Date Diagnosed Date Resolved Date Hair loss 06/30/2023 05/18/2025 Diabetes due to undrl condit ion w oth diabetic neuro comp 03/28/2023 03/28/2023 Encounters Date Type Department Care Team Description 05/26/2025 Telephone [facility] [address] [place] [phone] Barbara Breen MD Prior Authorization (Irma) 05/19/2025 Results Follow-Up [address] [address] Barbara Breen MD XR Chest 2 Views 05/18/2025 2:15 PM EDT Office Visit [address] [address] Barbara Breen MD Breast cancer screening by mammogram (Primary Dx); Postmenopausal; Type 2 diabetes mellitus without complication, without long-term current use of insulin ([facility]); Uncontrolled hypertension; Dietary counseling; Exercise counseling; Annual physical exam; Dry cough; Encounter for immunization; Essential hypertension; Acquired hypothyroidism; Obesity (BMI 30.0-34.9); Elevated bilirubin; Heartburn; Health care maintenance; Memory loss 05/18/2025 Travel 05/12/[address] [address] Barbara Breen MD Other hyperlipidemia 04/11/[address] [address] Barbara Breen MD Hypothyroidism, unspecified type from Last 3 Months Immunizations Immunization Administration Dates Next Due Influenza High-dose Quadriva lent Preservative Free 06/28/2023,07/04/2022 Influenza injectable quadriv alent IIV4 with preservative 07/02/2018,07/02/2017 Influenza injectable quadriv alent preservative free 06/30/2021,06/22/2020,07/28/2019,07/05 Influenza, High Dose Seasona l, Preservative Free 06/25/2024 Influenza, IIV3, injectable 06/09/2014 Influenza, Split (incl. cally fied surface antigen) 09/02/2013,08/20/2012 Pfizer Covid-19 Vaccine 12+ 06/25/2024 Pneumococcal Conjugate PCV 20 07/13/2022 Pneumococcal Polysaccharide PPSV23 10/22/2019 Tdap 05/18/2025,11/25/2013 Zoster, Recombinant 05/07/2023,03/05/2023 Zoster, live 07/25/2017 Family History Medical History Relation Name Comments hypothyroidism,prostate ca Father DM2,hypothyroidism Mother Breast cancer Sister Relation Name Status Comments Father Mother Sister Social History Tobacco Use Types Packs/Day Years Used Date Smoking Tobacco: Never Passive Smoke Exposure: Never Smokeless Tobacco: Never Tobacco Cessation:Counseling Given: Not Answered Alcohol Use Standard Drinks/Week Comments Not Currently 0 (1 standard drink = 0.6 oz pur e alcohol) social Depression Answer Date Recorded Patient Health Questionnaire-9 Score 1 02/05/2023 Housing Stability Answer Date Recorded What is your housing situation today? I have elie cruz 07/22/[address] you [...] the past 12 months, has t he [employer], gas, oil or water company threatened to shut off services in your home? No 07/22/2023 Depression Answer Date Recorded Patient Health Questionnaire-2 Score 0 02/05/2023 Comments No Sex and Gender Information Value Date Recorded Sex Assigned at Female 07/30/2022 10:20 AM EDT Legal Sex Female 10:20 AM EDT Gender Identity Female 07/30/2022 10:20 AM EDT Sexual Orientation Straight 07/30/2022 10 :20 AM EDT Last Filed Vital Signs Vital Sign Reading Time Taken Comments Blood Pressure 150/84 05/18/2025 11:17 PM EDT Pulse 64 05/18/2025 2:44 PM EDT Temperature 36.7 C (98 F) 05/18/2025 2:44 PM EDT Respiratory Rate 20 05/18/2025 2:44 PM EDT Oxygen Saturation 98% 05/18/2025 2:44 PM EDT Inhaled Oxygen Concentration - - Weight 80.6 kg (177 lb 12.8 oz) 05/18/2025 2:44 PM EDT Height 157.5 cm (5' 2 ) 05/18/2025 2:44 PM EDT Body Mass Index 32.52 05/18/2025 2:44 PM EDT Plan of Treatment Upcoming Encounters Date Type Department Care Team (Late st Contact Info) Description 07/22/2025 11:15 AM EDT Office Visit [facility] [address] [place] [address] [phone] Barbara Breen MD [address] [place], [place] [phone] Health Maintenance Due Date Last Done Comments CT Colonography 1955 Colonoscopy 1957 Colorectal Cancer Screening 1955 FIT DNA/Cologuard 1957 FIT 1957 FOBT 1955 Sigmoidoscopy 1957 Diabetes: Foot Exam 1967 Eye Exam 1967 Alcohol/Substance Use Screening 1969 Diabetes: Urine Protein Screening 03/23/2022 03/23/2021, 03/21/2021 SDOH Screening 01/30/2024 01/29/2023 Depression Screening 02/06/2024 02/05/2023, 02/06/20 23 Lipid Panel 07/23/2024 07/23/2023, 0509/2022, 03/23/2021 COVID-19 Vaccine ( season) 2025 06/25/2024, 07/04/2022, 09/19/2021, Additional history exists Influenza Vaccine (#1) 2025 , 06/28/2023, 07/04/2022, Additional history exists Diabetes: Hemoglobin A1C 08/18/2025 025, 07/23/2023, 02/07/2023, Additional history exists Mammogram 08/19/2025 08/19/2023, 07/31, 07/26/2022, Additional history exists Tobacco Screening 05/18/2026 05/18/2025 RSV Patients and Patients Aged 60 years or older (1 - 1-dose 75+ series) 2032 DTaP/Tdap/Td Vaccines (3 - Td or Tdap) 05/18/2035 05/18/2025, 11/25/2013 Pneumococcal Vaccine: 50+ Years Completed 07/13/2022, 10/22/2019 Hepatitis C Screening Completed 02/07/2023, 020 Cervical Cancer Screening Discontinued Pap Smear Discontinued 04/09/2023 Zoster Vaccines Completed 05/07/2023, 06/02/2023, 07/25/2017 HIB Vaccines Aged Out No longer eligi [...] patient's age to complete this topic Meningococcal B Vaccine Aged Out No l onger eligible based on patient's age to complete [...] Procedure Name Priority Date/Time Associated Diagnosis Comments XR CHEST 2 VIEWS Routine 05/19/2025 2:01 PM EDT Dry cough POCT GLYCATED HEMOGLOBIN, TOTAL Routine 05/18/2025 3:05 PM EDT Type 2 diabetes mellitus without complication, without long-term current use of insulin ([facility]) POCT GLUCOSE Routine 05/18/2025 3:03 PM EDT Type 2 diabetes mellitus without complication, without long-term current use of insulin (CMS/HCC) BI MAMMOGRAM SCREENING TOMOSYNTHESIS BILATERAL Routine 08/19/2023 2:46 PM EST LIPID PANEL, STANDARD Routine 07/23/2023 9:33 AM EDT Type 2 diabetes mellitus without complication, without long-term current use of insulin (CMS/HCC) PAP SMEAR Routine 04/09/2023 1:25 PM EDT HEPATITIS C AB W/REFL TO HCV RNA, QN, PCR Routine 02/07/2023 8:36 AM EDT Health care maintenance ALBUMIN, RANDOM URINE W/CREATININE Routine 03/23/2021 10:13 AM EDT from Last 3 Months or Most Recently Relevant to Health Maintenance Results * XR Chest 2 Views (05/19/2025 2:01 PM EDT) Anatomical Region Laterality Modality Chest Radiographic Laurne ging 05/19/2025 2:01 PM EDT Narrative 05/19/2025 3:01 PM EDT [address] [address] XRay Report Signed Patient: Laura Arellano MR#: [id number] 7 : 1955 Acct:[id number] Age/Sex: 70 / F ADM Date: 05/19/25 Loc: HO.HHCX Attending Dr: Barbara Donahue MD Ordering Physician: Barbara Breen MD Date of Service: 05/19/25 Procedure(s): XR chest 2V Accession Number(s): [id number] cc: Barbara Breen MD EXAMINATION: XR CHEST CLINICAL INFORMATION: 1 mo of onging dry mouth COMPARISON: Chest x-ray 02/20/2021 TECHNIQUE: 2 views of the chest were obtained. FINDINGS: Lungs are well-expanded and clear. The heart size and pulmonary vascularity is normal. No gross bony abnormality. XR/XR chest 2V IMPRESSION: Unremarkable chest examination. Electronically signed by: Joel Calloway MD 05/19/2025 02:58 PM EDT RP Dictated By: Joel Calloway MD Signed By: <Electronically signed by Joel Calloway MD in OV> 05/19/25 1458 DD/ 1401 TD/TT: 05/19/25 142 Precision Farming Specialist: [facility] Procedure Note Donotuseinterpreter, Image - 05/19/[address] [address] XRay Report Signed Patient: Laura Arellano EMR#: [id number] 7 : 1955cct:[id number] Age/Sex: 70 / FADM Date: 05/19/25 Loc: .HHCX Attending Dr: Barbara Donahue MD Ordering Physician: Barbara Breen MD Date of Service: 05/19/25 Procedure(s): XR chest 2V Accession Number(s): [id number] cc: Barbara Breen MD EXAMINATION: XR CHEST CLINICAL INFORMATION: 1 mo of onging dry mouth COMPARISON: Chest x-ray 02/20/2021 TECHNIQUE: 2 views of the chest were obtained. FINDINGS: Lungs are well-expanded and clear. The heart size and pulmonary vascularity is normal. No gross bony abnormality. XR/XR chest 2V IMPRESSION: Unremarkable chest examination. Electronically signed by: Joel Calloway MD 05/19/2025 02:58 PM EDT RP Dictated By: Joel Calloway MD Signed By: <Electronically signed by Joel Calloway MD in OV> 05/19/25 1458 DD/ 1401 TD/TT: 05/19/25 142 Precision Farming Specialist: [facility] us Barbara Donahue MD IMG XR PROCEDURES Final Result * (ABNORMAL) POCT HGB A1C (05/18/2025 3:05 PM EDT) Hemoglobin A1C 8.4(A) 4.0 - 5.7 % QC Media Lot # [id number] Lot# Expiration Date 162,027 Blood 05/18/2025 3:05 PM EDT Barbara Donahue MD POINT OF CARE LIT T ENTER/EDIT ORDERABLES Final Result * POCT Glucose (05/18/2025 3:03 PM EDT) Glucose Blood, POC 166 60 - 200 mg/dL QC Media Lot # [id number] Lot# Expiration Date 025,026 Blood Capillary blood specimen / Unknown 05/18/2025 3:03 PM EDT Barbara Donahue MD POINT OF CARE LIT T ENTER/EDIT ORDERABLES Final Result * BI Mammogram Screening Tomosynthesis Bilateral (08/19/2023 2:46 PM EST) Anatomical Region Laterality Modality Breast Bilateral Mammography 08/19/2023 2:46 PM EST Narrative 09/05/2023 7:34 AM EST [facility] [address] [place] [address] Mammography Report Signed Patient: Laura Arellano MR#: [id number] 7 : 1955 Acct:[id number] Age/Sex: 68 / F ADM Date: 08/19/23 Loc: HO.MAMMO Attending Dr: Milton Martin MD Ordering Physician: Barbara Breen MD Re sults: 1Negative Date of Service: 08/19/23 Follow Up: 1 Year From Orig inal Mammogram Procedure(s): MM tomosynthesis screening BI Accession Number(s): [id number] cc: Barbara Breen MD EXAMINATION: MM SCREENING [...] in OV> 09/05/23 0730 DD/ 1446 TD/TT: Precision Farming Specialist: Procedure Note Donotuseinterpreter, Image - 09/05/2023 [facility] [address] [place] [address] Mammography Report Signed Patient: Laura Arellano EMR#: [id number] 7 : 7Acct:[id number] Age/Sex: 68 / FADM Date: 08/19/23 Loc: JACINTO Attending Dr: Milton Martin MD Ordering Physician: Barbara Breen sults: 1Negative Date of Service: 08/19/23Follow Up: 1 Year From Orig ina Mammogram Procedure(s): MM tomosynthesis screening BI Accession Number(s): [id number] cc: Barbara Breen MD EXAMINATION: MM SCREENING [...] Williamson MD Signed By: <Electronically signed by Stehpanie Williamson MD in OV> 09/05/23729 DD/ 144 TD/TT: Precision Farming Specialist: Barbara Donahue MD IMG BI PROCEDURES Final Result * Lipid Panel, Standard (07/23/2023 9:33 AM EDT) Triglycerides 102 <150 mg/dL [facility] Comment:Desirable Triglyceri de: less than 150 mg/dLBorderline High Triglyceride 150-199 mg/dLHigh Triglyceride: 200-499 mg/dLVery High Triglyceride: greater than or equal to 5OO mg/dL Cholesterol 130 <200 mg/dL [facility] Comment:Desirable Cholestero l: less than 200 mg/dLBorderline High Cholesterol: 200-239 mg/dLHigh Cholesterol: greater than 239 mg/dL LDL Cholesterol Calculated 51 <100 mg/dL [facility] Comment:Desirable LDL: less than 100 mg/dLNear Optimal/Above Optimal LDL: 110- 129 mg/dLBorderline High LDL: 130-159 mg/dLHigh LDL: 160-189 mg/dLVery High LDL: greater than or equal to 190 mg/dL HDL Cholesterol 59 >40 mg/dL [facility] Comment:Desirable HDL: great er than 40 mg/dL Note: This HDL assay may give artificially low results in patients with liver disease. Blood Venous blood specimen / Unknown 07/23/2023 9:33 AM EDT 07/23/2023 11:23 AM EDT us Barbara Donahue MD LAB BLOOD ORDERAB LES Final Result [facility] [address] [place] [phone] * Pap Smear (04/09/2023 1:25 PM EDT) 04/09/2023 1:25 PM EDT 04/11/2023 10:00 AM EDT Narrative [facility] - 05/03/2023 10:26 AM EDT ----- ------- Name: Laura Arellano Age/Sex: 68/F : 1955 Unit#: [id number] Attend Dr: Kimmy Love CNM Re04/09/23 Status: DEP REF Location: [facility] Disch: ----- ------- SPEC : [id number] RECD: 04/11/23-999 STATUS: CASA CASTRO NUM: [id number] YUKI: 04/09/23-1325 [facility] DR: Kimmy Love CNM ENTERED: 04/11/23-1047 SP TYPE: Pap Smr OTHR DR: Barbara Breen MD ORDERED: Pap Smear Interpretation Satisfactory for evaluation. Mild inflammation. Negative for intraepithelial lesion or malignancy. HPV mRNA E6/E7: NOT DETECTED This assay detects E6/E7 viral messenger RNA (mRNA) from 14 high-risk HPV types (16, 18, 31, 33, 35, 39, 45, 51, 52, 56, 58, 59, 66, 68) HPV testing performed by [facility], [place], [place]. See reference laboratory pion of the EMR for entire report. Clinical Information LMP: Menopausal Previous PAP test: 2017, Abnormal Other surgery: Leep 2014 SWATHI II Material Received ThinPrep-Cervical Copies To: Kimmy Love [address] [place] [address] Barbara Breen MD [address] [place], [place] [phone] ----- ------- Signed (signature on file) LATASHA Manley ([facility]) 05/03/23 1026 ----- ------- END OF REPORT us [facility] External Provider LAB CYT OLJORGE L ORDERABLES Final Result [facility] [address] [place], [place] [phone] * Hepatitis C Antibody with Reflex to HCV, RNA, Quantitative, Real-Time PCR (02/07/2023 8:36 AM EDT) Hepatitis C Antibody NON-REACT JUAN NON-REACT JUAN [facility] [place] [employer] 7t Index 0.10 <1.00 [facility] [place] [employer] Comment: HCV antibody was non-reactive. There is no laboratory evidence of HCV infection. In most cases, no further action is required. However, if recent HCV exposure is suspected, a test for HCV RNA (test code 60144) is suggested. For additional information please refer to http://education.Travel Appeal/faq/ZTC37t4 (This link is being provided for informational/ educational purposes only.) Blood Venous blood specimen / Unknown 02/07/2023 8:36 AM EDT 02/07/2023 8:37 AM EDT Narrative [facility] - 02/12/2023 12:57 AM EDT FASTING:YES COLLECTION KIT GIVEN TO PATIENT. PATIENT ADVISED TO RETURN. FASTING: YES us Barbara Donahue MD LAB BLOOD ORDERAB LES Final Result Performing Organization Address [facility] Co de Phone Number [facility] [address], [place] [address] [facility] [place] [employer] [address] [place] [phone] * ALBUMIN, RANDOM URINE W/CREATININE (03/23/2021 10:13 AM EDT) [facility] Microalbumin Urine 0.3 See Note: mg/dL [facility] Comment: Reference Range: Reference Range Not established Microalb/Creat Ratio 8 <30 mcg/mg creat [facility] Comment: The ADA defines abnormalities in albumin excretion as follows: Category Result (mcg/mg creatinine) Normal <30 Microalbuminuria 30-299 Clinical albuminuria > OR = 300 The ADA recommends that at least two of three specimens collected within a 3-6 month period be abnormal before considering a patient to be within a diagnostic category. Creatinine, Urine 37 20 - 275 mg/dL [facility] 03/23/2021 10:1 3 AM EDT us Milton Martin MD LAB URINE ORDERABLES Final R esult Performing Organization Address [facility] Co de Phone Number [facility] [address] [place] [address], from Last 3 Months or Most Recently Relevant to Health Maintenance Insurance [place] [place] [address] [facility] Care Teams Lockstitch Cup Setter Relationship Specialty Start Date End Date Barbara Breen MD [address] [place] [phone] PCP - General Internal Medicine 01/15/23
--- OUTSIDE RECORDS SUMMARY | 2025-06-01 16:26 | XMS_ITS | Encounter Summary ---
Author Organization [employer] Address [address] [place] [address] 7 [place] [address] Care Team Providers Care Electrician Wiring Name Role Phone Barbara Breen MD Primary Care Pro vider Reason for Visit * Reason Comments Med Refill Encounter Details Date Type Department Care Team (Late Contact Info) Description 03/28/2023 Refill [facility] MEDICINE [address] [place] [phone] Barbara Breen MD [address] [place] [phone] Social History Tobacco Use Types Packs/Day Years [...] Description 07/22/2025 11:15 AM EDT Office Visit [facility] MEDICINE [address] [place] [address] Barbara Breen MD [address] [place], [place] [phone] documented as of this encounter Visit Diagnoses Not on filedocumented in this encounter Additional Health Concerns Assessment Noted Time PHQ-9 Depression Total Score: 1 02/06/20 10:09 AM EDT documented as of this encounter Care Teams Electrician Wiring Relationship Specialty Start Date End Date Barbara Breen MD [address] [place] [address] PCP - General Internal Medicine 01/15/23 documented as of this encounter
--- OUTSIDE RECORDS SUMMARY | 2025-06-01 16:26 | XMS_ITS | Encounter Summary ---
Author Organization [employer] Address [address] [place] [address] 7 [place] [address] Care Team Providers Care Supervisor Plastic Sheets Name Role Phone Brabara Breen MD Primary Care Pro vider Reason for Visit * Reason Comments Med Change Request Encounter Details Date Type Department Care Team ([facility] Contact Info) Description 08/09/2023 Refill [facility] MEDICINE [address] [place] [address] Barbara Breen MD [address] [place] [address] Social History Tobacco Use Types Packs/Day Years [...] Description 07/22/2025 11:15 AM EDT Office Visit [facility] MEDICINE [address] [place] [address] Barbara Breen MD [address] [place] [address] documented as of this encounter Visit Diagnoses Not on filedocumented in this encounter Additional Health Concerns Assessment Noted Time PHQ-9 Depression Total Score: 1 02/06/20 10:09 AM EDT documented as of this encounter Care Teams Supervisor Plastic Sheets Relationship Specialty Start Date End Date Barbara Breen MD [address] [place] [address] PCP - General Internal Medicine 01/15/23 documented as of this encounter
== END 2025-06-01 16:18 | disposition home or self-care (01) ==
LOC: HO.HKA 15:19
PROVIDERS: PCP Student in an Organized Health Care Education/Training Program; Referring Provider Student in an Organized Health Care Education/Training Program; Visit Provider Internal Medicine Critical Care Medicine
DX: I10 Essential (primary) hypertension (principal); E55.9 Vitamin D deficiency, unspecified
CPT/HCPCS: 99204

== ENCOUNTER → 2025-06-01 15:18 | Outpatient (BNVA) | payer OTHER, SELFPAY | PROVIDERS: PCP Student in an Organized Health Care Education/Training Program; Referring Provider Student in an Organized Health Care Education/Training Program; Visit Provider Internal Medicine Critical Care Medicine | DX: I10 Essential (primary) hypertension (principal); E55.9 Vitamin D deficiency, unspecified; E03.9 Hypothyroidism, unspecified | CPT/HCPCS: 99202 ==

== ENCOUNTER 2025-06-02 09:04 | Outpatient (REF) | payer MEDICARE, SELFPAY ==
--- OUTSIDE RECORDS SUMMARY | 2025-06-02 09:45 | XMS_ITS | Encounter Summary ---
Author Organization [employer] Address [address] [place] [address] 7t [place] [address] Care Team Providers Care Lab Analyst Name Role Phone Dede Child ADVERTISING COPYWRITER Primary Care Provider [phone] Barbara Breen MD Primary Care Pro vider Reason for Visit * Reason Onset Date Comments Med Refill 10/26/2022 Encounter Details Date Type Department Care Team (Late st Contact Info) Description 10/26/2022 Refill [facility] MEDICINE [address] [place] [phone] Milton Martin MD Type 2 diabetes mellitus with hyperosmolarity without coma, without long-term current use of insulin ([facility]) (Primary Dx); Primary hypertension; Hypothyroidism, unspecified type [...] Description 07/22/2025 11:15 AM EDT Office Visit [facility] MEDICINE [address] [place] [address] Barbara Breen MD 230 [place], [place] [phone] documented as of this encounter Visit Diagnoses Diagnosis Type 2 diabetes mellitus with hyperosmolarity without coma, without long-term current use of insulin ([facility])- Primary Primary hypertension Unspecified essential hypertension Hypothyroidism, unspecified type documented in this encounter Care Teams Lab Analyst Relationship Specialty Start Date End Date Dede Child FNP [address] [place], [place] [phone] PCP - General Family Medicine 10/26/22 01/14/23 Barbara Breen MD [address] [place] [address] [phone] PCP - General Internal Medicine 01/15/23 documented as of this encounter
--- OUTSIDE RECORDS SUMMARY | 2025-06-02 09:45 | XMS_ITS | Clinical Summary ---
Author Organization [employer] Address [address] [facility] 7t [place] [address] Care Team Providers Care Abrading Machine Tender Name Role Phone Barbara Breen MD Primary Care Pro vider Allergies Active Allergy Reactions Criticality Noted Date Comments Nifedipine Rash Low 08/23/2021 Medications FreeStyle lancetsIndications :Type 2 diabetes mellitus with hyperosmolarity without coma, without long-term current use of insulin ([facility]) CHECK BY FINGERSTICK ROUTE 3 TIMES EVERY DAY 100 each 11 023 Active glucose blood (Supply VisionTouch Verio) test stripIndications:T ype 2 diabetes mellitus with hyperosmolarity without coma, without long-term current use of insulin ([facility]) Test blood sugar 3 times a day 100 strip 11 023 Active Blood Glucose Monitoring Suppl (OneTouch Verio Flex System) w/Device kitIndications:Typ e 2 diabetes mellitus with hyperosmolarity without coma, without long-term current use of insulin ([facility]) Test blood sugars 3 times a day 1 kit 023 Active OneTouch Delica Lancets 33G miscIndications:Ty pe 2 diabetes mellitus with hyperosmolarity without coma, without long-term current use of insulin ([facility]) Teas blood sugars 3 times a day [...] DAY PLEASE CALL FOR CARDIOLOGY FOLLOW UP [facility]- [phone] Active levothyroxine (Synthroid, Levoxyl) 75 MCG tabletIndications: [...] 16 g 025 2024 Active sodium chloride (Pine) 0.65 % nasal spray Administer 1 spray [...] at this time for further testing [facility] maintenance 02/05/2023 Assessment & Plan (03/28/2023 5:56 PM EDT): -menopause : 56y of age -pap smear:2020 neg per pt--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/09/23 -MM: 07/2022 : [...] -pap smear:2020 neg per pt--pt f w DEBUR[employer]ING [employer] 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 at [facility]-pt states will schedule apt w them [...] -pap smear:2020 neg per pt--pt f w DEBURRING [employer] 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 at [facility]-pt states will schedule apt w them [...] diet and exercise,discussed healthy life style -discussed concrete stone fabricating supervisor referral but wants t hold x now -Will discuss w pt about consider low dose trulicity at her next apt x DM and obesity Assessment & Plan (03/05/2023 3:17 PM EDT): Advised pt to improve diet and exercise,discussed healthy life style -discussed concrete stone fabricating supervisor referral but wants t hold x now Assessment & Plan (02/05/2023 12:35 PM EDT): Advised pt to improve diet and exercise,discussed healthy life style -discussed concrete stone fabricating supervisor referral but wants t hold x now [...] -last 3 y ago-normal per pt-referred already -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 -will refer at next visit if uncontrol result -DM labs in 6 mo -aprox 08/2023 Assessment & Plan (03/05/2023 3:16 PM EDT): Mentioned hx of DM -controlled w meds 01/2023 Hb1AC Is 5.9, LDL 64, Microalb neg Not tolerated metformin before -life style changes advised -ophthalmology -lat 3 y ago-normal per pt-referred already -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 -will refer at next visit if uncontrol result -DM labs in 6 mo Assessment & Plan (02/05/2023 12:33 PM EDT): Mentioned hx of DM -controlled w meds -will do fasting labs -ophthalmology -lat 3 y ago-normal per pt-referred today -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 -will refer at next visit if uncontrol [...] Type Department Care Team Description 05/26/2025 Telephone [facility] MEDICINE [address] [place] [phone] Barbara Breen MD Prior Authorization (Irma) 05/19/2025 Results Follow-Up [address] [address] Barbara Breen MD XR Chest 2 Views 05/18/2025 2:15 PM EDT Office Visit [address] [address] Barbara Breen MD Breast cancer screening by mammogram (Primary Dx); Postmenopausal; Type 2 diabetes mellitus without complication, without long-term current use of insulin ([facility]); Uncontrolled hypertension; Dietary counseling; Exercise counseling; Annual physical exam; Dry cough; Encounter for immunization; Essential hypertension; Acquired hypothyroidism; Obesity (BMI 30.0-34.9); Elevated bilirubin; Heartburn; Health care maintenance; Memory loss 05/18/2025 Travel 05/12/[address] [address] Barbara Breen MD Other hyperlipidemia 04/11/[address] [address] Barbara Breen MD Hypothyroidism, unspecified type from [...] the past 12 months, has t he Cub[employer], gas, oil or water company threatened to [...] Description 07/22/2025 11:15 AM EDT Office Visit [facility] MED[facility] [address] [place] [address] [phone] Barbara Breen MD [address] [place], [place] [phone] Health Maintenance Due Date Last Done Comments [...] complication, without long-term current use of insulin ([facility]) POCT GLUCOSE Routine 05/18/2025 3:03 PM EDT [...] EDT) Anatomical Region Laterality Modality Chest Radiographic Lauren ging 05/19/2025 2:01 PM EDT Narrative 05/19/2025 3:01 PM EDT [address] [address] XRay Report Signed Patient: Laura Arellano MR#: [id number] 7 : 1955 Acct:[id number] Age/Sex: 70 / F ADM Date: 05/19/25 Loc: HO.HHCX Attending Dr: Barbara Donahue MD Ordering Physician: Barbara Breen MD Date of Service: 05/19/25 Procedure(s): XR chest 2V Accession Number(s): [id number] cc: Barbara Breen MD EXAMINATION: XR CHEST [...] 05/19/25 1458 DD/ 1401 TD/TT: 05/19/25 142 Turning Lathe Tender: [facility] Procedure Note Donotuseinterpreter, Image - 05/19/[address] [address] XRay Report Signed Patient: Laura Arellano EMR#: [id number] 7 : 1955cct:[id number] Age/Sex: 70 / FADM Date: 05/19/25 Loc: .HHCX Attending Dr: Barbara Donahue MD Ordering Physician: Barbara Breen MD Date of Service: 05/19/25 Procedure(s): XR chest 2V Accession Number(s): [id number] cc: Barbara Breen MD EXAMINATION: XR CHEST [...] 05/19/25 1458 DD/ 1401 TD/TT: 05/19/25 142 Turning Lathe Tender: [facility] us Barbara Donahue MD IMG XR PROCEDURES [...] Media Lot # [id number] Lot# Expiration Date [id number] Blood Capillary blood specimen / Unknown 05/18/2025 3:03 PM EDT Barbara Donahue MD POINT OF CARE LIT T ENTER/EDIT ORDERABLES Final Result * BI Mammogram Screening Tomosynthesis Bilateral (08/19/2023 2:46 PM EST) Anatomical Region Laterality Modality Breast Bilateral Mammography 08/19/2023 2:46 PM EST Narrative 09/05/2023 7:34 AM EST [facility] [address] [place] [address] Mammography Report Signed Patient: Laura Arellano MR#: [id number] 7 : 1955 Acct:[id number] Age/Sex: 68 / F ADM Date: 08/19/23 Loc: HO.MAMMO Attending Dr: Milton Martin MD Ordering Physician: Barbara Breen MD Re sults: 1Negative Date of Service: 08/19/23 Follow Up: 1 Year From Orig inal Mammogram Procedure(s): MM tomosynthesis screening BI Accession Number(s): [id number] cc: Barbara Brene MD EXAMINATION: MM SCREENING DIGITAL BREAST TOMOSYNTHESIS, [...] in OV> 09/05/23 0730 DD/ 1446 TD/TT: Turning Lathe Tender: Procedure Note Donotuseinterpreter, Image - 09/05/2023 [facility] [address] [place] [address] Mammography Report Signed Patient: Laura Arellano EMR#: [id number] 7 : 7Acct:[id number] Age/Sex: 68 / FADM Date: 08/19/23 Loc: JACINTO Attending Dr: Milton Martin MD Ordering Physician: Barbara Breen sults: 1Negative Date of Service: 08/19/23Follow Up: 1 Year From Orig ina Mammogram Procedure(s): MM tomosynthesis screening BI Accession Number(s): [id number] cc: Barbara Breen MD EXAMINATION: MM SCREENING [...] signed by Stephanie Williamson MD in OV> 09/05/23729 DD/ 144 TD/TT: Turning Lathe Tender: Barbara Donahue MD IMG BI PROCEDURES Final Result * Lipid Panel, Standard (07/23/2023 9:33 AM EDT) Triglycerides 102 <150 mg/dL [facility] Comment:Desirable Triglyceri de: less than 150 mg/dLBorderline High Triglyceride 150-199 mg/dLHigh Triglyceride: 200-499 mg/dLVery High Triglyceride: greater than or equal to 5OO mg/dL Cholesterol 130 <200 mg/dL [facility] Comment:Desirable Cholestero l: less than 200 mg/dLBorderline High Cholesterol: 200-239 mg/dLHigh Cholesterol: greater than 239 mg/dL LDL Cholesterol Calculated 51 <100 mg/dL [facility] Comment:Desirable LDL: less than 100 mg/dLNear Optimal/Above Optimal LDL: 110- 129 mg/dLBorderline High LDL: 130-159 mg/dLHigh LDL: 160-189 mg/dLVery High LDL: greater than or equal to 190 mg/dL HDL Cholesterol 59 >40 mg/dL [facility] Comment:Desirable HDL: great er than 40 mg/dL Note: This HDL assay may give artificially low results in patients with liver disease. Blood Venous blood specimen / Unknown 07/23/2023 9:33 AM EDT 07/23/2023 11:23 AM EDT us Barbara Donahue MD LAB BLOOD ORDERAB LES Final Result [facility] [address] [place] [phone] * Pap Smear (04/09/2023 1:25 PM EDT) 04/09/2023 1:25 PM EDT 04/11/2023 10:00 AM EDT Narrative [facility] - 05/03/2023 10:26 AM EDT ----- ------- Name: Laura Arellano Age/Sex: 68/F : 1955 Unit#: [id number] Attend Dr: Kimmy Love CNM Re04/09/23 Status: DEP REF Location: [facility] Disch: ----- ------- SPEC : [id number] RECD: 04/11/23-999 STATUS: CASA CASTRO NUM: [id number] YUKI: 04/09/23-13[address] [facility] [address]: Kimmy Love CNM ENTERED: 04/11/23-1047 SP [...] 61, 68, 70) HPV testing performed by [employer], [place], [place]. See reference laboratory pion of the EMR for entire report. Clinical Information LMP: Menopausal Previous PAP test: 2017, Abnormal Other surgery: Leep 2014 SWATHI II Material Received ThinPrep-Cervical Copies To: Kimmy Love [address] [place] [address] Barbara Breen MD [address] [place], [place] [phone] ----- ------- Signed (signature on file) LATASHA Manley ([facility]) 05/03/23 1026 ----- ------- END OF REPORT us [facility] External Provider LAB CYT OLJORGE L ORDERABLES Final Result [facility] [address] [place], [place] [phone] * Hepatitis C Antibody with Reflex to HCV, RNA, Quantitative, Real-Time PCR (02/07/2023 8:36 AM EDT) Hepatitis C Antibody NON-REACT JUAN NON-REACT JUAN [employer] [place] [employer] Index 0.10 <1.00 [employer] [place] [facility] Comment: HCV antibody was non-reactive. There is no laboratory evidence of HCV infection. In most cases, no further action is required. However, if recent HCV exposure is suspected, a test for HCV RNA (test code 63205) is suggested. For additional information please refer to http://education.[employer]/faq/RAH47y6 (This link is being provided for informational/ educational purposes only.) Blood Venous blood specimen / Unknown 02/07/2023 8:36 AM EDT 02/07/2023 8:37 AM EDT Narrative [facility] - 02/12/2023 12:57 AM EDT FASTING:YES COLLECTION KIT GIVEN TO PATIENT. PATIENT ADVISED TO RETURN. FASTING: YES us Barbara Donahue MD LAB BLOOD ORDERAB LES Final Result Performing Organization Address [facility] Co de Phone Number [facility] [address], [place] [address] [employer] [place] [facility] [address] [place] [phone] * ALBUMIN, RANDOM URINE W/CREATININE (03/23/2021 10:13 AM EDT) [facility] Microalbumin Urine 0.3 See Note: mg/dL [facility] [...] ORDERABLES Final R esult Performing Organization Address [facility] Co de Phone Number [facility] [address] [place] [address], from Last 3 Months or Most Recently Relevant to Health Maintenance [place] [address] [place] [address] [facility] Care Teams Abrading Machine Tender Relationship Specialty Start Date End Date Barbara Breen MD [address] [place] [phone] PCP - General Internal Medicine 01/15/23
--- OUTSIDE RECORDS SUMMARY | 2025-06-02 09:45 | XMS_ITS | Encounter Summary ---
Author Organization [employer] Address [address] [place] [address] 7 [place] [address] Care Team Providers Care Finance Professional Name Role Phone Barbara Breen MD Primary Care Pro vider Reason for Visit * Reason Comments Med Change Request Encounter Details Date Type Department Care Team ([facility] Contact Info) Description 08/09/2023 Refill [facility] MEDICINE [address] [place] [address] Barbara Breen MD [address] [place] [address] Social History Tobacco Use Types Packs/Day Years [...] Description 07/22/2025 11:15 AM EDT Office Visit [facility] MEDICINE [address] [place] [address] Barbara Breen MD [address] [place] [phone] documented as of this encounter Visit Diagnoses Not on filedocumented in this encounter Additional Health Concerns Assessment Noted Time PHQ-9 Depression Total Score: 1 02/06/20 10:09 AM EDT documented as of this encounter Care Teams Finance Professional Relationship Specialty Start Date End Date Barbara Breen MD [address] [place] [phone] PCP - General Internal Medicine 01/15/23 documented as of this encounter
--- OUTSIDE RECORDS SUMMARY | 2025-06-02 09:45 | XMS_ITS | Encounter Summary ---
Author Organization [employer] Address [address] [place] [address] 7 [place] [address] Care Team Providers Care Project Facilitator Name Role Phone Barbara Breen MD Primary Care Pro vider Reason for Visit * Reason Comments Med Refill Encounter Details Date Type Department Care Team ([facility] Contact Info) Description 08/15/2024 Refill [facility] MEDICINE [address] [place] [address] Barbara Breen MD [address] [place] [address] Other hyperlipidemia Social History Tobacco Use Types [...] t he electric, gas, oil or water [employer] threatened to shut off services in your [...] 07/22/2025 11:15 AM EDT Office Visit [facility] MEDICINE [address] [place] [phone] Barbara Breen MD [address] [place] [phone] documented as of this encounter Visit Diagnoses Diagnosis Other hyperlipidemia documented in this encounter Additional Health Concerns Assessment Noted Time PHQ-9 Depression Total Score: 1 02/06/20 23 10:09 AM EDT documented as of this encounter Care Teams Project Facilitator Relationship Specialty Start Date End Date Barbara Breen MD [address] [place] [address] [phone] PCP - General Internal Medicine 01/15/23 documented as of this encounter
--- OUTSIDE RECORDS SUMMARY | 2025-06-02 09:45 | XMS_ITS | Encounter Summary ---
Author Organization [employer] Address [address] [place] [address] [place] [address] Care Team Providers Care Stapler Coil Unit Name Role Phone Dede Child [facility] Primary Care Provider [phone] Barbara Breen MD Primary Care Pro vider Reason for Visit * Reason Comments Med Change Request Encounter Details Date Type Department Care Team (Late Contact Info) Description 10/26/2022 Refill [facility] MEDICINE [address] [place] [address] Dede Child FNP [address] [place] [address] Controlled type 2 diabetes mellitus without complication, without long-term current use of insulin ([facility]) (Primary Dx); Type 2 diabetes mellitus with hyperosmolarity without coma, without long-term current use of insulin ([facility]) Social History Tobacco Use Types Packs/Day Years [...] Description 07/22/2025 11:15 AM EDT Office Visit [facility] MEDICINE [address] [place] [address] Barbara Breen MD [address] [place], [place] [phone] documented as of this encounter Visit Diagnoses Diagnosis Controlled type 2 diabetes mellitus without complication, without long-term current use of insulin (CMS/HCC)- Primary Type 2 diabetes mellitus with hyperosmolarity without coma, without long-term current use of insulin (CMS/HCC) documented in this encounter Care Teams Stapler Coil Unit Relationship Specialty Start Date End Date Dede Child FNP [address] [place] [address] PCP - General Family Medicine 10/26/22 01/14/23 Barbara Breen MD [address] [place] [address] PCP - General Internal Medicine 01/15/23 documented as of this encounter
--- OUTSIDE RECORDS SUMMARY | 2025-06-02 09:45 | XMS_ITS | Encounter Summary ---
Author Organization [employer] Address [address] [place] [address] 7 [place] [address] Care Team Providers Care Yard Supervisor Name Role Phone Barbara Breen MD Primary Care Pro vider Reason for Visit * Reason Comments Med Refill Encounter Details Date Type Department Care Team (Late Contact Info) Description 03/28/2023 Refill [facility] MEDICINE [address] [place] [address] Barbara Breen MD [address] [place] [phone] Social History Tobacco Use Types Packs/Day Years [...] Description 07/22/2025 11:15 AM EDT Office Visit [facility] MEDICINE [address] [place] [address] Barbara Breen MD [address], [place] [phone] documented as of this encounter Visit Diagnoses Not on filedocumented in this encounter Additional Health Concerns Assessment Noted Time PHQ-9 Depression Total Score: 1 02/06/20 10:09 AM EDT documented as of this encounter Care Teams Yard Supervisor Relationship Specialty Start Date End Date Barbara Breen MD [address] [place] [address] PCP - General Internal Medicine 01/15/23 documented as of this encounter
[2025-06-02 10:21] LABS: Hemoglobin A1C 302.6022 umol/L; Total Hemoglobin (HGBA1C) 3888.9969 umol/L
[2025-06-02 10:36] LABS: Appearance Urine Clear; Glucose Urine UA >=1000 mg/dL (Negative); PH 6.5 (5.0-9.0); Specific Gravity - Urine >= 1.030 (1.005-1.025); UMIC TRIGGER UA YES
[2025-06-02 10:55] LABS: Parathyroid Hormone Intact 106.9 pg/mL (8.7-77.1)
[2025-06-02 10:58] LABS: Anion Gap 13 (12-20); Blood Urea Nitrogen 15 mg/dL (9-16); Calcium 10.1 mg/dL (8.4-10.2); Carbon Dioxide 27 mmol/L (22-29); Chloride 104 mmol/L (96-108); Cholesterol 134 mg/dL (<200); Estimated Glomerular Filt Rate 60; HDL Cholesterol 48 mg/dL (>40); Magnesium 1.8 mg/dL (1.6-2.6); Potassium 3.9 mmol/L (3.3-5.1); Sodium 140 mmol/L (135-145); Triglycerides 116 mg/dL (<150)
[2025-06-02 11:07] LABS: Microalbum/Creatinine Ratio Ur 5.3 ug/mg cr (<30); Total Protein Urine Random < 7 mg/dL (<12)
[2025-06-08 13:39] LABS: Plasma Renin Activity 0.84 ng/mL/h (0.25-5.82)
== END 2025-06-02 09:05 | disposition home or self-care (01) ==
LOC: HO.LAB 09:04
PROVIDERS: PCP Student in an Organized Health Care Education/Training Program; Visit Provider Internal Medicine Critical Care Medicine
DX: Z13.1 Encounter for screening for diabetes mellitus (principal); I10 Essential (primary) hypertension; E55.9 Vitamin D deficiency, unspecified
CPT/HCPCS: 36415; 80048; 80061; 81001; 82043; 82088; 82306; 82570; 83036; 83735; 83970; 84133; 84156; 84443; 93786; 93788

== ENCOUNTER → 2025-06-03 16:26 | Outpatient (AMB) | payer MEDICARE, SELFPAY ==
--- NOTE | 2025-06-03 16:26 | HO.NEPHOV_ITS ---
Intake Visit Reasons: BPM Results Allergies nifedipine Allergy (Mild, Verified 06/01/25 15:38) Unknown HPI Comments Details: Called the patient over her cell phone. Results of the 24 hour ambulatory blood pressure monitoring was discussed Average blood pressures 128/75, while awake 133/79 and while asleep 109/63. Daytime blood pressures are falsely elevated as patient had to come to the lab for blood draws and had to run across the buildings to get the blood draw done between 9 and 10:30 a.m. during which her blood pressure is elevated to 150 systolics to 180 systolic. When she was done and relaxing at home her blood pressure was back to baseline around 120-130 mm Hg. In the afternoon when she went for walk again blood pressure increased to 170 systolic. She takes losartan 100 mg in a.m., spironolactone 12.5 mg in a.m. and metoprolol 25 mg 2 times a day. Her labs were also discussed. Urinalysis, BMP and rest of the labs were normal except for her HbA1c was 9.3, random glucose was 239. Patient was previously on metformin 3 years ago which was taken off, currently only on Mounjaro. [facility] Medical History GERD (gastroesophageal reflux disease) Type 2 diabetes mellitus Hypothyroid Elevated cholesterol High blood pressure Surgical History History of laparoscopic cholecystectomy (04/11/23) History of loop electrical excision procedure (LEEP) Hx of dilation and curettage H/O colonoscopy Family History Father Prostate cancer Sister History of breast cancer BRCA negative Family/Other Colon cancer Social History Household Members: Spouse Alcohol intake: current Alcohol intake frequency: holidays/special occasions only Patient Tobacco Use Status: Never used Tobacco Sexual orientation: Straight/Heterosexual Gender identity: Female Review of Systems Const Details: Const : no body aches, no chills, no excessive sweating and no fatigue Eyes: no blurry vision and no change in vision ENT: no bleeding gums and no change in voice, no dizziness Card: no chest pain, no shortness of breath, no orthopnea, no PND Resp: no cough, no excessive phlegm production, no SOB GI: no abdominal pain and no nausea, no vomiting : no hematuria, no urinary frequency and no difficulty voiding Musc: no abnormal gait, no bone pain Neuro: no abnormal movements, no weakness, no dizziness, no abnormal gait and no behavioral changes Psych: no behavioral changes and no change in appetite Endo: no change in body appearance, no cold intolerance, no excessive sweating and no fatigue Physical Exam Vital Signs: Could not do a physical examination due to telehealth Telehealth Telehealth Telehealth Platform: Telephone Location of provider rendering services: practice address Location of patient: address on file Patient Identification confirmed using: Name, : Yes Telehealth method: voice only Patient verbally consented to treatment: Yes Patient verbally consented to billing insurance company: Yes Patient informed of any privacy concerns related to visit: Yes Results Reviewed Nephrology Results: Sodium, (135-145) 140 mmol/L 06/02/25 Potassium, (3.3-5.1) 3.9 mmol/L 06/02/25 Chloride, (96-108) 104 mmol/L 06/02/25 Carbon Dioxide, (22-29) 27 mmol/L 06/02/25 BUN, (9-16) 15 mg/dL 06/02/25 Creatinine, (0.5-1.4) 0.93 mg/dL 06/02/25 Calcium, (8.4-10.2) 10.1 mg/dL 06/02/25 PTH Intact, (8.7-77.1) 106.9 pg/mL H 06/02/25 Urine Protein, (Neg-Trace) Negative mg/dL 06/02/25 Urine Creatinine 111.82 mg/dL 06/02/25 Assessment & Plan Assessment & Plan (1) Essential hypertension: Code(s): I10 - Essential (primary) hypertension Category: Medical (2) Abnormal echocardiogram findings without diagnosis: Code(s): R93.1 - Abnormal findings on diagnostic imaging of heart and coronary circulation Category: Medical Plan Average blood pressures 128/75, while awake 133/79 and while asleep 109/63. Daytime blood pressures are falsely elevated as patient had to come to the lab for blood draws and had to run across the buildings to get the blood draw done between 9 and 10:30 a.m. during which her blood pressure is elevated to 150 systolics to 180 systolic. When she was done and relaxing at home her blood pressure was back to baseline around 120-130 mm Hg. In the afternoon when she went for walk again blood pressure increased to 170 systolic. Continue losartan 100 mg in a.m., spironolactone 12.5 mg in a.m. and metoprolol 25 mg 2 times a day. Her labs were also discussed. Urinalysis, BMP and rest of the labs were normal except for her HbA1c was 9.3, random glucose was 239. Patient was previously on metformin 3 years ago which was taken off, currently only on Mounjaro. Sent her a prescription for metformin 1000 mg b.i.d. as mounjaro alone would not be able to bring her HbA1c down to normal. Coding Level of Care Code Tele Est Pt Level 3 (04089) Diagnoses Essential hypertension I10 Abnormal echocardiogram findings without diagnosis R93.1
--- OUTSIDE RECORDS SUMMARY | 2025-06-03 16:44 | XMS_ITS | Encounter Summary ---
Author Organization [employer] Address [address] [place] [address] [address] [place] [address] Care Team Providers Care Pattern Cutter Name Role Phone Barbara Breen MD Primary Care Pro vider Reason for Visit * Reason Comments Med Refill Encounter Details Date Type Department Care Team ([facility] Contact Info) Description 08/15/2024 Refill [facility] MEDICINE [address] [place] [address] Barbara Breen MD [address] [place] [address] Other hyperlipidemia Social History Tobacco Use Types [...] t he electric, gas, oil or water [email or web address] threatened to shut off services in your [...] Description 07/22/2025 11:15 AM EDT Office Visit [facility] MEDICINE [address] [place] [phone] Barbara Breen MD [address] [place] [phone] documented as of this encounter Visit Diagnoses Diagnosis Other hyperlipidemia documented in this encounter Additional Health Concerns Assessment Noted Time PHQ-9 Depression Total Score: 1 02/06/20 23 10:09 AM EDT documented as of this encounter Care Teams Pattern Cutter Relationship Specialty Start Date End Date Barbara Breen MD [address] [place] [address] [phone] PCP - General Internal Medicine 01/15/23 documented as of this encounter
--- OUTSIDE RECORDS SUMMARY | 2025-06-03 16:45 | XMS_ITS | Encounter Summary ---
Author Organization [employer] Address [address] [place] [address] [address] [place] [address] Care Team Providers Care Day Care Teacher Name Role Phone Dede Child NOODLE MAKER Primary Care Provider [phone] Barbara Breen MD Primary Care Pro vider Reason for Visit * Reason Onset Date Comments Med Refill 10/26/2022 Encounter Details Date Type Department Care Team (Late st Contact Info) Description 10/26/2022 Refill [facility] MEDICINE [address] [place] [phone] Milton Martin MD Type 2 diabetes mellitus with hyperosmolarity without coma, without long-term current use of insulin ([facility]) (Primary Dx); Primary hypertension; Hypothyroidism, [...] Description 07/22/2025 11:15 AM EDT Office Visit [facility] MEDICINE [address] [place] [address] Barbara Breen MD [address] [place], [place] [phone] documented as of this encounter Visit Diagnoses Diagnosis Type 2 diabetes mellitus with hyperosmolarity without coma, without long-term current use of insulin ([facility])- Primary Primary hypertension Unspecified essential hypertension Hypothyroidism, unspecified type documented in this encounter Care Teams Day Care Teacher Relationship Specialty Start Date End Date Dede Child FNP [address] [place], [place] [phone] PCP - General Family Medicine 10/26/22 01/14/23 Barbara Breen MD [address] [place] [address] [phone] PCP - General Internal Medicine 01/15/23 documented as of this encounter
--- OUTSIDE RECORDS SUMMARY | 2025-06-03 16:45 | XMS_ITS | Clinical Summary ---
Author Organization [employer] Address [address] [facility] 7t [place] [address] Care Team Providers Care Highway Commissioner Name Role Phone Barbara Breen MD Primary Care Pro vider Allergies Active Allergy Reactions Criticality Noted Date Comments Nifedipine Rash Low 08/23/2021 Medications FreeStyle lancetsIndications :Type 2 diabetes mellitus with hyperosmolarity without coma, without long-term current use of insulin ([facility]) CHECK BY FINGERSTICK ROUTE 3 TIMES EVERY DAY 100 each 11 023 Active glucose blood (Ask ZiggyTouch Verio) test stripIndications:T ype 2 diabetes mellitus with hyperosmolarity without coma, without long-term current use of insulin ([facility]) Test blood sugar 3 times a day 100 strip 11 023 Active Blood Glucose Monitoring Suppl (OneTouch Verio Flex System) w/Device kitIndications:Typ e 2 diabetes mellitus with hyperosmolarity without coma, without long-term current use of insulin ([facility]) Test blood sugars 3 times a day 1 kit 023 Active OneTouch Delica Lancets 33G miscIndications:Ty pe 2 diabetes mellitus with hyperosmolarity without coma, without long-term current use of insulin ([facility]) Teas blood sugars 3 times [...] DAY PLEASE CALL FOR CARDIOLOGY FOLLOW UP [facility]- [phone] Active levothyroxine (Synthroid, Levoxyl) 75 MCG tabletIndications: [...] 16 g 025 2024 Active sodium chloride (Keith) 0.65 % nasal spray Administer 1 spray [...] at this time for further testing [facility] maintenance 02/05/2023 Assessment & Plan (03/28/2023 5:56 PM EDT): -menopause : 56y of age -pap smear:2020 neg per pt--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 [facility]-has apt x 04/09/23 -MM: 07/2022 : birads [...] -pap smear:2020 neg per pt--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 [facility]-pt states will schedule apt w them and [...] -pap smear:2020 neg per pt--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 [facility]-pt states will schedule apt w them and [...] diet and exercise,discussed healthy life style -discussed tumbler operator referral but wants t hold x now -Will discuss w pt about consider low dose trulicity at her next apt x DM and obesity Assessment & Plan (03/05/2023 3:17 PM EDT): Advised pt to improve diet and exercise,discussed healthy life style -discussed tumbler operator referral but wants t hold x now Assessment & Plan (02/05/2023 12:35 PM EDT): Advised pt to improve diet and exercise,discussed healthy life style -discussed tumbler operator referral but wants t hold x [...] -last 3 y ago-normal per pt-referred already -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 -will refer at next visit if uncontrol result -DM labs in 6 mo -aprox 08/2023 Assessment & Plan (03/05/2023 3:16 PM EDT): Mentioned hx of DM -controlled w meds 01/2023 Hb1AC Is 5.9, LDL 64, Microalb neg Not tolerated metformin before -life style changes advised -ophthalmology -lat 3 y ago-normal per pt-referred already -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 -will refer at next visit if uncontrol result -DM labs in 6 mo Assessment & Plan (02/05/2023 12:33 PM EDT): Mentioned hx of DM -controlled w meds -will do fasting labs -ophthalmology -lat 3 y ago-normal per pt-referred today -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 -will refer at next visit if uncontrol [...] y ago -normal per pt ---referred already -ZLUEIMA White Checked already in list x apt [...] Encounters Date Type Department Care Team Description 06/02/2025 Results Follow-Up [address] [address] Alissa Miller RN Hemoglobin A1c, Urinalysis Complete 06/02/2025 Orders Only GENERIC EXTERNAL DATA DEPARTMENT Provider, Generic External Data 05/26/[address] [address] Barbara Breen MD Prior Authorization (Irma) 05/19/2025 Results Follow-Up [address] [address] Barbara Breen MD XR Chest 2 Views 05/18/2025 2:15 PM EDT Office Visit [address] [address] Barbara Breen MD Breast cancer screening by mammogram (Primary Dx); Postmenopausal; Type 2 diabetes mellitus without complication, without long-term current use of insulin ([facility]); Uncontrolled hypertension; Dietary counseling; Exercise counseling; Annual physical exam; Dry cough; Encounter for immunization; Essential hypertension; Acquired hypothyroidism; Obesity (BMI 30.0-34.9); Elevated bilirubin; Heartburn; Health care maintenance; Memory loss 05/18/2025 Travel 05/12/[address] [address] Barbara Breen MD Other hyperlipidemia 04/11/[address] [address] Barbara Breen MD Hypothyroidism, unspecified type from [...] Description 07/22/2025 11:15 AM EDT Office Visit [facility] [address] [place] [phone] Barbara Breen MD [address] [place] [address] Health Maintenance Due Date Last Done Comments CT Colonography 1955 Colonoscopy 1955 Colorectal Cancer Screening 1955 FIT DNA/Cologuard 1957 FIT 1957 FOBT 1955 Sigmoidoscopy 1957 Diabetes: Foot Exam 1967 Eye Exam 1967 Alcohol/Substance Use Screening 1969 SDOH Screening 01/30/2024 01/29/2023 Depression Screening 02/06/2024 02/05/2023, 02/06/20 23 COVID-19 Vaccine ( season) 2025 06/25/2024, 07/04/2022, 09/19/2021, Additional history exists Influenza Vaccine (#1) 2025 , 06/28/2023, 07/04/2022, Additional history exists Mammogram 08/19/2025 08/19/2023, 07/31, 07/26/2022, Additional history exists Diabetes: Hemoglobin A1C 09/01/2025 025, 05/18/2025, 07/23/2023, Additional history exists Tobacco Screening 05/18/2026 05/18/2025 Diabetes: Urine Protein Screening 06/02/2026 06/02/2025, 03/23/2021, 03/21/2021 Lipid Panel 06/02/2026 06/02/2025, 07/01, 02/07/2023, Additional history exists RSV Patients and Patients Aged 60 years or older (1 - 1-dose 75+ series) 2032 DTaP/Tdap/Td Vaccines (3 - Td or Tdap) 05/18/2035 05/18/2025, 11/25/2013 Pneumococcal Vaccine: 50+ Years Completed 07/13/2022, 10/22/2019 Hepatitis C Screening Completed 02/07/2023, 020 Cervical Cancer Screening Discontinued Pap Smear Discontinued 04/09/2023 Zoster Vaccines Completed 05/07/2023, 02/2023, 07/25/2017 HIB Vaccines Aged Out No longer [...] Procedure Name Priority Date/Time Associated Diagnosis Comments TSH W/REFLEX TO FT4 Routine 06/02/2025 9 :20 AM EDT VITAMIN D,25-OH,TOTAL,IA Routine 06/02/2025 9:20 AM EDT LIPID PANEL, STANDARD Routine 06/02/2025 9:20 AM EDT MAGNESIUM Routine 06/02/2025 9:20 AM EDT BASIC METABOLIC PANEL Routine 06/02/2025 9:20 AM EDT PTH, INTACT WITHOUT CALCIUM Routine 06/02/2025 9:20 AM EDT HEMOGLOBIN A1C Routine 06/02/2025 9:20 AM EDT URINE PROTEIN, TOTAL, RANDOM (W/O CREATININE) Routine 06/02/2025 8:30 AM EDT POTASSIUM URINE RANDOM Routine 8:30 AM EDT ALBUMIN, RANDOM URINE W/CREATININE Routine 06/02/2025 8:30 AM EDT URINALYSIS, COMPLETE Routine 06/02/2025 8:30 AM EDT XR CHEST 2 VIEWS Routine 05/19/2025 2:01 PM EDT Dry cough POCT GLYCATED HEMOGLOBIN, TOTAL Routine 05/18/2025 3:05 PM EDT Type 2 diabetes mellitus without complication, without long-term current use of insulin ([facility]) POCT GLUCOSE Routine 05/18/2025 3:03 PM EDT Type 2 diabetes mellitus without complication, without long-term current use of insulin ([facility]) BI MAMMOGRAM SCREENING TOMOSYNTHESIS BILATERAL Routine 08/19/2023 2:46 PM EST PAP SMEAR Routine 04/09/2023 1:25 PM EDT HEPATITIS C AB W/REFL TO HCV RNA, QN, PCR Routine 02/07/2023 8:36 AM EDT Health care maintenance from Last 3 Months or Most Recently Relevant to Health Maintenance Results * Vitamin D, 25-Hydroxy, Total, Immunoassay (06/02/2025 9:20 AM EDT) Vitamin D 25-OH Total 39.1 >30 ng/mL [facility] Comment: Health Based Reference Values*< 20 ng/mL Zvzrtiqih71-54 ng/mL Insufficient> 30 ng/mL Sufficient*Jonathan AVENDAÑO. N Engl J Med. 2007;357:266-280There is no well-established upper level of normal vitamin Dlevels. Some laboratories use 50 ng/mL as an upper limit ofnormal. However, toxicity is patient-dependent and may occurat any level. Careful correlation with the patient'spresentation is necessary and, if there is concern forvitamin D toxicity, treatment should be consideredirrespective of the serum level.Care must be taken in interpreting Vitamin D results fromdifferent laboratories and methodologies. Published datademonstrated that results from patients undergoinghemodialysis may show a negative bias when tested withvarious automated 25-OH vitamin D assays when compared toLC-MS/MS.When testing samples from patients whose predominant form ofVitamin D is Vitamin D2, such as patients receiving VitaminD2 supplementation, results that are subtherapeutic shouldbe confirmed with another method such as LC-MS/MS. 06/02/2025 9:20 AM EDT 06/02/2025 9:23 AM EDT us Generic External Data Provider LAB BLOOD ORDERAB LES Final Result [facility] [address] [place] [phone] * TSH with Reflex to Free T4 (06/02/2025 9:20 AM EDT) TSH reflex Free T4 2.21 0.32 - 4.0 uIU/mL [facility] 06/02/2025 9:20 AM EDT 06/02/2025 9:23 AM EDT us Generic External Data Provider LAB BLOOD ORDERAB LES Final Result Performing Organization Address [facility] Co de Phone Number [facility] [address] [place] [phone] * (ABNORMAL) PTH, Intact Without Calcium (06/02/2025 9:20 AM EDT) Parathyroid Hormone, Intact 106.9(H) 8.7 - 77.1 pg/mL [facility] 06/02/2025 9:20 AM EDT 06/02/2025 9:23 AM EDT us Generic External Data Provider LAB BLOOD ORDERAB LES Final Result Performing Organization Address [facility] Co de Phone Number [facility] [address] [place] [phone] * Magnesium (06/02/2025 9:20 AM EDT) Magnesium 1.8 1.6 - 2.6 mg/dL [facility] 06/02/2025 9:20 AM EDT 06/02/2025 9:23 AM EDT Generic External Data Provider LAB BLOOD ORDERAB LES Final Result Performing Organization Address [facility] Co de Phone Number [facility] [address] [place] [phone] * (ABNORMAL) Hemoglobin A1c (06/02/2025 9:20 AM EDT) Hemoglobin A1c 9.3(H) <6.0 % [facility] Comment:Hemoglobin A1C Refer ence Range Adults: 4.8 - 6.0 % Non diabetic: < 6.0 % Goal: < 7.0 %Additional Action Suggested: > 8.0 %Note: Hemoglobin A1c results are invalid for patients with abnormal amounts of HbF. Blood transfusions may impact the HbA1c concentration in the patient sample. Estimated Average Glucose 220 mg/dL [facility] Comment:eAG = Estimated ave rage glucose which is %A1C expressed asaverage glucose, using the formula of the J5L-WfxyrayNnipysd Glucose study (ADAG), Diabetes Care, Vol.31,#8,Apr. 2007 06/02/2025 9:20 AM EDT 06/02/2025 9:23 AM EDT us Generic External Data Provider LAB BLOOD ORDERAB LES Final Result [facility] [address] [place] [phone] * Lipid Panel, Standard (06/02/2025 9:20 AM EDT) Triglycerides 116 <150 mg/dL [facility] Comment:Desirable Triglyceri de: less than 150 mg/dLBorderline High Triglyceride 150-199 mg/dLHigh Triglyceride: 200-499 mg/dLVery High Triglyceride: greater than or equal to 5OO mg/dL Cholesterol 134 <200 mg/dL [facility] Comment:Desirable Cholestero l: less than 200 mg/dLBorderline High Cholesterol: 200-239 mg/dLHigh Cholesterol: greater than 239 mg/dL LDL Cholesterol Calculated 63 <100 mg/dL [facility] Comment:Desirable LDL: less than 100 mg/dLNear Optimal/Above Optimal LDL: 110- 129 mg/dLBorderline High LDL: 130-159 mg/dLHigh LDL: 160-189 mg/dLVery High LDL: greater than or equal to 190 mg/dL HDL Cholesterol 48 >40 mg/dL [facility] Comment:Desirable HDL: great er than 40 mg/dL Note: This HDL assay may give artificially low results in patients with liver disease. 06/02/2025 9:20 AM EDT 06/02/2025 9:23 AM EDT us Generic External Data Provider LAB BLOOD ORDERAB LES Final Result Performing Organization Address [facility] Co de Phone Number [facility] [address] [place] [phone] * (ABNORMAL) Basic Metabolic Panel (06/02/2025 9:20 AM EDT) Sodium 140 135 - 145 mmol/L [facility] Potassium 3.9 3.3 - 5.1 mmol/L [facility] Chloride 104 96 - 108 mmol/L [facility] Carbon Dioxide 27 22 - 29 mmol/L [facility] Anion Gap 13 12 - 20 [facility] Urea Nitrogen (BUN) 15 9 - 16 mg/dL [facility] Creatinine, Serum 0.93 0.5 - 1.4 mg/dL [facility] Estimated Glomerular Filt Rate 60 [facility] Comment:Chronic Kidney Disea se: Estimated GFR < 60 mL/min/1.09d2Uvhswc Kidney Disease: Estimated GFR < 15 mL/min/1.73m2 Glucose 239(H) 60 - 115 mg/dL [facility] Calcium 10.1 8.4 - 10.2 mg/dL [facility] 06/02/2025 9:20 AM EDT 06/02/2025 9:23 AM EDT us Generic External Data Provider LAB BLOOD ORDERAB LES Final Result Performing Organization Address [facility] Co de Phone Number [facility] [address] [place] [phone] * Potassium, Random Urine (06/02/2025 8:30 AM EDT) Potassium Urine Random 42.0 mmol/L [facility] 06/02/2025 8:30 AM EDT 06/02/2025 10:22 AM EDT us Generic External Data Provider LAB URINE ORDERAB LES Final Result Performing Organization Address [facility] Co de Phone Number [facility] [address] [place] [phone] * Albumin, Random Urine W/Creatinine (06/02/2025 8:30 AM EDT) Creatinine, Urine 111.82 mg/dL [facility] Microalbumin Urine 6.0 mg/L [facility] Microalbum Creatinine Ratio Ur 5.3 <30 ug/mg cr [facility] Comment:Albumin/Creatinine R atio Reference Ranges: Normal: < 30 ug/mg creatinine Microalbuminuria: 30 - 300 ug/mg creatinineClinical Albuminuria: > 300 ug/mg creatinine 06/02/2025 8:30 AM EDT 06/02/2025 10:22 AM EDT us Generic External Data Provider LAB URINE ORDERAB LES Final Result Performing Organization Address [facility]/ZIP Co de Phone Number [facility] [address] [place] [phone] * Urine Protein, Total, Random without Creatinine (06/02/2025 8:30 AM EDT) Protein, Total, Random Urine <7 <12 mg/dL [facility] 06/02/2025 8:30 AM EDT 06/02/2025 10:22 AM EDT Generic External Data Provider LAB URINE ORDERAB LES Final Result Performing Organization Address City/[facility]/ZIP Co de Phone Number [facility] [address] [place] [phone] * (ABNORMAL) Urinalysis Complete (06/02/2025 8:30 AM EDT) Color Urine Yellow [facility] Appearance Urine Clear [facility] PH 6.5 5.0 - 9.0 [facility] Glucose Urine UA >=1000(A) Negative mg/dL [facility] Urine Blood Negative Negative [facility] Specific [place] - Urine >=1.030(H) 1.005 - 1.025 [facility] Urine Protein Negative Neg-Trace mg/dL [facility] Urine Ketones Trace Negative mg/dL [facility] Nitrite Urine Negative Negative [facility] Leukocyte Esterase Urine Negative Negative [facility] RBC Urine 0-2 0 - 2 /HPF [facility] Urine WBC 0-5 0 - 5 /HPF [facility] Urine Squamous Epithelial Cell 0-2 0 - 2 /HPF [facility] Urine Bacteria Trace None Seen [facility] Hyaline Casts, Urine 0-2 0 - 2 /LPF [facility] 06/02/2025 8:30 AM EDT 06/02/2025 10:22 AM EDT us Generic External Data Provider LAB URINE ORDERAB LES Final Result Performing Organization Address City/State/[facility] de Phone Number [facility] [address] [place] [phone] * XR Chest 2 Views (05/19/2025 2:01 PM EDT) Anatomical Region Laterality Modality Chest Radiographic Lauren ging 05/19/2025 2:01 PM EDT Narrative 05/19/2025 3:01 PM EDT [address] [address] XRay Report Signed Patient: Laura Arellano MR#: [id number] 7 : 1955 Acct:[id number] Age/Sex: 70 / F ADM Date: 05/19/25 Loc: HO.HHCX Attending Dr: Barbara Donahue MD Ordering Physician: Barbara Breen MD Date of Service: 05/19/25 Procedure(s): XR chest 2V Accession Number(s): [id number] cc: Barbara Breen MD EXAMINATION: XR CHEST [...] 05/19/25 1458 DD/ 1401 TD/TT: 05/19/25 142 Smearer: [facility] Procedure Note Donotuseinterpreter, Image - 05/19/[address] [address] XRay Report Signed Patient: Laura Arellano EMR#: [id number] 7 : 1955cct:[id number] Age/Sex: 70 / FADM Date: 05/19/25 Loc: HO.HHCX Attending Dr: Barbara Donahue MD Ordering Physician: Barbara Breen MD Date of Service: 05/19/25 Procedure(s): XR chest 2V Accession Number(s): [id number] cc: Barbara Breen MD EXAMINATION: XR CHEST [...] OV> 05/19/25 1458 DD/ 1401 TD/TT: 05/19/25 1422 Smearer: [facility] us Barbara Donahue MD IMG XR PROCEDURES Final Result * (ABNORMAL) POCT HGB A1C (05/18/2025 3:05 PM EDT) Hemoglobin A1C 8.4(A) 4.0 - 5.7 % QC Media Lot # [id number] Lot# Expiration Date [id number] Blood 05/18/2025 3:05 PM EDT Barbara Donahue MD POINT OF CARE LIT T ENTER/EDIT ORDERABLES Final Result * POCT Glucose (05/18/2025 3:03 PM EDT) Glucose Blood, POC 166 60 - 200 mg/dL QC Media Lot # [id number] Lot# Expiration Date [id number] Blood Capillary blood specimen / Unknown 05/18/2025 3:03 PM EDT Barbara Donahue MD POINT OF CARE LIT T ENTER/EDIT ORDERABLES Final Result * BI Mammogram Screening Tomosynthesis Bilateral (08/19/2023 2:46 PM EST) Anatomical Region Laterality Modality Breast Bilateral Mammography 08/19/2023 2:46 PM EST Narrative 09/05/2023 7:34 AM EST Lance [facility] [address] [place] [address] Mammography Report Signed Patient: Laura Arellano MR#: [id number] 7 : 1955 Acct:[id number] Age/Sex: 68 / F ADM Date: 08/19/23 Loc: HO.MAMMO Attending Dr: Milton Martin MD Ordering Physician: Barbara Breen MD Re sults: 1Negative Date of Service: 08/19/23 Follow Up: 1 Year From Orig inal Mammogram Procedure(s): MM tomosynthesis screening BI Accession Number(s): [id number] cc: Barbara Breen MD EXAMINATION: MM SCREENING [...] in OV> 09/05/23 0730 DD/ 1446 TD/TT: Smearer: Procedure Note Donotuseinterpreter, Image - 09/05/[facility] [address] [place], [place] [address] Mammography Report Signed Patient: Laura Arellano EMR#: [id number] 7 : 7Acct:[id number] Age/Sex: 68 / FADM Date: 08/19/23 Loc: JACINTO Attending Dr: Milton Martin MD Ordering Physician: Barbara Breen sults: 1Negative Date of Service: 08/19/23Follow Up: 1 Year From Orig inal Mammogram Procedure(s): MM tomosynthesis screening BI Accession Number(s): [id number] cc: Barbara Breen MD EXAMINATION: MM SCREENING [...] in OV> 09/05/23 0730 DD/ 1446 TD/TT: Smearer: Barbara Donahue MD IMG BI PROCEDURES Final Result * Pap Smear (04/09/2023 1:25 PM EDT) 04/09/2023 1:25 PM EDT 04/11/2023 10:00 AM EDT [facility] - 05/03/2023 10:26 AM EDT ----- ------- Name: Behzad Arellanogabi Valencia Age/Sex: 68/F : 1955 Unit#: [id number] Attend Dr: Kimmy Love CNM Re04/09/23 Status: DEP REF Location: [facility] Disch: ----- ------- SPEC : [id number] RECD: 04/11/23 STATUS: CASA CASTRO NUM: [id number] YUKI: 04/09/23-1325 [facility] DR: Kimmy Love [facility] ENTERED: 04/11/23-1047 SP TYPE: Pap Smr OTHR DR: Barbara Breen MD ORDERED: Pap Smear Interpretation Satisfactory for evaluation. Mild inflammation. Negative for intraepithelial lesion or malignancy. HPV mRNA E6/E7: NOT DETECTED This assay detects E6/E7 viral messenger RNA (mRNA) from 14 high-risk HPV types (16, 18, 31, 33, 35, 39, 45, 51, 52, 56, 58, 59, 66, 68) HPV testing performed by [facility], [place], [place]. See reference laboratory pion of the EMR for entire report. Clinical Information LMP: Menopausal Previous PAP test: 2017, Abnormal Other surgery: Leep 2014 SWATHI II Material Received ThinPrep-Cervical Copies To: Kimmy Love[address] [place] [address] Barbara Breen MD [address] [place] [phone] ----- ------- Signed (signature on file) LATASHA Manley (ASCP) 05/03/23 1026 ----- ------- END OF REPORT [facility] External Provider LAB CYT OLOGY ORDERABLES Final Result Performing Organization Address City/[facility]/ZIP Co de Phone Number [facility] [address] [place] [phone] [phone] * Hepatitis C Antibody with Reflex to HCV, RNA, Quantitative, Real-Time PCR (02/07/2023 8:36 AM EDT) Hepatitis C Antibody NON-REACT JUAN NON-REACT JUAN [facility] [place] [facility] Index 0.10 <1.00 [facility] [place] [facility] Comment: HCV antibody was non-reactive. There is no laboratory evidence of HCV infection. In most cases, no further action is required. However, if recent HCV exposure is suspected, a test for HCV RNA (test code 52500) is suggested. For additional information please refer to http://education.TheTake/faq/TNB73g7 (This link is being provided for informational/ educational purposes only.) Blood Venous blood specimen / Unknown 02/07/2023 8:36 AM EDT 02/07/2023 8:37 AM EDT Narrative [facility] - 02/12/2023 12:57 AM EDT FASTING:YES COLLECTION KIT GIVEN TO PATIENT. PATIENT ADVISED TO RETURN. FASTING: YES Barbara Donahue MD LAB BLOOD ORDERAB LES Final Result Performing Organization Address City/[facility]/ZIP Co de Phone Number [facility] [address], [place] [phone] [facility] [place] [facility] [address] [place] [phone] from Last 3 Months or Most Recently Relevant to Health Maintenance Insurance [facility] Care Teams Highway Commissioner Relationship Specialty Start Date End Date Barbara Breen MD [address] [place] [phone] PCP - General Internal Medicine 01/15/23
--- OUTSIDE RECORDS SUMMARY | 2025-06-03 16:45 | XMS_ITS | Encounter Summary ---
Author Organization [employer] Address [address] [place] [address] [place] [address] Care Team Providers Care Summer Camp Counselor Name Role Phone Dede Child [facility] Primary Care Provider [phone] Barbara Breen MD Primary Care Pro vider Reason for Visit * Reason Comments Med Change Request Encounter Details Date Type Department Care Team (Late Contact Info) Description 10/26/2022 Refill [facility] [address] [place] [address] Dede Child FNP [address] [place] [address] Controlled type 2 diabetes mellitus without complication, without long-term current use of insulin ([facility]) (Primary Dx); Type 2 diabetes mellitus with hyperosmolarity without coma, without long-term current use of insulin (CMS/[facility]) Social History Tobacco Use Types [...] 07/22/2025 11:15 AM EDT Office Visit [facility] [address] [place] [address] Barbara Breen MD [address] [place], [place] [phone] documented as of this encounter Visit Diagnoses Diagnosis Controlled type 2 diabetes mellitus without complication, without long-term current use of insulin (CMS/HCC)- Primary Type 2 diabetes mellitus with hyperosmolarity without coma, without long-term current use of insulin (CMS/HCC) documented in this encounter Care Teams Summer Camp Counselor Relationship Specialty Start Date End Date Dede Child FNP [address] [place] [phone] PCP - General Family Medicine 10/26/22 01/14/23 Barbara Breen MD [address] [place] [address] PCP - General Internal Medicine 01/15/23 documented as of this encounter
--- OUTSIDE RECORDS SUMMARY | 2025-06-03 16:45 | XMS_ITS | Encounter Summary ---
Author Organization [employer] Address [address] [place] [address] 7 [place] [address] Care Team Providers Care Fitting Supervisor Name Role Phone Barbraa Breen MD Primary Care Pro vider Reason for Visit * Reason Comments Med Change Request Encounter Details Date Type Department Care Team ([facility] Contact Info) Description 08/09/2023 Refill [facility] [address] [place] [address] Barbara Breen MD [address] [place] [address] Social History Tobacco Use Types Packs/Day Years [...] Description 07/22/2025 11:15 AM EDT Office Visit [facility] [address] [place] [phone] Barbara Breen MD [address] [place] [phone] documented as of this encounter Visit Diagnoses Not on filedocumented in this encounter Additional Health Concerns Assessment Noted Time PHQ-9 Depression Total Score: 1 02/06/20 10:09 AM EDT documented as of this encounter Care Teams Fitting Supervisor Relationship Specialty Start Date End Date Barbara Breen MD [address] [place] [phone] PCP - General Internal Medicine 01/15/23 documented as of this encounter
--- OUTSIDE RECORDS SUMMARY | 2025-06-03 16:45 | XMS_ITS | Encounter Summary ---
Author Organization [employer] Address [address] [place] [address] 7 [place] [address] Care Team Providers Care Diesel Stationary Engineer Name Role Phone Barbara Breen MD Primary Care Pro vider Reason for Visit * Reason Comments Med Refill Encounter Details Date Type Department Care Team (Late Contact Info) Description 03/28/2023 Refill [facility] [address] [place] [phone] Barbara Breen MD [address] [place] [phone] Social History Tobacco Use Types Packs/Day Years [...] Description 07/22/2025 11:15 AM EDT Office Visit [facility] [address] [place] [phone] Barbara Breen MD [address] [place], [place] [phone] documented as of this encounter Visit Diagnoses Not on filedocumented in this encounter Additional Health Concerns Assessment Noted Time PHQ-9 Depression Total Score: 1 02/06/20 10:09 AM EDT documented as of this encounter Care Teams Diesel Stationary Engineer Relationship Specialty Start Date End Date Barbara Breen MD [address] [place] [address] PCP - General Internal Medicine 01/15/23 documented as of this encounter
--- OUTSIDE RECORDS SUMMARY | 2025-06-03 16:45 | XMS_ITS | Encounter Summary ---
Author Organization [employer] Address [address] [facility] 7t [place] [address] Care Team Providers Care Registered Nurse Cardiac Name Role Phone Barbara Breen MD Primary Care Pro vider Reason for Visit * Reason Onset Date Comments Medication Question 06/02/2025 Encounter Details Date Type Department Care Team ([facility] Contact Info) Description 06/02/2025 Results Follow-Up [facility] [address] [place] [address] Alissa Miller RN Hemoglobin A1c, Urinalysis Complete Social History Tobacco Use Types Packs/Day Years Used Date Smoking Tobacco: Never Passive Smoke Exposure: Never Smokeless Tobacco: Never Alcohol Use Standard Drinks/Week Comments Not Currently [...] encounter Miscellaneous Notes * Telephone Encounter - Alissa Miller RN - 06/02/2025 11:29 AM EDT TC placed to the pt in regards to inquiring if the prescribed Mounjaro 2.5 mg prescription had beenpicked up and started. Pt states that she has tried to brick picker the medication from the pharmacy butapparently it has been on back order. RN called the [facility] in [place] who confirmed this but stated that a shipment should be in this week. They will call the pt when the prescription is ready for pickup . The pt was advised of the worsening Hemoglobin A1C and the pt is eager to start on the GLP1. ----- Message from Barbara Donahue MD sent at 06/02/2025 10:43 AM EDT ----- Please can you follow w pt is she started using Tirzepatide prescribed at last apt ? Noted w labs done w another provider w worsening DM , ,med was prescribed in 04/2025 And remind pt to get labs ordered at last apt to be done just prior next visit Thanks ----- Message ----- From: Interface, Lab Results In Sent: 06/02/2025 10:22 AM EDT To: Barbara Donahue MD documented in this encounter Plan of Treatment Upcoming Encounters Date Type Department Care Team (Late st Contact Info) Description 07/22/2025 11:15 AM EDT Office Visit [facility] [address] [place] [address] Barbara Breen MD [address] [place] [phone] documented as of this encounter Visit Diagnoses Not on filedocumented in this encounter Additional Health Concerns Assessment Noted Time PHQ-9 Depression Total Score: 1 02/06/20 23 10:09 AM EDT documented as of this encounter Care Teams Registered Nurse Cardiac Relationship Specialty Start Date End Date Barbara Breen MD [address] [place] [address] PCP - General Internal Medicine 01/15/23 documented as of this encounter
--- OUTSIDE RECORDS SUMMARY | 2025-06-03 16:45 | XMS_ITS | Encounter Summary ---
Author Organization [employer] Address [address] [facility] 7t [place] [address] Care Team Providers Care Plaster Helper Name Role Phone Barbara Breen MD Primary Care Pro vider Encounter Details Date Type Department Care Team ([facility] st Contact Info) Description 06/02/2025 Orders Only GENERIC EXTERNAL DATA DEPARTMENT Provider, Generic External Data Social History Tobacco Use Types Packs/Day Years [...] Description 07/22/2025 11:15 AM EDT Office Visit [facility] [address] [place], [place] [phone] Barbara Breen MD [address] [place], [place] [phone] documented as of this encounter Procedures Procedure Name Priority Date/Time Associated Diagnosis Comments VITAMIN D,25-OH,TOTAL,IA Routine 06/02/2025 9:20 AM EDT TSH W/REFLEX TO FT4 Routine 06/02/2025 9 :20 AM EDT PTH, INTACT WITHOUT CALCIUM Routine 06/02/2025 9:20 AM EDT MAGNESIUM Routine 06/02/2025 9:20 AM EDT HEMOGLOBIN A1C Routine 06/02/2025 9:20 AM EDT LIPID PANEL, STANDARD Routine 06/02/2025 9:20 AM EDT BASIC METABOLIC PANEL Routine 06/02/2025 9:20 AM EDT POTASSIUM URINE RANDOM Routine 06/02/2025 8:30 AM EDT ALBUMIN, RANDOM URINE W/CREATININE Routine 06/02/2025 8:30 AM EDT URINE PROTEIN, TOTAL, RANDOM (W/O CREATININE) Routine 06/02/2025 8:30 AM EDT URINALYSIS, COMPLETE Routine 06/02/2025 8:30 AM EDT documented in this encounter Results * TSH with Reflex to Free T4 (06/02/2025 9:20 AM EDT) TSH reflex Free T4 2.21 0.32 - 4.0 uIU/mL [facility] 06/02/2025 9:20 AM EDT 06/02/2025 9:23 AM EDT us Generic External Data Provider LAB BLOOD ORDERAB LES Final Result [facility] [address] [place] [phone] * Vitamin D, 25-Hydroxy, Total, Immunoassay (06/02/2025 9:20 AM EDT) Vitamin D 25-OH Total 39.1 >30 ng/mL [facility] Comment: Health Based Reference Values*< 20 ng/mL [id number] ng/mL Insufficient> 30 ng/mL Sufficient*Jonathan AVENDAÑO. N [...] ORDERAB LES Final Result Performing Organization Address City/[facility] Co de Phone Number [facility] [address] [place] [phone] * Lipid Panel, Standard (06/02/2025 9:20 AM EDT) Triglycerides 116 <150 mg/dL [facility] Comment:Desirable Triglyceri de: less than 150 mg/dLBorderline High Triglyceride 150-199 mg/dLHigh Triglyceride: 200-499 mg/dLVery High Triglyceride: greater than or equal to 5OO mg/dL Cholesterol 134 <200 mg/dL [facility] Comment:Desirable Cholestero l: less than 200 mg/dLBorderline High Cholesterol: 200-239 mg/dLHigh Cholesterol: greater than 239 mg/dL LDL Cholesterol Calculated 63 <100 mg/dL [facility] Comment:Desirable LDL: less than 100 mg/dLNear Optimal/Above Optimal LDL: 110- 129 mg/dLBorderline High LDL: 130-159 mg/dLHigh LDL: 160-189 mg/dLVery High LDL: greater than or equal to 190 mg/dL HDL Cholesterol 48 >40 mg/dL [facility] Comment:Desirable HDL: great er than 40 mg/dL Note: This HDL assay may give artificially low results in patients with liver disease. 06/02/2025 9:20 AM EDT 06/02/2025 9:23 AM EDT us Generic External Data Provider LAB BLOOD ORDERAB LES Final Result Performing Organization Address [facility]/ZIP Co de Phone Number [facility] [address] [place] [phone] * Magnesium (06/02/2025 9:20 AM EDT) Magnesium 1.8 1.6 - 2.6 mg/dL [facility] 06/02/2025 9:20 AM EDT 06/02/2025 9:23 AM EDT us Generic External Data Provider LAB BLOOD ORDERAB LES Final Result Performing Organization Address City/State/[facility] Co de Phone Number [facility] [address] [place] [phone] * (ABNORMAL) Basic Metabolic Panel (06/02/2025 9:20 AM EDT) Sodium 140 135 - 145 mmol/L [facility] Potassium 3.9 3.3 - 5.1 mmol/L [facility] Chloride 104 96 - 108 mmol/L [facility] Carbon Dioxide 27 22 - 29 mmol/L [facility] Anion Gap 13 12 - 20 [facility] Urea Nitrogen (BUN) 15 9 - 16 mg/dL [facility] Creatinine, Serum 0.93 0.5 - 1.4 mg/dL [facility] Estimated Glomerular Filt Rate 60 [facility] Comment:Chronic Kidney Disea se: Estimated GFR < 60 mL/min/[id number] Kidney Disease: Estimated GFR < 15 mL/min/1.73m2 Glucose 239(H) 60 - 115 mg/dL [facility] Calcium 10.1 8.4 - 10.2 mg/dL [facility] 06/02/2025 9:20 AM EDT 06/02/2025 9:23 AM EDT us Generic External Data Provider LAB BLOOD ORDERAB LES Final Result Performing Organization Address [facility] de Phone Number [facility] [address] [place] [address] [phone] * (ABNORMAL) PTH, Intact Without Calcium (06/02/2025 9:20 AM EDT) Parathyroid Hormone, Intact 106.9(H) 8.7 - 77.1 pg/mL [facility] 06/02/2025 9:2 0 AM EDT 06/02/2025 9:23 AM EDT us Generic External Data Provider LAB BLOOD ORDERAB LES Final Result Performing Organization Address [facility] Co de Phone Number [facility] [address] [place] [phone] * (ABNORMAL) Hemoglobin A1c (06/02/2025 9:20 AM EDT) Hemoglobin A1c 9.3(H) <6.0 % [facility] Comment:Hemoglobin A1C Refer ence Range Adults: 4.8 - 6.0 % Non diabetic: < 6.0 % Goal: < 7.0 %Additional Action Suggested: > 8.0 %Note: Hemoglobin A1c results are invalid for patients with abnormal amounts of HbF. Blood transfusions may impact the HbA1c concentration in the patient sample. Estimated Average Glucose 220 mg/dL [facility] Comment:eAG = Estimated ave rage glucose which is %A1C expressed asaverage glucose, using the formula of the U2H-ZatwcloKlycech Glucose study (ADAG), Diabetes Care, Vol.31,#8,2007 06/02/2025 9:20 AM EDT 06/02/2025 9:23 AM EDT us Generic External Data Provider LAB BLOOD ORDERAB LES Final Result Performing Organization Address [facility] de Phone Number [facility] [address] [place] [phone] * Urine Protein, Total, Random without Creatinine (06/02/2025 8:30 AM EDT) Protein, Total, Random Urine <7 <12 mg/dL [facility] 06/02/2025 8:30 AM EDT 06/02/2025 10:22 AM EDT us Generic External Data Provider LAB URINE ORDERAB LES Final Result Performing Organization Address [facility] de Phone Number [facility] [address] [place] [phone] * Potassium, Random Urine (06/02/2025 8:30 AM EDT) Potassium Urine Random 42.0 mmol/L [facility] 06/02/2025 8:30 AM EDT 06/02/2025 10:22 AM EDT us Generic External Data Provider LAB URINE ORDERAB LES Final Result Performing Organization Address [facility] Co de Phone Number [facility] [address] [place] [phone] * Albumin, Random Urine W/Creatinine (06/02/2025 8:30 AM EDT) Creatinine, Urine 111.82 mg/dL [facility] Microalbumin Urine 6.0 mg/L [facility] Microalbum Creatinine Ratio Ur 5.3 <30 ug/mg cr [facility] Comment:Albumin/Creatinine R atio Reference Ranges: Normal: < 30 ug/mg creatinine Microalbuminuria: 30 - 300 ug/mg creatinineClinical Albuminuria: > 300 ug/mg creatinine 06/02/2025 8:30 AM EDT 06/02/2025 10:22 AM EDT us Generic External Data Provider LAB URINE ORDERAB LES Final Result Performing Organization Address [facility] Co de Phone Number [facility] [address] [place] [phone] * (ABNORMAL) Urinalysis Complete (06/02/2025 8:30 AM EDT) Color Urine Yellow [facility] Appearance Urine Clear [facility] PH 6.5 5.0 - 9.0 [facility] Glucose Urine UA >=1000(A) Negative mg/dL [facility] Urine Blood Negative Negative [facility] Specific [place] - Urine >=1.030(H) 1.005 - 1.025 [facility] Urine Protein Negative Neg-Trace mg/dL [facility] Urine Ketones Trace Negative mg/dL [facility] Nitrite Urine Negative Negative [facility] Leukocyte Esterase Urine Negative Negative [facility] RBC Urine 0-2 0 - 2 /HPF [facility] Urine WBC 0-5 0 - 5 /HPF [facility] Urine Squamous Epithelial Cell 0-2 0 - 2 /HPF [facility] Urine Bacteria Trace None Seen [facility] Hyaline Casts, Urine 0-2 0 - 2 /LPF [facility] 06/02/2025 8:30 AM EDT 06/02/2025 10:22 AM EDT us Generic External Data Provider LAB URINE ORDERAB LES Final Result [facility] [address] [place] [phone] documented in this encounter Visit Diagnoses Not on filedocumented in this encounter Additional Health Concerns Assessment Noted Time PHQ-9 Depression Total Score: 1 02/06/20 10:09 AM EDT documented as of this encounter Care Teams Plaster Helper Relationship Specialty Start Date End Date Barbara Breen MD [address] [place] [address] PCP - General Internal Medicine 01/15/23 documented as of this encounter
== END ==
LOC: HO.HKA 16:26
PROVIDERS: PCP Student in an Organized Health Care Education/Training Program; Visit Provider Internal Medicine Critical Care Medicine
DX: I10 Essential (primary) hypertension (principal); R93.1 Abnormal findings on diagnostic imaging of heart and coronary circulation
CPT/HCPCS: 99213

== ENCOUNTER 2025-06-17 14:19 | Outpatient (AMB) | payer OTHER, MEDICAID, SELFPAY ==
[2025-06-17 14:42] VITALS: BP 114/62; PULSE 58; BMI 31.1
--- NOTE | 2025-06-17 14:42 | MHC.OFFVIS ---
Vital Signs 06/17/25 14:42 Height 5 ft 2 in Weight 170 lb 3.15 oz BMI 31.1 BP 114/62 Blood Pressure Location Lt brachial Position Sitting Pulse 58 Intake Visit Reasons: 6m follow up Convention Services Manager Required: No Allergies nifedipine Allergy (Mild, Verified 06/17/25 14:44) Unknown Medication List - Last Reconciled 06/17/25 by Alana Cox, MONAE-C atorvastatin 20 mg PO DAILY blood pressure monitor As directed Take BP twice weekly and call if SBP> 140s fexofenadine 180 mg PO DAILY PRN fluticasone propionate 50 mcg/actuation 1 spray intranasal PRN levothyroxine 75 mcg PO DAILY losartan 100 mg PO DAILY metoprolol tartrate 25 mg PO BID pantoprazole 20 mg PO BID spironolactone 12.5 mg (1/2 x 25 mg) PO DAILY 90 days HPI HPI 6m follow up: Details: Laura is a 69-year-old female past medical history of hypertension, hyperlipidemia, obesity, syncope who presents for follow-up. Today she reports that she has not had any presyncopal or syncopal events her last visit in November. She is currently feeling very well and has no cardiac concerns. She denies chest discomfort, shortness of breath, heart palpitations, lightheadedness. She walks routinely for exercise. Her blood pressures have been well controlled. She is taking all meds as directed. FORMERLY [facility], [facility] Medical History GERD (gastroesophageal reflux disease) Type 2 diabetes mellitus Hypothyroid Elevated cholesterol High blood pressure Surgical History History of laparoscopic cholecystectomy (04/11/23) History of loop electrical excision procedure (LEEP) Hx of dilation and curettage H/O colonoscopy Family History Father Prostate cancer Sister History of breast cancer BRCA negative Family/Other Colon cancer Social History Household Members: Spouse Alcohol intake: current Alcohol intake frequency: holidays/special occasions only Patient Tobacco Use Status: Never used Tobacco Sexual orientation: Straight/Heterosexual Gender identity: Female Review of Systems Const All systems reviewed & are unremarkable except as noted in HPI and below ENT Denies dizziness Card Denies chest pain, Denies chest pain at rest, Denies chest pain with activity, Denies rapid heart rate, Denies pedal edema, Denies edema, Denies leg edema, Denies lightheadedness, Denies palpitations, Denies dyspnea, Denies dyspnea on exertion and Denies orthopnea Resp Denies cough, Denies dyspnea and Denies dyspnea on exertion GI Denies hematochezia and Denies change in stool character Musc Denies abnormal gait, Denies limited range of motion, Denies muscle cramps, Denies muscle weakness, Denies numbness, Denies radiating pain into limb, Denies stiffness and Denies tingling Neuro Denies abnormal gait, Denies dizziness, Denies numbness and Denies tingling Endo Denies palpitations Physical Exam Vital Signs: Last Vital Signs BP 114/62 06/17/25 14:42 BMI result Body Mass Index 31.1 Const General: cooperative, healthy appearing, comfortable and no acute distress Orientation/consciousness: patient oriented x3 Neck Neck: Yes normal visual inspection Resp Effort & Inspection: normal respiratory effort Auscultation: clear to auscultation bilaterally, no rales, no rhonchi and no wheezes Cardio Rate: regular rate Rhythm: regular rhythm Heart sounds: S1 normal heart sound present, S2 normal heart sound present, no gallops, no murmurs and no rubs Neuro General: patient oriented x3 Extrem General: Yes normal to inspection, No no pedal edema and No calf tenderness Psych Appearance: grossly normal Mental Status: mental status grossly normal Speech and movement: Normal speech and movement present Assessment & Plan Assessment & Plan (1) Syncope: Code(s): R55 - Syncope and collapse Category: Medical Plan: Prior syncopal events, thought to be vasovagal in nature. Cardiac testing included EKG done last visit showed sinus bradycardia, rate 52, normal AK, QRS and QTC intervals. An echocardiogram was done on 05/14/2024 with EF 62%, no wall motion abnormalities and no significant valve abnormalities. Holter monitor was done on 05/14/2024 for 3 days showing sinus rhythm with average heart rate 58, 53% of the time heart rate less than 60, no significant arrhythmia. She has not had recent or recurrent events. If she does then tilt-table test will be ordered. Reviewed good hydration, physical activity as tolerated, recognizing symptoms and sit/lay down if needed. Emergency care if needed for recurrent syncope. Cardiology follow-up 1 year, sooner if needed. (2) Essential hypertension: Code(s): I10 - Essential (primary) hypertension Category: Medical Plan: Blood pressure goal less than 130/80. Well controlled at this time. Labs done 06/02/2025 showed potassium 3.9, creatinine 0.93. Continue losartan, Aldactone, metoprolol. (3) Abnormal echocardiogram findings without diagnosis: Code(s): R93.1 - Abnormal findings on diagnostic imaging of heart and coronary circulation Category: Medical Plan: Elevated RVSP noted on echo. A home sleep study was done on 10/24/2023 showing no sleep apnea. No shortness of breath. Plan The patient's hypertension management was reviewed, confirming the effectiveness of the current regimen. We also addressed the elevated hemoglobin A1c, emphasizing the importance of weight loss and medication adherence. We discuss her prior syncopal episodes and be alert to any symptoms indicating recurrent episodes. The importance of good hydration reviewed. Follow up visit planned for 1 year with instructions to report any new symptoms such as chest pain or leg swelling. Patient Instructions: - Maintain current blood pressure medications and monitor regularly. - Focus on weight loss and med compliance to help manage elevated hemoglobin A1c. - Schedule a follow-up in one year with an EKG. - Report any new symptoms such as chest pain or leg swelling immediately. Patient was informed and verbally consented to the use of an ambient scribe for clinic note documentation during this visit. Visit time spent on chart review, interview, assessment, orders, documentation. Coding Level of Care Code Est Pt Level 3 (60255) Complex EM visit Add On G2211 Diagnoses Syncope R55 Essential hypertension I10 Abnormal echocardiogram findings without diagnosis R93.1 Time Spent (min) 24
== END 2025-06-17 15:03 | disposition home or self-care (01) ==
LOC: HO.HCS 14:20
PROVIDERS: PCP Student in an Organized Health Care Education/Training Program; Visit Provider Nurse Practitioner Family
DX: R55 Syncope and collapse (principal); I10 Essential (primary) hypertension; R93.1 Abnormal findings on diagnostic imaging of heart and coronary circulation
CPT/HCPCS: 99213; G2211

== ENCOUNTER 2025-07-09 12:22 | Outpatient (REF) | payer OTHER, SELFPAY ==
--- NOTE | ~2025-07-09 | MM_ITS ---
EXAMINATION: DXA BONE DENSITY AXIAL HISTORY: pt is postmenopausal needs to r/o osteoporosis TECHNIQUE: [email or web address] Dual energy absorptiometry (DEXA) of the lumbar spine, total left hip, and femoral neck was performed. COMPARISON: Comparison is made with the prior examination dated 07/26/2022. FINDINGS: The bone mineral density of the lumbar spine is 1.163 g/cm2, corresponding to a T-score of -0.1, and a Z-score of 1.2. This is indicative of normal bone mineral density. This represents a BMD change of 1.5% compared to the prior exam. This is not statistically significant. The bone mineral density of the left total hip is 1.035 g/cm2, corresponding to a T-score of 0.2, and a Z-score of 1.4. This is indicative of normal bone mineral density. This represents a BMD change of 2.4% compared to the prior exam. This is not statistically significant. The bone mineral density of the left femoral neck is 0.971 g/cm2, corresponding to a T-score of -0.5, and a Z-score of 1.0. This is indicative of normal bone mineral density. This represents a BMD change of 3.6% compared to the prior exam. FRACTURE RISK: The FRAX index suggests a ten year probability of major osteoporotic fracture of 4.3%, and of hip fracture 0.3%. MM/XR DEXA axial skeleton IMPRESSION: Based on bone mineral density, and according to World Health Organization (WHO) criteria, the diagnosis is consistent with normal bone mineral density. Statistically, 68% of repeat scans fall within 1 SD (+/- 0.010 g/cm2 for AP spine L1-L4) and 1 SD (+/- 0.012 g/cm2 for femur total) FRAX is a trademark of the [employer], a World Health Organization (WHO) Collaborating Center. Electronically signed by: Adryan Chandra MD 07/09/2025 01:16 PM EDT
== END 2025-07-09 12:23 | disposition home or self-care (01) ==
LOC: HO.MAMMO 12:22
PROVIDERS: PCP Student in an Organized Health Care Education/Training Program; Visit Provider Student in an Organized Health Care Education/Training Program
DX: Z12.31 Encounter for screening mammogram for malignant neoplasm of breast (principal); Z13.820 Encounter for screening for osteoporosis; Z78.0 Asymptomatic menopausal state
CPT/HCPCS: 77063; 77067; 77080

== ENCOUNTER → 2025-07-09 13:00 | Outpatient (BNV) | payer OTHER, SELFPAY | PROVIDERS: PCP Student in an Organized Health Care Education/Training Program; Visit Provider Radiology Diagnostic Radiology | DX: E28.39 Other primary ovarian failure (principal) | CPT/HCPCS: 77080 ==

== ENCOUNTER 2025-07-13 14:30 | Outpatient (AMB) | payer MEDICARE, MEDICAID, SELFPAY ==
--- NOTE | 2025-06-03 16:32 | HO.NEPHOV ---
Intake Visit Reasons: 1mon f/u Allergies nifedipine Allergy (Mild, Verified 06/01/25 15:38) Unknown [facility] Medical History GERD (gastroesophageal reflux disease) Type 2 diabetes mellitus Hypothyroid Elevated cholesterol High blood pressure Surgical History History of laparoscopic cholecystectomy (04/11/23) History of loop electrical excision procedure (LEEP) Hx of dilation and curettage H/O colonoscopy Family History Father Prostate cancer Sister History of breast cancer BRCA negative Family/Other Colon cancer Social History Household Members: Spouse Alcohol intake: current Alcohol intake frequency: holidays/special occasions only Patient Tobacco Use Status: Never used Tobacco Sexual orientation: Straight/Heterosexual Gender identity: Female Results Reviewed Nephrology Results: Sodium, (135-145) 140 mmol/L 06/02/25 Potassium, (3.3-5.1) 3.9 mmol/L 06/02/25 Chloride, (96-108) 104 mmol/L 06/02/25 Carbon Dioxide, (22-29) 27 mmol/L 06/02/25 BUN, (9-16) 15 mg/dL 06/02/25 Creatinine, (0.5-1.4) 0.93 mg/dL 06/02/25 Calcium, (8.4-10.2) 10.1 mg/dL 06/02/25 PTH Intact, (8.7-77.1) 106.9 pg/mL H 06/02/25 Urine Protein, (Neg-Trace) Negative mg/dL 06/02/25 Urine Creatinine 111.82 mg/dL 06/02/25 Coding
[2025-07-13 14:32] VITALS: BP 136/80; PULSE 64; O2SAT 97; BMI 30.5
--- NOTE | 2025-07-13 14:32 | HO.NEPHOV ---
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 Her blood pressures are improving at home around 99-110mmHG. Has diabetes and obesity, HbA1c is 9.3. no other medical problems not taking vitamin D pills her recently diagnosed with cancer and is slightly stressed about it. 24 hrs AMB blood pressure monitoring in 05/2025 Average blood pressures 128/75, while awake 133/79 and while asleep 109/63. Daytime blood pressures are falsely elevated as patient had to come to the lab for blood draws and had to run across the buildings to get the blood draw done between 9 and 10:30 a.m. during which her blood pressure is elevated to 150 systolics to 180 systolic. When she was done and relaxing at home her blood pressure was back to baseline around 120-130 mm Hg. In the afternoon when she went for walk again blood pressure increased to 170 systolic. [facility] Medical History GERD (gastroesophageal reflux disease) Type 2 diabetes mellitus Hypothyroid Elevated cholesterol High blood pressure Surgical History History of laparoscopic cholecystectomy (04/11/23) History of loop electrical excision procedure (LEEP) Hx of dilation and curettage H/O colonoscopy Family History Father Prostate cancer Sister History of breast cancer BRCA negative Family/Other Colon cancer Social History Household Members: Spouse Alcohol intake: current Alcohol intake frequency: holidays/special occasions only Patient Tobacco Use Status: Never used Tobacco Sexual orientation: Straight/Heterosexual Gender identity: Female Review of Systems Const Details: Const : no body aches, no chills, no excessive sweating and no fatigue Eyes: no blurry vision and no change in vision ENT: no bleeding gums and no change in voice, no dizziness Card: no chest pain, no shortness of breath, no orthopnea, no PND Resp: no cough, no excessive phlegm production, no SOB GI: no abdominal pain and no nausea, no vomiting : no hematuria, no urinary frequency and no difficulty voiding Musc: no abnormal gait, no bone pain Neuro: no abnormal movements, no weakness, no dizziness, no abnormal gait and no behavioral changes Psych: no behavioral changes and no change in appetite Endo: no cold intolerance, no excessive sweating and no fatigue Physical Exam Vital Signs: BMI result Body Mass Index 30.5 General: not in any acute distress, comfortable, sitting on the chair Nutritional Appearance: well nourished and obese Eyes: normal position, no icterus Neck: No lymphadenopathy, no thyromegaly Resp: bilateral air entry equal, no added sounds present Cardio: normal S1, S2 heard, no murmur heard, no edema GI: soft, nontender, no guarding, no hepatosplenomegaly : bladder normal to inspection, bladder normal to palpation, no renal angle tenderness Skin: no rashes or lesions noted and elasticity normal Neuro: oriented to person, oriented to place, oriented to time and moves all extremities Results Reviewed Nephrology Results: Sodium, (135-145) 140 mmol/L 06/02/25 Potassium, (3.3-5.1) 3.9 mmol/L 06/02/25 Chloride, (96-108) 104 mmol/L 06/02/25 Carbon Dioxide, (22-29) 27 mmol/L 06/02/25 BUN, (9-16) 15 mg/dL 06/02/25 Creatinine, (0.5-1.4) 0.93 mg/dL 06/02/25 Calcium, (8.4-10.2) 10.1 mg/dL 06/02/25 PTH Intact, (8.7-77.1) 106.9 pg/mL H 06/02/25 Urine Protein, (Neg-Trace) Negative mg/dL 06/02/25 Urine Creatinine 111.82 mg/dL 06/02/25 Assessment & Plan Assessment & Plan (1) Essential hypertension: Code(s): I10 - Essential (primary) hypertension Category: Medical (2) Obesity: Code(s): E66.9 - Obesity, unspecified Category: Medical (3) Uncontrolled diabetes mellitus with hyperglycemia: Code(s): E11.65 - Type 2 diabetes mellitus with hyperglycemia Category: Medical Plan Hypertension Patient regularly checks his blood pressure at his home and is usually around:115-130, at office is usually around: Currently she is on losartan 100 mg, spironolactone 12.5 mg, metoprolol 25 b.i.d. Blood pressures at home are around 100-120mmHg systolic. renin 0.84, aldosterone 13.1; ratio normal sleep study done an year ago was normal She is nonsmoker, h/o CAD- grand mother, no stroke in family, diabetic. Her relative risk for major cardiovascular events is possibly 25.6% in next 10 years. on Niya since may 2025 weighing 175lbs in 05/2025, lost some weight 8lbs in a month; explained her loosing weight would definitely help controlling blood pressures. 24AMB blood pressure monitoring in 05/2025: Average blood pressures 128/75, while awake 133/79 and while asleep 109/63. Daytime blood pressures are falsely elevated as patient had to come to the lab for blood draws and had to run across the buildings to get the blood draw done between 9 and 10:30 a.m. during which her blood pressure is elevated to 150 systolics to 180 systolic. When she was done and relaxing at home her blood pressure was back to baseline around 120-130 mm Hg. In the afternoon when she went for walk again blood pressure increased to 170 systolic. plan: - target SBP 120-130/90 or <140/90 - if the blood pressures stays below 100 systolic stop spironolactone and give us a call. - weight reduction, low salt diet, smoking cessation, plasma aldosterone and renin levels to look for the ratio, TSH ordered - since renin levels are low will hold off on renal artery dopplers to rule out renal artery stenosis - will plan for 24 hr sodium, aldosterone and creatinine excretion if needed in the future. - avoid any NSAID intake, excessive decongestant intake, herbal preparations intake Vitamin D deficiency: not on supplements Vitamin D 39.1 and PTH level 106.9. Diabetes mellitus: HbA1c :9.3 added metformin she could take only once a day will send a prescription with extended release. 1000mg states its non formulary if expensive will send 750mg Benfits of loosing weight would help her blood pressures, so will send her a refill for Mounjaro. Medications: New metformin ER (Fortamet) 1,000 mg PO DAILY 30 tabs 2RF 30 days tirzepatide (Mounjaro) 5 mg (0.5 mL) subcut QWEEK 2 mL 3RF Coding Level of Care Code Est Pt Level 4 (35577) Diagnoses Essential hypertension I10 Obesity E66.9 Uncontrolled diabetes mellitus with hyperglycemia E11.65
--- OUTSIDE RECORDS SUMMARY | 2025-07-13 17:23 | XMS_ITS | Clinical Summary ---
Author Organization [employer] Address [address] [place] [address] Care Team Providers Care Finance Clerk Name Role Phone Barbara Breen MD Primary Care Pro vider Allergies Active Allergy Reactions Criticality Noted Date Comments Nifedipine Rash Low 08/23/2021 Medications FreeStyle lancetsIndication s:Type 2 diabetes mellitus with hyperosmolarity without coma, without long-term current use of insulin ([facility]) CHECK BY FINGERSTICK ROUTE 3 TIMES EVERY DAY 100 each 11 023 Active glucose blood (Dream[employer] SoftwareTouch Verio) test stripIndications: Type 2 diabetes mellitus with hyperosmolarity without coma, without long-term current use of insulin ([facility]) Test blood sugar 3 times a day 100 strip 11 023 Active Blood Glucose Monitoring Suppl (OneTouch Verio Flex System) w/Device kitIndications:Ty pe 2 diabetes mellitus with hyperosmolarity without coma, without long-term current use of insulin ([facility]) Test blood sugars 3 times a day 1 kit 023 Active OneTouch Delica Lancets 33G miscIndications:T ype 2 diabetes mellitus with hyperosmolarity without coma, without long-term current use of insulin ([facility]) Teas blood sugars 3 times a day 100 each 11 023 Active losartan (Cozaar) 100 MG tabletIndications :Primary hypertension TAKE 1 TABLET BT MOUTH EVERY DAY 90 tablet 025 Active spironolactone (Aldactone) 25 MG tablet TAKE 1/2 TABLET ORALLY DAILY FOR 90 DAYS 025 Active metoprolol tartrate (Lopressor) 25 MG tablet TAKE 1 TABLET BY MOUTH 2 TIMES A DAY PLEASE CALL FOR CARDIOLOGY FOLLOW UP APPNT- [phone] Active atorvastatin (Lipitor) 20 MG tabletIndications :Other hyperlipidemia TAKE 1 TABLET BY MOUTH EVERY DAY IN THE EVENING 90 tablet Active sodium chloride (Mccreary) 0.65 % nasal spray Administer 1 spray [...] if needed each day (Allergies). 90 tablet 2024 Active fluticasone (Flonase) 50 MCG/ACT nasal spray ADMINISTER 1-2 SPRAYS INTO EACH NOSTRIL ONCE PER DAY FOR 28 DAYS. SHAKE GENTLY. BEFORE FIRST USE, PRIME PUMP. AFTER USE, CLEAN TIP AND REPLACE CAP.TREAT POSTANSAL DRIP FOR 28 DAYS 48 mL 1 Active Blood Glucose Monitoring Suppl (Retail[employer] Verio Flex System) w/Device kitIndications:Ty pe 2 diabetes mellitus without complication, without long-term current use of insulin (HCC) 1 Device at noon and 1 Device in the evening. 1 kit Active Tirzepatide (Mounjaro) 5 MG/0.5ML solution auto-injector Inject 5 mg as directed 1 (one) time per week. INJECT ONE PEN (=5 MG) SUBCUTANEOUSLY ONCE A WEEK 2 mL Active levothyroxine (Synthroid, Levoxyl) 75 MCG tabletIndications :Hypothyroidism, unspecified type TAKE 1 TABLET BY MOUTH EVERY DAY 90 tablet Active levothyroxine (Synthroid, Levoxyl) 75 MCG tabletIndications :Hypothyroidism, unspecified type TAKE 1 TABLET BY MOUTH EVERY DAY 90 tablet 025 2024 Discontinued Tirzepatide (Mounjaro) 2.5 MG/0.5ML solution auto-injector Inject 2.5 mg under the skin 1 (one) time per week. Start 2.5 mg weekly x 4 weeks, then increase to 5 mg weekly x 4 weeks, then 7.5 mg weekly 2 mL 025 2024 Discontinued Active Problems Problem Noted [...] at this time for further testing Health care maintenance 02/05/2023 Assessment & Plan (03/28/2023 5:56 PM EDT): -menopause : 56y of age -pap smear:2020 neg per pt--pt f w [facility] at [facility]-has apt x 04/09/23 -MM: 07/2022 : birads [...] -pap smear:2020 neg per pt--pt f w [employer] at [facility]-pt states will schedule apt w them and [...] -pap smear:2020 neg per pt--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[employer] 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 [facility]-pt states will schedule apt w them and [...] 2017 w zostavax--today to get vaccine at px to start series of shingrix ---2nd dose [...] diet and exercise,discussed healthy life style -discussed pan puller referral but wants t hold x now -Will discuss w pt about consider low dose trulicity at her next apt x DM and obesity Assessment & Plan (03/05/2023 3:17 PM EDT): Advised pt to improve diet and exercise,discussed healthy life style -discussed pan puller referral but wants t hold x now Assessment & Plan (02/05/2023 12:35 PM EDT): Advised pt to improve diet and exercise,discussed healthy life style -discussed pan puller referral but wants t hold x now [...] -last 3 y ago-normal per pt-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 already -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 -will refer at next visit if uncontrol result -DM labs in 6 mo -aprox 08/2023 Assessment & Plan (03/05/2023 3:16 PM EDT): Mentioned hx of DM -controlled w meds 01/2023 Hb1AC Is 5.9, LDL 64, Microalb neg Not tolerated metformin before -life style changes advised -ophthalmology -lat 3 y ago-normal per pt-referred already -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 -will refer at next visit if uncontrol result -DM labs in 6 mo Assessment & Plan (02/05/2023 12:33 PM EDT): Mentioned hx of DM -controlled w meds -will do fasting labs -ophthalmology -lat 3 y ago-normal per pt-referred today -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 -will refer at next visit if uncontrol [...] Encounters Date Type Department Care Team Description 07/07/2025 Refill [facility] [address], [place] [phone] Barbara Breen MD Hypothyroidism, unspecified type 06/27/2025 Refill [facility] [address] [place] [address] Barbara Breen MD 06/24/2025 Orders Only [facility] [address] [facility] [place] [address] Barbara Breen MD Type 2 diabetes mellitus without complication, without long-term current use of insulin (CMS/HCC) (Primary Dx) 06/23/2025 Telephone [facility] [address] [place] [address] Barbara Breen MD Med Refill 06/07/[address] [address] Barbara Breen MD 06/02/2025 Results Follow-Up [address] [address] Alissa Miller RN Hemoglobin A1c, Urinalysis Complete 06/02/2025 Orders Only GENERIC EXTERNAL DATA DEPARTMENT Provider, Generic External Data 05/26/2025 Telephone [facility] [address] [place] [address] Barbara Breen MD Prior Authorization (Irma) 05/19/2025 Results Follow-Up [address] [address] Barbara Breen MD XR Chest 2 Views 05/18/2025 2:15 PM EDT Office Visit [address] [address] Barbara Breen MD Breast cancer screening by mammogram (Primary Dx); Postmenopausal; Type 2 diabetes mellitus without complication, without long-term current use of insulin (CMS/HCC); Uncontrolled hypertension; Dietary counseling; Exercise counseling; Annual physical exam; Dry cough; Encounter for immunization; Essential hypertension; Acquired hypothyroidism; Obesity (BMI 30.0-34.9); Elevated bilirubin; Heartburn; Health care maintenance; Memory loss 05/18/2025 Travel 05/12/2025 Refill [facility] [address] [place] [phone] Barbara Breen MD Other hyperlipidemia from Last 3 Months Immunizations Immunization Administration Dates Next Due Influenza High-dose Quadriva lent Preservative Free 06/28/2023,07/04/2022 Influenza injectable quadriv alent IIV4 with preservative 07/02/2018,07/02/2017 Influenza injectable quadriv alent preservative free 06/30/2021,06/22/2020,07/28/2019,07/05 Influenza, High Dose Seasona l, Preservative Free 07/05/2025,06/25/2024 Influenza, IIV3, injectable 06/09/2014 Influenza, Split (incl. [...] Description 07/22/2025 11:15 AM EDT Office Visit [facility] [address] [place] [phone] Barbara Breen MD [address] [place] [address] Health Maintenance Due Date Last Done Comments CT Colonography 1957 Colonoscopy 1957 Colorectal Cancer Screening 1957 FIT DNA/Cologuard 1957 FIT 1957 FOBT 1957 Sigmoidoscopy 1957 Diabetes: Foot Exam 1967 Eye Exam 1967 Alcohol/Substance Use Screening 1969 SDOH Screening 01/30/2024 01/29/2023 Depression Screening 02/06/2024 02/05/2023, 02/06/20 COVID-19 Vaccine ( season) 2025 06/25/2024, 07/04/2022, 09/19/2021, Additional history exists Mammogram 08/19/2025 08/19/2023, 07/31, [...] Smear Discontinued 04/09/2023 Zoster Vaccines Completed 05/07/2023, 06/0 02/2023, 07/25/2017 Influenza Vaccine Completed 07/05/2025, , 06/28/2023, Additional history exists HIB Vaccines Aged Out [...] Procedure Name Priority Date/Time Associated Diagnosis Comments BD DEXA AXIAL Routine 07/09/2025 1:07 PM EDT Postmenopausal ALDOSTERONE/PLASMA RENIN ACTIVITY RATIO, LC/MS/MS Routine 06/02/2025 9:20 AM EDT TSH W/REFLEX [...] without long-term current use of insulin (CMS/HCC) POCT GLUCOSE Routine 05/18/2025 3:03 PM EDT [...] Recently Relevant to Health Maintenance Results * BD DEXA Axial (07/09/2025 1:07 PM EDT) Anatomical Region Laterality Modality Body Radiographic Lauren ging 07/09/2025 1:07 PM EDT Narrative 07/09/2025 1:19 PM EDT [facility] [address] [place] [address] Mammography Report Signed Patient: Laura Arellano MR#: [id number] 7 : 1955 Acct:[id number] Age/Sex: 70 / F ADM Date: 07/09/25 Loc: [facility] Attending Dr: Barbara Donahue MD Ordering Physician: Barbara Breen MD Re sults: Date of Service: 07/09/25 Follow Up: Procedure(s): XR DEXA axial skeleton Accession Number(s): [id number] cc: Barbara Breen MD Reason For Exam: pt is postmenopasula needs to r/o osteoporosis EXAMINATION: DXA BONE DENSITY AXIAL HISTORY: pt is postmenopausal needs to r/o osteoporosis TECHNIQUE: [employer] Dual energy absorptiometry (DEXA) of the lumbar spine, total left hip, and femoral neck was performed. COMPARISON: Comparison is made with the prior examination dated 07/26/2022. FINDINGS: The bone mineral density of the lumbar spine is 1.163 g/cm2, corresponding to a T-score of -0.1, and a Z-score of 1.2. This is indicative of normal bone mineral density. This represents a BMD change of 1.5% compared to the prior exam. This is not statistically significant. The bone mineral density of the left total hip is 1.035 g/cm2, corresponding to a T-score of 0.2, and a Z-score of 1.4. This is indicative of normal bone mineral density. This represents a BMD change of 2.4% compared to the prior exam. This is not statistically significant. The bone mineral density of the left femoral neck is 0.971 g/cm2, corresponding to a T-score of -0.5, and a Z-score of 1.0. This is indicative of normal bone mineral density. This represents a BMD change of 3.6% compared to the prior exam. FRACTURE RISK: The FRAX index suggests a ten year probability of major osteoporotic fracture of 4.3%, and of hip fracture 0.3%. MM/XR DEXA axial skeleton IMPRESSION: Based on bone mineral density, and according to World Health Organization (WHO) criteria, the diagnosis is consistent with normal bone mineral density. Statistically, 68% of repeat scans fall within 1 SD (+/- 0.010 g/cm2 for AP spine L1-L4) and 1 SD (+/- 0.012 g/cm2 for femur total) FRAX is a trademark of the [employer]'s [place] for Metabolic Bone Disease, a World Health Organization (WHO) Collaborating Center. Electronically signed by: Adryan Chandra MD 07/09/2025 01:16 PM EDT Dictated By: Adryan Chandra MD Signed By: <Electronically signed by Adryan Chandra MD in OV> 07/09/25 1316 DD/ 1307 TD/TT: 07/09/25 1310 Retail Sales Representative: Procedure Note Donotuseinterpreter, Image - 07/09/2025 [facility] [address] [place] [address] Mammography Report Signed Patient: Laura Arellano EMR#: [id number] 7 : 7Acct:[id number] Age/Sex: 70 / FADM Date: 07/09/25 Loc: [facility] Attending Dr: Barbara Donahue MD Ordering Physician: Barbara Breen sults: Date of Service: 07/09/25Follow Up: Procedure(s): XR DEXA axial skeleton Accession Number(s): [id number] cc: Barbara Breen MD Reason For Exam: pt is postmenopasula needs to r/o osteoporosis EXAMINATION: DXA BONE DENSITY AXIAL HISTORY: pt is postmenopausal needs to r/o osteoporosis TECHNIQUE: [employer] Dual energy absorptiometry (DEXA) of the lumbar spine, total left hip, and femoral neck was performed. COMPARISON: Comparison is made with the prior examination dated 07/26/2022. FINDINGS: The bone mineral density of the lumbar spine is 1.163 g/cm2, corresponding to a T-score of -0.1, and a Z-score of 1.2. This is indicative of normal bone mineral density. This represents a BMD change of 1.5% compared to the prior exam. This is not statistically significant. The bone mineral density of the left total hip is 1.035 g/cm2, corresponding to a T-score of 0.2, and a Z-score of 1.4. This is indicative of normal bone mineral density. This represents a BMD change of 2.4% compared to the prior exam. This is not statistically significant. The bone mineral density of the left femoral neck is 0.971 g/cm2, corresponding to a T-score of -0.5, and a Z-score of 1.0. This is indicative of normal bone mineral density. This represents a BMD change of 3.6% compared to the prior exam. FRACTURE RISK: The FRAX index suggests a ten year probability of major osteoporotic fracture of 4.3%, and of hip fracture 0.3%. MM/XR DEXA axial skeleton IMPRESSION: Based on bone mineral density, and according to World Health Organization (WHO) criteria, the diagnosis is consistent with normal bone mineral density. Statistically, 68% of repeat scans fall within 1 SD (+/- 0.010 g/cm2 for AP spine L1-L4) and 1 SD (+/- 0.012 g/cm2 for femur total) FRAX is a trademark of the [employer] [place] for Metabolic Bone Disease, a World Health Organization (WHO) Collaborating Center. Electronically signed by: Adryan Chandra MD 07/09/2025 01:16 PM EDT RP Dictated By: Adryan Chandra MD Signed By: <Electronically signed by Adryan Chandra MD in OV> 07/09/25 1316 DD/ 1307 TD/TT: 07/09/25 1310 Retail Sales Representative: [facility] CenterStephanieKaylin Donahue MD IM DXA PROCEDURE S Final Result * Vitamin D, 25-Hydroxy, Total, Immunoassay (06/02/2025 9:20 AM EDT) [facility] Vitamin D 25-OH Total 39.1 >30 ng/mL [facility] Comment: Health Based Reference Values*< 20 ng/mL Wihusqehf32-33 ng/mL Insufficient> 30 ng/mL Sufficient*Jonathan AVENDAÑO. N [...] ORDERAB LES Final Result Performing Organization Address [facility] Co de Phone Number [facility] [address] [place] [phone] * TSH with Reflex to Free T4 (06/02/2025 9:20 AM EDT) TSH reflex Free T4 2.21 0.32 - 4.0 uIU/mL [facility] 06/02/2025 9:20 AM EDT 06/02/2025 9:23 AM EDT Generic External Data Provider LAB BLOOD ORDERAB LES Final Result Performing Organization Address [facility] Co de Phone Number [facility] [address] [place] [phone] * Aldosterone/Plasma Renin Activity Ratio, LC/MS/MS (06/02/2025 9:20 AM EDT) Aldosterone 11 see note ng/dL [facility] Comment:Unable to flag abnor mal result(s), please refer to reference range(s) below:Adult Reference Ranges for Aldosterone, LC/MS/MS: Upright 8:00 - 10:00 am < or = 28 ng/dL Upright 4:00 - 6:00 pm < or = 21 ng/dL Supine 8:00 - 10:00 am 3 - 16 ng/dLTHIS TEST WAS PERFORMED AT:[employer]/[id number] [place] [address]FPLVASODESIRAE PARKER MD,PHD Plasma Renin Activity 0.84 0.25 - 5.82 ng/mL/h [facility] Aldosterone/Renin Ratio 13.1 0.9 - 28.9 Ratio [facility] Comment:This test was develo ped and its analytical performancecharacteristics have been determined by [employer] [place], [place]. It hasnot been cleared or approved by the U.S. Food and DrugAdministration. This assay has been validated pursuantto the CLIA regulations and is used for clinicalpurposes.THIS TEST WAS PERFORMED AT:[employer]/[id number] [place] [address]ELEWAUNDESIRAE PARKER MD,PHD 06/02/2025 9:20 AM EDT 06/02/2025 9:23 AM EDT Generic External Data Provider LAB BLOOD ORDERAB LES Final Result Performing Organization Address [facility] Co de Phone Number [facility] [address] [place] [phone] * (ABNORMAL) PTH, Intact Without Calcium (06/02/2025 9:20 AM EDT) Parathyroid Hormone, Intact 106.9(H) 8.7 - 77.1 pg/mL [facility] 06/02/2025 9:20 AM EDT 06/02/2025 9:23 AM EDT Generic External Data Provider LAB BLOOD ORDERAB LES Final Result Performing Organization Address [facility] Co de Phone Number [facility] [address] [place] [phone] * Magnesium (06/02/2025 9:20 AM EDT) Magnesium 1.8 1.6 - 2.6 mg/dL [facility] 06/02/2025 9:20 AM EDT 06/02/2025 9:23 AM EDT Generic External Data Provider LAB BLOOD ORDERAB LES Final Result Performing Organization Address [facility] Co de Phone Number [facility] [address] [place] [phone] * (ABNORMAL) Hemoglobin A1c (06/02/2025 9:20 AM EDT) Hemoglobin A1c 9.3(H) <6.0 % [facility] Comment:Hemoglobin A1C Refer ence Range Adults: 4.8 - 6.0 % Non diabetic: < 6.0 % Goal: < 7.0 %Additional Action Suggested: > 8.0 %Note: Hemoglobin A1c results are invalid for patients with abnormal amounts of HbF. Blood transfusions may impact the HbA1c concentration in the patient sample. Estimated Average Glucose 220 mg/dL [facility] Comment:eAG = Estimated ave rage glucose which is %A1C expressed asaverage glucose, using the formula of the [id number] Glucose study (ADAG), Diabetes Care, Vol.31,#8,Apr. 2007 06/02/2025 9:20 AM EDT 06/02/2025 9:23 AM EDT us Generic External Data Provider LAB BLOOD ORDERAB LES Final Result Performing Organization Address [facility] de Phone Number [facility] [address] [place] [phone] * Lipid Panel, Standard (06/02/2025 9:20 AM EDT) Triglycerides 116 <150 mg/dL [facility] Comment:Desirable Triglyceri de: less than 150 mg/dLBorderline High Triglyceride 150-199 mg/dLHigh Triglyceride: 200-499 mg/dLVery High Triglyceride: greater than or equal to 5OO mg/dL Cholesterol 134 <200 mg/dL [facility] Comment:Desirable Cholestero l: less than 200 mg/dLBorderline High Cholesterol: 200-239 mg/dLHigh Cholesterol: greater than 239 mg/dL LDL Cholesterol Calculated 63 <100 mg/dL [facility] Comment:Desirable LDL: less than 100 mg/dLNear Optimal/Above Optimal LDL: 110- 129 mg/dLBorderline High LDL: 130-159 mg/dLHigh LDL: 160-189 mg/dLVery High LDL: greater than or equal to 190 mg/dL HDL Cholesterol 48 >40 mg/dL [facility] Comment:Desirable HDL: great er than 40 mg/dL Note: This HDL assay may give artificially low results in patients with liver disease. 06/02/2025 9:20 AM EDT 06/02/2025 9:23 AM EDT us Generic External Data Provider LAB BLOOD ORDERAB LES Final Result Performing Organization Address [facility]/ZIP Co de Phone Number [facility] [address] [place] [phone] * (ABNORMAL) Basic Metabolic Panel (06/02/2025 9:20 AM EDT) Sodium 140 135 - 145 mmol/L [facility] Potassium 3.9 3.3 - 5.1 mmol/L [facility] Chloride 104 96 - 108 mmol/L [facility] Carbon Dioxide 27 22 - 29 mmol/L [facility] Anion Gap 13 12 - 20 [facility] Urea Nitrogen (BUN) 15 9 - 16 mg/dL [facility] Creatinine, Serum 0.93 0.5 - 1.4 mg/dL [facility] Estimated Glomerular Filt Rate 60 [facility] Comment:Chronic Kidney Disea se: Estimated GFR < 60 mL/min/1.29q7Inncmj Kidney Disease: Estimated GFR < 15 mL/min/1.73m2 Glucose 239(H) 60 - 115 mg/dL [facility] Calcium 10.1 8.4 - 10.2 mg/dL [facility] 06/02/2025 9:20 AM EDT 06/02/2025 9:23 AM EDT us Generic External Data Provider LAB BLOOD ORDERAB LES Final Result Performing Organization Address [facility]/ZIP Co de Phone Number [facility] [address] [place] [phone] * Potassium, Random Urine (06/02/2025 8:30 AM EDT) Potassium Urine Random 42.0 mmol/L [facility] 06/02/2025 8:30 AM EDT 06/02/2025 10:22 AM EDT us Generic External Data Provider LAB URINE ORDERAB LES Final Result Performing Organization Address [facility] Co de Phone Number [facility] [address] [place] [phone] * Albumin, Random Urine W/Creatinine (06/02/2025 8:30 AM EDT) Creatinine, Urine 111.82 mg/dL [facility] Microalbumin Urine 6.0 mg/L [facility] Microalbum Creatinine Ratio Ur 5.3 <30 ug/mg cr [facility] Comment:Albumin/Creatinine R atio Reference Ranges: Normal: < 30 ug/mg creatinine Microalbuminuria: 30 - 300 ug/mg creatinineClinical Albuminuria: > 300 ug/mg creatinine 06/02/2025 8:30 AM EDT 06/02/2025 10:22 AM EDT us Generic External Data Provider LAB URINE ORDERAB LES Final Result Performing Organization Address [facility] Co de Phone Number [facility] [address] [place] [phone] * Urine Protein, Total, Random without Creatinine (06/02/2025 8:30 AM EDT) Protein, Total, Random Urine <7 <12 mg/dL [facility] 06/02/2025 8:30 AM EDT 06/02/2025 10:22 AM EDT us Generic External Data Provider LAB URINE ORDERAB LES Final Result Performing Organization Address City/[facility] Co de Phone Number [facility] [address] [place] [phone] * (ABNORMAL) Urinalysis Complete (06/02/2025 8:30 AM EDT) Color Urine Yellow [facility] Appearance Urine Clear [facility] PH 6.5 5.0 - 9.0 [facility] Glucose Urine UA >=1000(A) Negative mg/dL [facility] Urine Blood Negative Negative [facility] Specific [place] - Urine >=1.030(H) 1.005 - 1.025 [facility] Urine Protein Negative Neg-Trace mg/dL [facility] Urine Ketones Trace Negative mg/dL [facility] Nitrite Urine Negative Negative [facility] Leukocyte Esterase Urine Negative Negative [facility] RBC Urine 0-2 0 - 2 /HPF [facility] Urine WBC 0-5 0 - 5 /HPF [facility] Urine Squamous Epithelial Cell 0-2 0 - 2 /HPF [facility] Urine Bacteria Trace None Seen [facility] Hyaline Casts, Urine 0-2 0 - 2 /LPF [facility] 06/02/2025 8:30 AM EDT 06/02/2025 10:22 AM EDT us Generic External Data Provider LAB URINE ORDERAB LES Final Result Performing Organization Address [facility] Co de Phone Number [facility] [address] [place] [phone] * XR Chest 2 Views (05/19/2025 2:01 PM EDT) Anatomical Region Laterality Modality Chest Radiographic Lauren ging 05/19/2025 2:01 PM EDT Narrative 05/19/2025 3:01 PM EDT [facility] [address] [place] [address] XRay Report Signed Patient: Larua Arellano MR#: [id number] 7 : 1955 Acct:[id number] Age/Sex: 70 / F ADM Date: 05/19/25 Loc: HO.CX Attending Dr: Barbara Donahue MD Ordering Physician: Barbara Breen MD Date of Service: 05/19/25 Procedure(s): XR chest 2V Accession Number(s): [id number] cc: Barbara Breen MD EXAMINATION: XR CHEST [...] 05/19/25 1458 DD/ 1401 TD/TT: 05/19/25 1422 Retail Sales Representative: [facility] Procedure Note Donotuseinterpreter, Image - 05/19/2025 [place] [address] XRay Report Signed Patient: Laura Arellano EMR#: [id number] 7 : 1955cct:[id number] Age/Sex: 70 / FADM Date: 05/19/25 Loc: HO.HHCX Attending Dr: Barbara Donahue MD Ordering Physician: Barbara Breen MD Date of Service: 05/19/25 Procedure(s): XR chest 2V Accession Number(s): [id number] cc: Barbara Breen MD EXAMINATION: XR CHEST CLINICAL INFORMATION: 1 mo of onging dry mouth COMPARISON: Chest x-ray 02/20/2021 TECHNIQUE: 2 views of the chest were obtained. FINDINGS: Lungs are well-expanded and clear. The heart size and pulmonary vascularity is normal. No gross bony abnormality. XR/XR chest 2V IMPRESSION: Unremarkable chest examination. Electronically signed by: Joel Calloway MD 05/19/2025 02:58 PM EDT Dictated By: Joel Calloway MD Signed By: <Electronically signed by Jeol Calloway MD in OV> 05/19/25 1458 DD/ 1401 TD/TT: 05/19/25 1422 Retail Sales Representative: [facility] Barbara Donahue MD IMG XR PROCEDURES Final [...] Media Lot # [id number] Lot# Expiration Date [id number] Blood Capillary blood specimen / Unknown 05/18/2025 3:03 PM EDT Barbara Donahue MD POINT OF CARE LIT T ENTER/EDIT ORDERABLES Final Result * BI Mammogram Screening Tomosynthesis Bilateral (08/19/2023 2:46 PM EST) Anatomical Region Laterality Modality Breast Bilateral Mammography 08/19/2023 2:46 PM EST Narrative 09/05/2023 7:34 AM EST [facility] [address] [place], [place] [address] Mammography Report Signed Patient: Laura Arellano MR#: [id number] 7 : 1955 Acct:[id number] Age/Sex: 68 / F ADM Date: 08/19/23 Loc: [facility] Attending Dr: Milton Martin MD Ordering Physician: Barbara Breen MD Re sults: 1Negative Date of Service: 08/19/23 Follow Up: 1 Year From Orig inal Mammogram Procedure(s): MM tomosynthesis screening BI Accession Number(s): [id number] cc: Barbara Breen MD EXAMINATION: MM SCREENING [...] in OV> 09/05/23 0730 DD/ 1446 TD/TT: Retail Sales Representative: Procedure Note Donotuseinterpreter, Image - 09/05/2023 [facility] [address] [place] [address] Mammography Report Signed Patient: Laura Arellano EMR#: [id number] 7 : 1955cct:[id number] Age/Sex: 68 / FADM Date: 08/19/23 Loc: J[facility] Attending Dr: Milton Martin MD Ordering Physician: Barbara Breen sults: 1Negative Date of Service: 08/19/23Follow Up: 1 Year From Orig ina Mammogram Procedure(s): MM tomosynthesis screening BI Accession Number(s): [id number] cc: Barbara Breen MD EXAMINATION: MM SCREENING [...] in OV> 09/05/23 0730 DD/ 1446 TD/TT: Retail Sales Representative: us Barbara Donahue MD IMG BI PROCEDURES Final Result * Pap Smear (04/09/2023 1:25 PM EDT) 04/09/2023 1:25 PM EDT 04/11/2023 10:00 AM EDT [facility] LABS - 05/03/2023 10:26 AM EDT ----- ------- Name: Laura Arellano Age/Sex: 68/F : 1955 Unit#: [id number] Attend Dr: Kimmy Love CNM Re04/09/23 Status: DEP REF Location: [facility] Disch: ----- ------- SPEC : [id number] RECD: 04/11/23-1000 STATUS: CASA PROCTORCristy NUM: [id number] YUKI: 04/09/23-1325 [facility] DR: Kimmy Love CNM ENTERED: 04/11/23-1047 [...] 59, 66, 70) HPV testing performed by [facility], [place], [place]. See reference laboratory pion of the EMR for entire report. Clinical Information LMP: Menopausal Previous PAP test: 2017, Abnormal Other surgery: Leep 2014 SWATHI II Material Received ThinPrep-Cervical Copies To: Kimmy Love CNM [address] [place] [address] Dr. Tolentino [address] [place] [address] [place] [address] Barbara Breen MD [address] [facility] [address] ----- ------- Signed (signature on file) LATASHA Manley ([facility]) 05/03/23 1026 ----- ------- END OF REPORT [facility] External Provider LAB [facility] ORDERABLES Final Result [facility] [address] [place] [phone] * Hepatitis C Antibody with Reflex to HCV, RNA, Quantitative, Real-Time PCR (02/07/2023 8:36 AM EDT) Pathologist [facility] Hepatitis C Antibody NON-REACT JUAN NON-REACT JUAN [facility] [place] [employer] Index 0.10 <1.00 [facility] Comment: HCV antibody was non-reactive. There is no laboratory evidence of HCV infection. In most cases, no further action is required. However, if recent HCV exposure is suspected, a test for HCV RNA (test code 33135) is suggested. For additional information please refer to http://education.Secerno.911 Pets/faq/SNI52c0 (This link is being provided for informational/ educational purposes only.) Blood Venous blood specimen / Unknown 02/07/2023 8:36 AM EDT 02/07/2023 8:37 AM EDT Narrative [facility] - 02/12/2023 12:57 AM EDT FASTING:YES COLLECTION KIT GIVEN TO PATIENT. PATIENT ADVISED TO RETURN. FASTING: YES Barbara Donahue MD LAB BLOOD ORDERAB LES Final Result [facility] [address] [facility], [facility], [place] [address] [facility] [place] [facility] [address] [place] [address] from Last 3 Months or Most Recently Relevant to Health Maintenance Insurance [facility] STANDARD O-SNP Care Teams Finance Clerk Relationship Specialty Start Date End Date Barbara Breen MD [address] [place] [phone] PCP - General Internal Medicine 01/15/23
--- OUTSIDE RECORDS SUMMARY | 2025-07-13 17:23 | XMS_ITS | Encounter Summary ---
Author Organization [employer] Address [address] [place] [address] [place] [address] Care Team Providers Care Ice Cream Freezer Helper Name Role Phone Dede Child [facility] Primary Care Provider [phone] Barbara Breen MD Primary Care Pro vider Reason for Visit * Reason Comments Med Change Request Encounter Details Date Type Department Care Team (Late Contact Info) Description 10/26/2022 Refill [facility] [address] [place] [address] Dede Child FNP [address] [place] [address] Controlled type 2 diabetes mellitus without complication, without long-term current use of insulin ([facility]) (Primary Dx); Type 2 diabetes mellitus with hyperosmolarity without coma, without long-term current use of insulin ([facility]) Social History Tobacco Use Types [...] Description 07/22/2025 11:15 AM EDT Office Visit [facility] [address] [place] [address] Barbara Breen MD [address] [place], [place] [phone] documented as of this encounter Visit Diagnoses Diagnosis Controlled type 2 diabetes mellitus without complication, without long-term current use of insulin (HCC)- Primary Type 2 diabetes mellitus with hyperosmolarity without coma, without long-term current use of insulin (HCC) documented in this encounter Care Teams Ice Cream Freezer Helper Relationship Specialty Start Date End Date Dede Child FNP [address] [place], [place] [phone] PCP - General Family Medicine 10/26/22 01/14/23 Barbara Breen MD [address] [place], [place] [phone] PCP - General Internal Medicine 01/15/23 documented as of this encounter
--- OUTSIDE RECORDS SUMMARY | 2025-07-13 17:23 | XMS_ITS | Encounter Summary ---
Author Organization [employer] Address [address] [place] [address] 7 [place] [address] Care Team Providers Care Engineering Technician Parking Name Role Phone Barbara Breen MD Primary Care Pro vider Reason for Visit * Reason Comments Med Refill Encounter Details Date Type Department Care Team ([facility] st Contact Info) Description 07/07/2025 Refill [facility] [address] [place] [address] Barbara Breen MD [address] [place] [address] Hypothyroidism, unspecified type Social History Tobacco Use [...] 07/22/2025 11:15 AM EDT Office Visit [facility] [address] [place] [phone] Barbara Breen MD [address] [place] [phone] documented as of this encounter Visit Diagnoses Diagnosis Hypothyroidism, unspecified type documented in this encounter Additional Health Concerns Assessment Noted Time PHQ-9 Depression Total Score: 1 02/06/20 10:09 AM EDT documented as of this encounter Care Teams Engineering Technician Parking Relationship Specialty Start Date End Date Barbara Breen MD [address] [place] [phone] PCP - General Internal Medicine 01/15/23 documented as of this encounter
--- OUTSIDE RECORDS SUMMARY | 2025-07-13 17:23 | XMS_ITS | Encounter Summary ---
Author Organization [employer] Address [address] [place] [address] 7t [place] [address] Care Team Providers Care Tapeman Name Role Phone Dede Child BUILD AND DEPLOYMENT ENGINEER Primary Care Provider [phone] Barbara Breen MD Primary Care Pro vider Reason for Visit * Reason Onset Date Comments Med Refill 10/26/2022 Encounter Details Date Type Department Care Team (Late st Contact Info) Description 10/26/2022 Refill [facility] [address] [place] [phone] Milton Martin MD Type 2 diabetes mellitus with hyperosmolarity without coma, without long-term current use of insulin ([facility]) (Primary Dx); Primary hypertension; Hypothyroidism, unspecified type [...] Description 07/22/2025 11:15 AM EDT Office Visit [facility] [address] [place] [address] Barbara Breen MD [address] [place] [address] documented as of this encounter Visit Diagnoses Diagnosis Type 2 diabetes mellitus with hyperosmolarity without coma, without long-term current use of insulin (HCC)- Primary Primary hypertension Unspecified essential hypertension Hypothyroidism, unspecified type documented in this encounter Care Teams Tapeman Relationship Specialty Start Date End Date Dede Child FNP [address] [place], [place] [phone] PCP - General Family Medicine 10/26/22 01/14/23 Barbara Breen MD [address] [place] [phone] PCP - General Internal Medicine 01/15/23 documented as of this encounter
--- OUTSIDE RECORDS SUMMARY | 2025-07-13 17:23 | XMS_ITS | Encounter Summary ---
Author Organization [employer] Address [address] [place] [address] 7 [place] [address] Care Team Providers Care Gear Cutting Machine Operator Name Role Phone Barbara Breen MD Primary Care Pro vider Reason for Visit * Reason Onset Date Comments Med Refill 06/23/2025 Encounter Details Date Type Department Care Team ([facility] st Contact Info) Description 06/23/2025 Telephone [facility] [address] [place] [address] Barbara Breen MD [address] [place] [address] Med Refill Social History Tobacco Use Types Packs/Day Years [...] Telephone Encounter - Alissa Miller RN - 06/24/2025 1:50 PM EDT Please advise on refill request. Pt last had prescription for the blood glucose monitoring suppliesin 09/2022 prescribed by Dede Child CNP. The pt states that she misplaced the current unit and would like a new prescription sent to her preferred pharmacy. * Telephone Encounter - Raquel Christiansen - 06/23/2025 11:32 AM EDT Tc from pt requesting new Glucose monitor Blood Glucose Monitoring Suppl (OneTouch Verio Flex System) w/Device kit To be sent to: - [facility]/pharmacy #[id number] - [place], [place] - [address] [place] [address] documented in this encounter Plan of Treatment Upcoming Encounters Date Type Department Care Team (Late st Contact Info) Description 07/22/2025 11:15 AM EDT Office Visit [facility] [address] [place] [address] Barbara Breen MD [address] [place] [address] documented as of this encounter Visit Diagnoses Not on filedocumented in this encounter Additional Health Concerns Assessment Noted Time PHQ-9 Depression Total Score: 1 02/06/20 10:09 AM EDT documented as of this encounter Care Teams Gear Cutting Machine Operator Relationship Specialty Start Date End Date Barbara Breen MD [address] [place] [phone] PCP - General Internal Medicine 01/15/23 documented as of this encounter
--- OUTSIDE RECORDS SUMMARY | 2025-07-13 17:23 | XMS_ITS | Encounter Summary ---
Author Organization [employer] Address [address] [place] [address] 7 [place] [address] Care Team Providers Care Php Mysql Developer Name Role Phone Barbara Breen MD Primary Care Pro vider Reason for Visit * Reason Comments Med Change Request Encounter Details Date Type Department Care Team ([facility] Contact Info) Description 08/09/2023 Refill [facility] [address] [place] [address] Barbara Breen MD [address] [place] [address] Social History Tobacco Use Types Packs/Day Years [...] Description 07/22/2025 11:15 AM EDT Office Visit [facility] [address] [place] [address] Barbara Breen MD [address] [place] [address] documented as of this encounter Visit Diagnoses Not on filedocumented in this encounter Additional Health Concerns Assessment Noted Time PHQ-9 Depression Total Score: 1 02/06/20 10:09 AM EDT documented as of this encounter Care Teams Php Mysql Developer Relationship Specialty Start Date End Date Barbara Breen MD [address] [place] [phone] PCP - General Internal Medicine 01/15/23 documented as of this encounter
--- OUTSIDE RECORDS SUMMARY | 2025-07-13 17:23 | XMS_ITS | Encounter Summary ---
Author Organization [employer] Address [address] [place] [address] 7 [place] [address] Care Team Providers Care Director Nursery [employer] Name Role Phone Barbara Breen MD Primary Care Pro vider Reason for Visit * Reason Comments Med Refill Encounter Details Date Type Department Care Team (Late Contact Info) Description 03/28/2023 Refill [facility] [address] [place] [address] Barbara Breen MD [address] [place] [address] Social History Tobacco Use Types Packs/Day Years [...] 07/22/2025 11:15 AM EDT Office Visit [facility] [address] [place] [phone] Barbara Breen MD [address] [place], [place] [phone] documented as of this encounter Visit Diagnoses Not on filedocumented in this encounter Additional Health Concerns Assessment Noted Time PHQ-9 Depression Total Score: 1 02/06/20 10:09 AM EDT documented as of this encounter Care Teams Director Nursery [employer] Relationship Specialty Start Date End Date Barbara Breen MD [address] [place] [address] PCP - General Internal Medicine 01/15/23 documented as of this encounter
--- OUTSIDE RECORDS SUMMARY | 2025-07-13 17:23 | XMS_ITS | Encounter Summary ---
Author Organization [employer] Address [address] [place] [address] 7 [place] [address] Care Team Providers Care Joint Yarner Name Role Phone Barbara Breen MD Primary Care Pro vider Reason for Visit * Reason Comments Med Refill Encounter Details Date Type Department Care Team ([facility] Contact Info) Description 08/15/2024 Refill [facility] [address] [place] [address] Barbara Breen MD [address] [place] [address] Other hyperlipidemia Social History Tobacco Use Types [...] t he electric, gas, oil or water [employer] threatened to shut off services in your [...] Description 07/22/2025 11:15 AM EDT Office Visit [facility] MEDICINE [address] [place] [phone] Barbara Breen MD [address] [place] [address] documented as of this encounter Visit Diagnoses Diagnosis Other hyperlipidemia documented in this encounter Additional Health Concerns Assessment Noted Time PHQ-9 Depression Total Score: 1 02/06/20 23 10:09 AM EDT documented as of this encounter Care Teams Joint Yarner Relationship Specialty Start Date End Date Barbara Breen MD [address] [place] [phone] PCP - General Internal Medicine 01/15/23 documented as of this encounter
== END 2025-07-13 15:03 | disposition home or self-care (01) ==
LOC: HO.HKA 14:30
PROVIDERS: PCP Student in an Organized Health Care Education/Training Program; Visit Provider Internal Medicine Critical Care Medicine
DX: I10 Essential (primary) hypertension (principal); E66.9 Obesity, unspecified; E11.65 Type 2 diabetes mellitus with hyperglycemia
CPT/HCPCS: 99214

== ENCOUNTER → 2025-07-13 14:30 | Outpatient (BNVA) | payer OTHER, SELFPAY | PROVIDERS: PCP Student in an Organized Health Care Education/Training Program; Visit Provider Internal Medicine Critical Care Medicine | DX: I10 Essential (primary) hypertension (principal); E66.9 Obesity, unspecified; E11.65 Type 2 diabetes mellitus with hyperglycemia | CPT/HCPCS: 99212 ==